=== PATIENT | female | born 2000 | race Caucasian/White ===

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

== ENCOUNTER 2022-04-10 09:25 | Emergency (ER) | payer OTHER, SELFPAY ==
--- NOTE | ~2022-04-10 | XR_ITS ---
EXAMINATION: XR finger 2nd LT min 2V INDICATION: Pain and swelling of the second finger, laceration TECHNIQUE: Four views of the left second finger are obtained. COMPARISON: None available FINDINGS: Bone alignment is normal. There is no fracture. The joint spaces are normal. There is soft tissue swelling of the finger. No radiopaque foreign body is identified. IMPRESSION: 1. Soft tissue swelling of the finger without acute osseous abnormality identified. Reviewed, dictated and finalized at location A. IMPRESSION: 1. Soft tissue swelling of the finger without acute osseous abnormality identif ied.
[2022-04-10 09:33] VITALS: BP 121/78; PULSE 93; RESP 16; TEMP 37.1; O2SAT 100
--- NOTE | 2022-04-10 09:38 | ED.UPPEXIN ---
HPI - Extremity Injury (Upper) General Chief Complaint: Extremity Injury, Upper Stated Complaint: left 2nd finger injury Time Seen by Provider: 04/10/22 09:55 Source: patient and RN notes reviewed Mode of arrival: ambulatory Limitations: no limitations History of Present Illness HPI narrative: 22-year-old female who is approximately 7 weeks presents concern for injury to the second digit of left hand. Reports she smashed it in a car door just prior to arrival. She reports it swollen, bruised, painful with small area of open skin. She reports decreased range of motion to the digit. She denies decreased sensation or strength. complaint: injury to: left and finger Related Data Home Medications Medication Instructions Recorded Confirmed No Home Medications 04/10/22 04/10/22 Allergies Allergy/AdvReac Type Severity Reaction Status Date / Time No Known Allergies Allergy Mild Verified 04/10/22 09:42 Review of Systems Review of Systems: CONSTITUTIONAL: Denies malaise, chills, sweats, or fever. SKIN: Denies rash or itching, redness, warmth MUSCULOSKELETAL: Reports pain, swelling, bruising to the second digit of the left hand NEUROLOGIC: Denies numbness, weakness All systems reviewed & are unremarkable except as noted in HPI and below PMFSH Past Medical History Medical History Migraine Social History Social History Gender identity (if verbalized by the patient): Female Comments At time of signature, agree with nursing past medical, surgical, social and family history. There is no relevant family history pertinent to the presenting complaint Exam Narrative: GENERAL: Well-appearing, well-nourished, and in no acute distress. HEAD: Normocephalic EYES: PERRLA, conjunctivae clear NECK: Supple. CHEST: Speaks in full sentences. No respiratory distress. HEART: Regular rate and rhythm. Normal and equal peripheral pulses. EXTREMITIES: Second digit of left hand has normal strength and sensation. 5/5 strength with digit flexion, extension. Range of motion limited. No clubbing, cyanosis. Moderate edema, ecchymosis, tenderness noted near the MIP joint. Normal digital cascade with flexion of fingers, median, ulnar and radial nerve intact. Normal sensation of each side of finger. Can perform 'okay' sign, 'cross over finger test of index and middle fingers' and 'thumbs up' sign. No scissoring. Normal thumb opposition. Good capillary refill and radial pulse. Distal capillary refill less than 3 seconds. Patient is right/left hand dominant SKIN: Warn, dry, intact, pink. Skin tear noted on the palmar aspect of the second digit of the left hand at the MIP joint NEURO: Alert and oriented x3. PSYCH: Normal mood and affect Course Course Emergency Course: Discussed benefits versus risks of x-ray with patient being . Patient requests x-ray, says she understand risks. She is worried about working with a broken finger. Patient is aware of diagnosis, understands and agrees to treatment plan. Anticipatory guidance given. Patient agrees to follow-up as directed and is aware of reasons to seek care at the emergency department. Portions of this record may have been created with voice recognition software Level of Care: Express Care Visit Vital Signs Vital signs: Vital Signs Temperature 98.7 F 04/10/22 09:33 Pulse Rate 93 04/10/22 09:33 Respiratory Rate 16 04/10/22 09:33 Blood Pressure 121/78 04/10/22 09:33 Pulse Oximetry 100 04/10/22 09:33 Oxygen Delivery Room Air 04/10/22 09:33 Temperature 98.7 F 04/10/22 09:33 Pulse Rate 93 04/10/22 09:33 Respiratory Rate 16 04/10/22 09:33 Blood Pressure 121/78 04/10/22 09:33 Pulse Oximetry 100 04/10/22 09:33 Oxygen Delivery Room Air 04/10/22 09:33 Reviewed. MDM - Extremity Injury (Upper) MDM Narrative Medical decision spencer
== END 2022-04-10 10:55 | disposition home or self-care (01) ==
PROVIDERS: Emergency Provider Nurse Practitioner; PCP Physician Assistant
DX: O9A.211 Injury, poisoning and certain other consequences of external causes complicating pregnancy, first trimester (principal); Z3A.01 Less than 8 weeks gestation of pregnancy; S63.611A Unspecified sprain of left index finger, initial encounter; X58.XXXA Exposure to other specified factors, initial encounter; J45.909 Unspecified asthma, uncomplicated
CPT/HCPCS: 29130; 73140; 99213; G0463

== ENCOUNTER 2022-09-21 23:28 | Observation (INO) | payer OTHER, SELFPAY ==
--- NOTE | 2022-09-21 23:28 | PC.NURSE ---
Patient arrived to OB unit with complaint of pain on upper abdomen, sides and a tight abdomen. Patient states that symptoms have been present x1 day. Patient states she has taken tylenol and warms baths at home. Patient denies any LOF and reports movement appropriate for gestational age.
[2022-09-21 23:39] VITALS: BP 103/63; PULSE 78
[2022-09-21 23:40] VITALS: BMI 21.9
--- NOTE | 2022-09-21 23:44 | OBADM ---
This patient, Anu Moss, admitted to the OB room OB Post 117 for observation. Patient/family oriented to hospital policies and general routines including ID bracelet, bed and alarms, visiting hours, pain management, procedures, bathroom and other care routines, personal items, smoking policy, room service/diet, and visiting hours. Patient/Family are encouraged to report perceived risks to care and to ask questions if they do not understand what they are told or what they should do.
--- NOTE | 2022-09-22 00:32 | PC.NURSE ---
Updated Dr. Lopez on maternal and assessment. FHT appropriate for gestational age. No contractions noted via toco monitor. Abdomen palpates soft. VSS. Patient reports upper abdominal pain prior to arrival, patient states she is resting comfortably currently and denies pain. Patient reports active movements.
--- NOTE | 2022-09-25 02:34 | PM.OBTRLD ---
OB - Triage/Final Diagnosis Visit Information Comments/Additional reasons for admission: I have assessed the risk for this patient, Anu Moss, and determined that she would benefit from observation care. Final Diagnosis (1) Cramping affecting , antepartum: Code(s): O26.899 - Other specified related conditions, unspecified trimester; R10.9 - Unspecified abdominal pain Status: Acute
== END 2022-09-22 00:45 | disposition home or self-care (01) ==
PROVIDERS: Admitting Provider Obstetrics & Gynecology; PCP Physician Assistant; Visit Provider Obstetrics & Gynecology
DX: O26.899 Other specified pregnancy related conditions, unspecified trimester (principal); R10.10 Upper abdominal pain, unspecified
CPT/HCPCS: G0378; G0379

== ENCOUNTER 2022-12-08 19:53 | Inpatient (IN) | payer OTHER, SELFPAY ==
[2022-12-08] VITALS (14 sets, daily range): BP systolic 96–151; BP diastolic 70–96; PULSE 51–72; TEMP 36.6
--- NOTE | 2022-12-08 20:15 | LDADM ---
This patient, Anu Moss, was admitted to Labor/Delivery/Recovery 108 on 12/08/22 at 19:53. Plans for labor, pain management and were discussed with patient. Patient/family oriented to hospital policies and general routines including ID bracelet, bed and alarms, visiting hours, pain management, procedures, bathroom and other care routines, personal items, smoking policy, room service/diet and guest tray routines, infant security routines, and visiting hours. Patient/Family are encouraged to report perceived risks to care and to ask questions if they do not understand what they are told or what they should do. See OBIX for further documentation.
[2022-12-08 20:54] LABS: Basophils Percent Auto 0.2 % (0.2-1.2); Eosinophils Percent Auto 0.4 % (0-4.4); Hematocrit 32.4 % (37.0-47.0); Hemoglobin 10.8 g/dL (12.0-15.0); Immature Granulocyte Absolute 0.03 K/mm3 (0.00-0.031); Immature Granulocyte Percent A 0.3 % (0-0.5); Lymphocytes Absolute Auto 1.33 K/mm3 (0.9-3.2); Lymphocytes Percent Auto 13.1 % (18.3-44.2); Mean Corpuscular HGB Conc 33.3 g/dl (32-36); Mean Corpuscular Volume 87.1 fl (80-100); Mean Platelet Volume 9.3 fl (7.4-10.4); Monocytes Absolute Auto 0.7 K/mm3 (0.1-0.6); Monocytes Percent Auto 6.8 % (2.6-8.5); Neutrophils Percent Auto 79.2 % (45.5-73.1); Platelet Count Result 246 k/mm3 (150-375); Red Blood Count 3.72 M/mm3 (4.2-5.4); Red Cell Distribution Width 13.1 % (11.5-14.5); White Blood Count 10.1 K/mm3 (4.5-10.0)
[2022-12-08] MEDS: miSOPROStol 25 MCG TABLET VAGINAL (21:13)
[2022-12-08] MEDS: LACTATED RINGERS 1,000 ML 125 ML IV CONT (21:14)
[2022-12-09] VITALS (232 sets, daily range): BP systolic 95–175; BP diastolic 51–140; PULSE 48–170; RESP 15–16; TEMP 36.3–37.1; O2SAT 93–100
--- NOTE | 2022-12-09 01:26 | WPDANESEPP ---
Anes - Eval Pre Procedure Procedure: Labor epidural Date/Time: 12/09/22 01:26 Pre Op Diagnosis: IOL Patient Data Age: 22 Gender: F Height: Weight: Last Vital Signs Temp 36.8 C 12/09/22 00:30 Pulse 69 12/09/22 01:15 Resp 15 12/09/22 00:30 BP 118/74 12/09/22 01:15 O2 Del Method Room Air 12/08/22 20:13 Allergies Allergy/AdvReac Type Severity Reaction Status Date / Time No Known Allergies Allergy Mild Verified 09/21/22 23:40 Home Medications Medication Instructions Recorded Confirmed Type Vitamin 1 tablet PO DAILY 09/21/22 12/08/22 History ondansetron 4 mg disintegrating 4 mg PO DAILY PRN Nausea 09/21/22 12/08/22 History tablet Laboratory Tests 12/08/22 12/08/22 12/08/22 20:26 20:26 20:26 WBC 10.1 K/mm3 H K/mm3 (4.5-10.0) RBC 3.72 M/mm3 L M/mm3 (4.2-5.4) Hgb 10.8 g/dL L g/dL (12.0-15.0) Hct 32.4 % L % (37.0-47.0) MCV 87.1 fl fl (80-100) MCH 29.0 pg pg (26-34) MCHC 33.3 g/dl g/dl (32-36) RDW 13.1 % % (11.5-14.5) Plt Count 246 k/mm3 k/mm3 (150-375) MPV 9.3 fl fl (7.4-10.4) Immature Gran % (Auto) 0.3 % % (0-0.5) Neut % (Auto) 79.2 % H % (45.5-73.1) Lymph % (Auto) 13.1 % L % (18.3-44.2) [place] % (Auto) 6.8 % % (2.6-8.5) Eos % (Auto) 0.4 % % (0-4.4) Baso % (Auto) 0.2 % % (0.2-1.2) Lymph # (Auto) 1.33 K/mm3 K/mm3 (0.9-3.2) [place] # (Auto) 0.7 K/mm3 H K/mm3 (0.1-0.6) Eos # (Auto) 0.0 K/mm3 K/mm3 (0-0.3) Baso # (Auto) 0.0 K/mm3 K/mm3 (0.0-0.1) Abs Immat Gran (auto) 0.03 K/mm3 K/mm3 (0.00-0.031) Absolute Neuts (auto) 8.0 K/mm3 H K/mm3 (1.3-6.7) Absolute Nucleated RBC 0.0 K/mm3 K/mm3 (0.0-0.012) Nucleated RBC % 0.0 % % (0.0-0.2) RPR Pending Blood Type O Positive Antibody Screen Negative Patient hx anesthesia problems: none Family hx anesthesia problems: none Results Review: All pre-operative results and documents have been reviewed as part of the pre-operative evaluation. [facility] Past Medical History Medical History ADD (attention deficit disorder) Anxiety and depression Asthma Migraine Migraine Scoliosis Family History Family History Mother Hypertension Bipolar 1 disorder Grandparent High cholesterol Bipolar 1 disorder Father Bipolar 1 disorder Social History Social History Smoking status: Never smoker Substance use: never Lack of Transportation: No Lack of Food: Never True Current Housing: I Have Housing Concerned About Future Housing: No Difficulty Paying Gas/Electric Bills: No Difficulty Paying for Meds: No Currently Unemployed: YES Education: High School Diploma/GED Difficulty w/ Childcare or Family Care: No Gender identity (if verbalized by the patient): Female Spiritual care concerns: No Exam Day of Procedure 12/09/22 01:26 Patient weight: normal Heart: regular rate and rhythm Lungs: normal air movement Airway: Mallampati scale Neurological: alert and oriented
[2022-12-09] MEDS: OXYTOCIN 30 UNITS/NS 500 ML 30 UNITS/500 ML BAG IV CONT (04:39)
[2022-12-09] MEDS: LACTATED RINGERS 1,000 ML 125 ML IV CONT ×2 (06:05→08:28)
[2022-12-09] MEDS: TERBUTALINE SULFATE 1 MG/ML VIAL 0.25 MG SUB-Q (07:21)
--- NOTE | 2022-12-09 07:27 | PM.IMHP ---
H&P: HPI History of Present Illness Date/Time: 12/09/22 07:27 Chief Complaint: induction of labor Narrative: Anu is a 22yo G1 at 39.1 IOL for IUGR. Normal dopplers and testing. otherwise uncomplicated. Received cytotec x1 and pitocin overnight, has had a couple prolonged decelerations this morning, one just now following AROM. Review of Systems Review of Systems: All systems reviewed & are unremarkable except as noted in HPI and below PMFSH Past Medical History Medical History ADD (attention deficit disorder) Anxiety and depression Asthma Migraine Migraine Scoliosis Family History Family History Mother Hypertension Bipolar 1 disorder Grandparent High cholesterol Bipolar 1 disorder Father Bipolar 1 disorder Social History Social History Smoking status: Never smoker Substance use: never Lack of Transportation: No Lack of Food: Never True Current Housing: I Have Housing Concerned About Future Housing: No Difficulty Paying Gas/Electric Bills: No Difficulty Paying for Meds: No Currently Unemployed: YES Education: High School Diploma/GED Difficulty w/ Childcare or Family Care: No Gender identity (if verbalized by the patient): Female Spiritual care concerns: No Meds Home Medications and Allergies Home Medications Medication Instructions Recorded Confirmed Type Vitamin 1 tablet PO DAILY 09/21/22 12/08/22 History ondansetron 4 mg disintegrating 4 mg PO DAILY PRN Nausea 09/21/22 12/08/22 History tablet Allergies Allergy/AdvReac Type Severity Reaction Status Date / Time No Known Allergies Allergy Mild Verified 09/21/22 23:40 Vital Signs Vital Signs - 24 hr 12/08/22 20:13 12/08/22 21:00 12/08/22 21:30 Temperature Pulse Rate 68 60 Respiratory Rate Blood Pressure 123/70 137/89 Pulse Oximetry Oxygen Delivery Room Air 12/08/22 21:45 12/08/22 20:00 12/08/22 22:00 Temperature 98 F 98 F Pulse Rate 61 62 Respiratory Rate Blood Pressure 119/77 137/83 Pulse Oximetry Oxygen Delivery 12/08/22 22:15 12/08/22 22:37 12/08/22 22:45 Temperature Pulse Rate 63 62 57 L Respiratory Rate Blood Pressure 116/81 122/80 136/86 Pulse Oximetry Oxygen Delivery 12/08/22 23:00 12/08/22 23:17 12/08/22 23:30 Temperature Pulse Rate 51 L 66 55 L Respiratory Rate Blood Pressure 151/80 H 96/80 L 120/81 Pulse Oximetry Oxygen Delivery 12/08/22 23:45 12/08/22 23:49 12/08/22 23:53 Temperature Pulse Rate 72 60 60 Respiratory Rate Blood Pressure 127/91 H 140/87 134/96 H Pulse Oximetry Oxygen Delivery 12/09/22 00:00 12/09/22 00:15 12/09/22 00:30 Temperature 97.4 F L 98.3 F Pulse Rate 60 69 65 Respiratory Rate 15 Blood Pressure 151/90 H 129/87 134/94 H Pulse Oximetry Oxygen Delivery 12/09/22 00:45 12/09/22 01:15 12/09/22 01:30 Temperature Pulse Rate 70 69 84 Respiratory Rate Blood Pressure 138/94 H 118/74 135/92 H Pulse Oximetry Oxygen Delivery 12/09/22 01:45 12/09/22 01:50 12/09/22 01:51 Temperature Pulse Rate 90 78 Respiratory Rate Blood Pressure 130/82 124/88 Pulse Oximetry 94 99 Oxygen Delivery 12/09/22 01:55 12/09/22 01:57 12/09/22 01:57 Temperature Pulse Rate 68 Respiratory Rate Blood Pressure 126/74 125/76 Pulse Oximetry 100 Oxygen Delivery 12/09/22 01:57 12/09/22 01:59 12/09/22 02:00 Temperature 97.8 F Pulse Rate 70 71 78 Respiratory Rate Blood Pressure 126/78 113/60 Pulse Oximetry 100 Oxygen Delivery 12/09/22 02:03 12/09/22 02:05 12/09/22 02:06 Temperature Pulse Rate 64 69 Respiratory Rate Blood Pressure 124/74 115/72 Pulse Oximetry 99 Oxygen Delivery 12/09/22 02:09
[2022-12-09 09:40] LABS: Rapid Plasma Reagin Non-Reactive (NonReactive)
[2022-12-09] MEDS: ONDANSETRON INJ 4 MG/2 ML VIAL IV PUSH (10:33)
[2022-12-09] MEDS: SODIUM CHLORIDE 0.9% IV 300 ML 600 ML I-UTERINE (10:58)
--- NOTE | 2022-12-09 15:52 | P.PCNOB_ITS ---
OB - Delivery Note Procedure Delivery date: 12/09/22 Procedure: Events: Intrauterine Growth Restriction (IUGR) Intrapartal Events: Decelerations Induction method: AROM, Per Misoprostol Protocol and Per Pitocin Protocol Delivery monitor: External FHT and Internal Uterine Route of delivery: Laceration Description: Labial (bilateral) and Other (right hymenal) Delivery repair: vicryl Specimen: Yes Quantitative Blood Loss (ml): 190 Anesthesia type: Epidural Disposition: Floor Narrative: With adequate expulsive efforts by the mother, the baby's head was delivered OA. The baby's anterior shoulder was delivered under the pubic symphysis without difficulty. The posterior shoulder and the rest of the baby delivered without difficulty. The was placed on the mothers chest and suctioned and stimulated. The cord was clamped and cut after 30 seconds. Mother and baby both stable. [place] Baby Date of : 12/09/22 Time of : 15:30 Weeks of gestation at delivery: 39 Infant gender: Female Weight (pounds): 6 Weight (ounces): 3 presentation: vertex Placenta delivery description: Spontaneous Cord Vessel Description: 3 Vessels, Delayed Cord Clamping and Other (short cord) score one minute: 8 score five minutes: 9
[2022-12-09] MEDS: OXYTOCIN 30 UNITS/NS 500 ML 30 UNITS/500 ML BAG 125 UNITS IV CONT (16:05)
[2022-12-09] MEDS: BENZOCAINE 20% AER SPR (*SP) 56 GM CAN 1 SPRAY TOPICAL (17:31)
[2022-12-09] MEDS: WITCH HAZEL 40 PADS 1 PAD TOPICAL (17:31)
--- NOTE | 2022-12-09 17:50 | PC.NURSE ---
Patient transferred to post room #290 via wheelchair. Support person present. Oriented to unit, room, information board, rooming in, admission packet and security measures. Patient verbalizes understanding.
[2022-12-09] MEDS: IBUPROFEN 600 MG TABLET PO (18:07)
[2022-12-10 04:00] VITALS: BP 120/73; PULSE 61; RESP 16; TEMP 37.3; O2SAT 97
[2022-12-10] MEDS: IBUPROFEN 600 MG TABLET PO (04:21)
[2022-12-10 04:50] LABS: Hematocrit 29.9 % (37.0-47.0); Hemoglobin 9.7 g/dL (12.0-15.0)
--- NOTE | 2022-12-10 07:52 | P.PNOB_ITS ---
OB - PN: Subj Subjective Date/time seen: 12/10/22 07:52 Patient comments: no complaints and pain well controlled baby status: doing well and nursing well [place] feeding status: exclusively breast feeding OB - PN: Obj Data Labs 12/10/22 04:19 Labs: Laboratory Results - last 24 hr 12/08/22 12/10/22 20:26 04:19 Hgb 9.7 L Hct 29.9 L RPR Non-reactive OB - PN A/P Assessment and Plan (1) , delivered: Code(s): O80 - Encounter for full-term uncomplicated delivery Status: Acute Plan day: 1 Plan: routine care Comments: anemia- iron doing great otherwise home tomorrow Time Spent With Patient Time: Total time spent is greater than 50% in coordination of care (as documented) at patient's floor/unit and/or counseling patient: Time with patient: less than 15 minutes Exam Narrative: NAD abdomen soft, nontender, fundus firm below the umbilicus Extremities nontender, 1+ edema
[2022-12-10 08:20] VITALS: BP 108/68; PULSE 58; RESP 18; TEMP 36.9; O2SAT 100
[2022-12-10] MEDS: MULTIVIT/MIN/PREN/FOL AC/IRON TABLET 1 TAB PO (08:55)
[2022-12-10] MEDS: POLYSACCHARIDE IRON COMPLEX 150 MG CAPSULE PO (08:55)
[2022-12-10] MEDS: DOCUSATE SODIUM 100 MG CAPSULE PO (08:55)
[2022-12-10 11:58] VITALS: BP 111/71; PULSE 67; RESP 16; TEMP 37.3; O2SAT 99
--- NOTE | 2022-12-10 14:08 | PM.OBDSVD ---
DS: Admitting Diagnosis Discharge Date 12/10/22 Admitting Diagnosis IUP 39.1, IUGR DS: Discharge Diagnosis Discharge Diagnosis (1) , delivered: Code(s): O80 - Encounter for full-term uncomplicated delivery Status: Acute OB - DS: Summary Hospital Course Hospital Course: Anu was admitted for IOL secondary to IUGR. She proceeded to have an uncomplicated vaginal delivery and course and was discharged home on PPD 1. OB Procedures : NST and Ultrasound OB Procedures Intrapartum: Spontaneous Vag Delivery OB Procedures: : None Peripartum Data Delivery Method: Natural Vaginal Status at Discharge Functional status at discharge: independent ambulation Time Spent with Patient Time attestation: Total time spent providing and/or coordinating discharge services: Exam Narrative: NAD abdomen soft, appropriately tender Ext non tender, 1+ edema DS: Data Data Completed and Pending Pending studies at discharge: Pending at discharge 12/09/22 16:15 Surgical [PTH] Routine Labs on day of discharge: Labs from last 24 hours 12/10/22 04:19 Hgb 9.7 L Hct 29.9 L Discharge Plan Discharge Attending physician on discharge: Yaima Lopez Discharging Clinician: Yaima Lopez Anticipated Discharge Date/Time: 12/10/22 14:07 Patient Disposition: Home, Self-Care Activity: pelvic rest Diet: regular Patient Instructions: Antibiotic Form Stand Alone Forms: General Discharge Information Follow-up/Referrals: Yaima Lopez MD [Physician] - 4 Weeks Discharge Medications: Continued Vitamin 1 tablet PO DAILY Discontinued ondansetron 4 mg tablet,disintegrating 4 mg PO DAILY PRN (Reason: Nausea) Date of admission: 12/08/22 19:53 Primary Care Provider: Marine,Darcie Tinajero Admitting Provider: Yaima Lopez Attending physician on admission: Yaima Lopez Condition: Stable
--- NOTE | 2022-12-10 14:18 | PC.NURSE ---
[id number] Introductions were made, then consulted with patient to assess needs related to . Mother led the conversation with her?plans to feed?her infant and the?experience so far. Resources provided for inpatient and outpatient services with the feeding sheet, mom/baby guide and name written on the white board. Mother voiced understanding of information and mother requests assistance since it has been 2-3 hours since the start of the last . Mother works well with her infant with encouragement and education. Encouraged understanding of the benefits of skin to skin (demonstrating unwrapping and placing upright on her chest), stimulating with massage touch, changing positions to encourage wakefulness, how to watch for early feeding cues, responsive feeding, feeding on demand (aiming for 8-12 times in 24 hours, about every 2-3 hours), milk production,hand expression, building/maintaining a milk supply, duration of feeding, signs of adequate intake/output and how to record on the feeding sheet. Reviewed positioning and ear, shoulder, hip alignment, supporting the breast to facilitate a deep latch, asymmetrical latch (off-center), leading with the chin with a big, open, wide gape and body close to mother. latched optimally to the right, then left breast in cross cradle position. Education given to mother of how to visualize suck/swallow ratios and listen for drinking at the breast. was able to maintain latch without discomfort to mother. Nipple care reviewed with optimal latch and good positioning. Reviewed with mother to encourage a deep latch with her infant and not allow to latch only to the nipple. Reviewed good handwashing when or touching the breast/nipples to prevent infection. Resources used to facilitate learning were used with the visual handouts, tool, mom and baby guide. Encouraged mother to stay another night but the mother desires to go home. Mother led the conversation with her experience and plan to feed her infant so far and her ability to independently latch optimally without discomfort. Mother is feeding appropriately for growth of and understands stimulating to eat if needed. Infant has had appropriate feedings in the last 24 hours meets the outcomes for weight, output and jaundice at this time. Mother states she is confident to continue effectively breastfeed her infant at home, when to call for assistance and denies any additional assistance or education at this time. Reinforced understanding of milk production, transition of milk, signs of adequate intake, transition of stool, prevention/relief of engorgement, responsive watching for feeding cues, the different methods of stimulating to breastfeed 2-3 hours after the start of the last feeding, community resources, and when to call a provider using the resource of the mom and baby guide. Mother voiced understanding of the education shared. Reported to the primary RN.
--- NOTE | 2022-12-10 15:00 | PC.NURSE ---
Patient viewed the discharge video Mother & Baby Care, The First Two Weeks . Patient was given the opportunity and encouraged to ask questions. Patient verbalized understanding of information shared and has been given the mother/baby guide for home reference.
[2022-12-11 08:38] VITALS: BP 143/90; PULSE 78; RESP 16; TEMP 37; O2SAT 100
== END 2022-12-10 17:20 | disposition home or self-care (01) | DRG 560 ==
LOC: ANHLDR 19:57 → ANHOB2 12-09 18:01
PROVIDERS: Admitting Provider Obstetrics & Gynecology; PCP Physician Assistant; Visit Provider Obstetrics & Gynecology
DX: O69.3XX0 Labor and delivery complicated by short cord, not applicable or unspecified (principal); O36.5930 Maternal care for other known or suspected poor fetal growth, third trimester, not applicable or unspecified; O76 Abnormality in fetal heart rate and rhythm complicating labor and delivery; O70.0 First degree perineal laceration during delivery; Z3A.39 39 weeks gestation of pregnancy; Z37.0 Single live birth
CPT/HCPCS: 36415; 85014; 85018; 85025; 86592; 86850; 86900; 86901; 88307; A9270; J2405; J2590; J2795; J3105; J7030; J7120

== ENCOUNTER 2023-04-01 17:35 | Emergency (ER) | payer OTHER, SELFPAY ==
[2023-04-01 17:36] VITALS: BP 132/66; PULSE 67; RESP 16; TEMP 36.8; O2SAT 100
--- NOTE | 2023-04-01 17:41 | PC.NURSE ---
left eye 20/100 right eye 20/25 both eyes 20/50
--- NOTE | 2023-04-01 20:55 | PC.NURSE ---
Patient called up 3 times to triage area. No answer
== END 2023-04-01 20:55 | disposition left against medical advice (07) ==
PROVIDERS: PCP Physician Assistant
DX: S05.92XA Unspecified injury of left eye and orbit, initial encounter (principal)
CPT/HCPCS: 99199

== ENCOUNTER 2024-02-20 17:30 | Emergency (ER) | payer OTHER, SELFPAY ==
[2024-02-20] VITALS (7 sets, daily range): BP systolic 110–123; BP diastolic 67–79; PULSE 68–88; RESP 14–16; TEMP 36.8; O2SAT 97–100
--- NOTE | ~2024-02-20 | CT_ITS ---
CT brain wo con Ordering provider: Gemma Carter PA-C History: 24 years Female with . head injury . Comparison: None. Technique: CT of the head without contrast. Radiation reduction technique utilized. DLP is 605.33 mGy. FINDINGS: BRAIN PARENCHYMA AND CSF SPACES: No midline shift, mass effect or hemorrhage. The brain parenchyma a nd CSF spaces are otherwise normal. VISUALIZED PARANASAL SINUSES: Well aerated. MASTOIDS: Well aerated. BONES: The bones appear intact. SOFT TISSUES: Visualized nasopharynx is normal. Superficial soft tissues are normal. IMPRESSION: No acute intracranial findings. Reviewed, dictated and finalized at location A.
--- NOTE | 2024-02-20 18:26 | ECG_ITS ---
Test Date: 2024-02-20 19:02:13 Measurements Intervals [place] Rate: 67 P: 62 TX: 134 QRS: 48 QRSD: 94 T: 43 QT: 417 QTc: 442 Interpretive Statements SINUS RHYTHM No previous ECG available for comparison Electronically Signed On 02-21-2024 11:08:55 CDT by Jarrett Quintana M.D.
[2024-02-20] MEDS: SODIUM CHLORIDE 0.9% IV 1,000 ML 999 ML IV CONT (18:42)
[2024-02-20 18:43] LABS: Basophils Percent Auto 0.4 % (0.2-1.2); Eosinophils Percent Auto 0.2 % (0-4.4); Hemoglobin 11.8 g/dL (12.0-15.0); Immature Granulocyte Absolute 0.04 K/mm3 (0.00-0.031); Immature Granulocyte Percent A 0.4 % (0-0.5); Lymphocytes Absolute Auto 0.96 K/mm3 (0.9-3.2); Mean Corpuscular HGB Conc 34.7 g/dl (32-36); Mean Corpuscular Hemoglobin 29.6 pg (26-34); Mean Corpuscular Volume 85.4 fl (80-100); Mean Platelet Volume 9.4 fl (7.4-10.4); Monocytes Absolute Auto 0.5 K/mm3 (0.1-0.6); Monocytes Percent Auto 5.4 % (2.6-8.5); Neutrophils Percent Auto 83.6 % (45.5-73.1); Platelet Count Result 237 k/mm3 (150-375); Red Blood Count 3.98 M/mm3 (4.2-5.4); Red Cell Distribution Width 13.2 % (11.5-14.5); White Blood Count 9.6 K/mm3 (4.5-10.0)
[2024-02-20 19:04] LABS: Alanine Aminotransferase 7 U/L (6-35); Albumin Level 4.1 g/dL (3.5-5.1); Alkaline Phosphatase 53 U/L (38-126); Anion Gap 7 mmol/L (4-12); Aspartate Amino Transferase 17 U/L (14-36); Bilirubin,Total 0.4 mg/dL (0.2-1.3); Blood Urea Nitrogen 9 mg/dL (7-17); Calcium 9.3 mg/dL (8.4-10.2); Carbon Dioxide 24 mmol/L (22-30); Chloride 104 mmol/L (98-107); Estimated CRCL calculation 141 ml/min; Estimated Glomerular Filt Rate > 60; Glucose 85 mg/dL (65-110); Potassium 3.8 mmol/L (3.4-5.0); Sodium 135 mmol/L (137-145)
[2024-02-20 19:13] LABS: Troponin I < 0.012 ng/mL (0.000-0.034)
--- NOTE | 2024-02-20 19:15 | ED.SYNCOPE ---
HPI - Syncope General Chief Complaint: Syncope Stated Complaint: syncope, 11 weeks Time Seen by Provider: 02/20/24 18:27 Source: patient Mode of arrival: ambulatory Limitations: no limitations History of Present Illness HPI narrative: This is a 24 year old female that presents to the ER for syncopal episode today. Reports she was at home and was feeling hot and went to use the restroom. She stood up and lost consciousness. Reports hitting her head. Reports a laceration over the left eyebrow. She is currently 11 weeks and has had routine care. Denies chest pain, shortness of breath, palpitations or lower extremity edema. Related Data Home Medications Medication Instructions Recorded Confirmed Vitamin 1 tablet PO DAILY 09/21/22 12/08/22 Allergies Allergy/AdvReac Type Severity Reaction Status Date / Time No Known Allergies Allergy Mild Verified 09/21/22 23:40 Review of Systems Review of Systems: CONSTITUTIONAL: Denies fever EYES: Denies visual changes CARDIOVASCULAR: Denies chest pain, palpitations, or edema. RESPIRATORY: Denies dyspnea. GASTROINTESTINAL: Denies vomiting MUSCULOSKELETAL: Denies back pain, joint pain, or myalgia. NEUROLOGIC: Denies numbness, or weakness. All systems reviewed & are unremarkable except as noted in HPI and below PMFSH Past Medical History Medical History ADD (attention deficit disorder) Anxiety and depression Asthma Migraine Migraine Scoliosis Family History Family History Mother Hypertension Bipolar 1 disorder Grandparent High cholesterol Bipolar 1 disorder Father Bipolar 1 disorder Social History Social History Smoking status: Never smoker Substance use: never Lack of Transportation: No Lack of Food: Never True Current Housing: I Have Housing Concerned About Future Housing: No Difficulty Paying Gas/Electric Bills: No Difficulty Paying for Meds: No Currently Unemployed: YES Education: High School Diploma/GED Difficulty w/ Childcare or Family Care: No Gender identity (if verbalized by the patient): Female Spiritual care concerns: No Exam Narrative: GENERAL: Well-appearing, well-nourished, and in no acute distress. HEAD: Normocephalic. 1cm linear superficial laceration to the left eyebrow EYES: PERRLA and EOMI. ENT: Nares clear, no rhinorrhea or epistaxis. Mucous membranes moist. Oropharynx without tonsillar hypertrophy exudate or other lesions. Bilateral TMs pearly goodwin non-bulging NECK: Supple. No adenopathy or masses. No midline cervical spine tenderness CHEST: Clear to auscultation. No respiratory distress. No wheezes rales or rhonchi HEART: Regular rate and rhythm. No murmur heard. Normal peripheral pulses. EXTREMITIES: Normal range of motion. No edema. Strength equal in bilateral upper and lower extremities (5/5) SKIN: Warm, dry, no rash. NEURO: No focal deficits. Alert and oriented x3. Cranial nerves 2-12 grossly intact PSYCH: Normal mood and affect Course Course Emergency Course: Patient and family updated on workup and agree with plan of care Consultations Consultation #1: Spoke with Dr. Nichole about patient and workup who will follow up in clinic Date: 02/20/24 Vital Signs Vital signs: Vital Signs Temperature 98.2 F 02/20/24 17:31 Pulse Rate 85 02/20/24 17:31 Respiratory Rate 16 02/20/24 17:31 Blood Pressure 120/67 02/20/24 17:31 Pulse Oximetry 100 02/20/24 17:31 Oxygen Delivery Room Air 02/20/24 17:31 Temperature 98.2 F 02/20/24 17:31 Pulse Rate 72 02/20/24 19:12 Respiratory Rate 14 02/20/24 19:12 Blood Pressure 113/74 02/20/24 19:12 Pulse Oximetry 97 02/20/24 19:12 Oxygen Delivery Room Air 02/20/24 17:31 Procedures Laceration Laceration 1: Date
--- NOTE | 2024-02-20 19:35 | PC.NURSE ---
this rn assumed care of patient. this rn took patient report from Dafne MILTON, and KARINE Escobar.
[2024-02-20 19:54] LABS: Appearance Urine Clear (Clear); Bilirubin Urine Negative (Negative); Blood Urine Negative (Negative); Color Urine Yellow (Yellow); Glucose Urine UA Negative (Negative); Ketones Urine Negative (Negative); Leukocyte Esterase Ur Negative LEU/UL (Negative); Nitrate Urine Negative (Negative); Protein Urine Negative (Negative); Specific Grav Ur 1.005 (1.001-1.035); Urobilinogen Urine 0.2 mg/dL (<2.0)
[2024-02-20 19:57] LABS: Add Urine Microscopic? NO
[2024-02-20] MEDS: ACETAMINOPHEN 500 MG TABLET 1000 MG PO (21:01)
--- NOTE | 2024-02-20 21:40 | PC.NURSE ---
EMELINA Menendez assessed heart tones at bedside.
== END 2024-02-20 21:50 | disposition home or self-care (01) ==
PROVIDERS: Emergency Provider Physician Assistant; PCP Physician Assistant
DX: O26.891 Other specified pregnancy related conditions, first trimester (principal); S01.81XA Laceration without foreign body of other part of head, initial encounter; R55 Syncope and collapse; D64.9 Anemia, unspecified; Z3A.11 11 weeks gestation of pregnancy; W22.8XXA Striking against or struck by other objects, initial encounter
CPT/HCPCS: 36415; 70450; 80053; 81003; 81025; 84484; 85025; 93005; 96360; 96361; 99284; A9270; J7030

== ENCOUNTER 2024-03-01 21:12 | Emergency (ER) | payer OTHER, SELFPAY ==
[2024-03-01 21:25] VITALS: BP 93/60; PULSE 89; RESP 17; TEMP 36.2; O2SAT 98
--- NOTE | 2024-03-01 23:23 | PC.NURSE ---
Pt called x2 from triage by this RN. Unable to contact via charted phone number. Pt marked as LWBS by this RN.
== END 2024-03-01 23:23 | disposition left against medical advice (07) ==
PROVIDERS: PCP Physician Assistant
DX: R51.9 Headache, unspecified (principal)
CPT/HCPCS: 99199

== ENCOUNTER 2024-07-16 00:27 | Observation (INO) | payer OTHER, SELFPAY ==
[2024-07-16] VITALS (12 sets, daily range): BP systolic 101–106; BP diastolic 55–67; PULSE 25–205; O2SAT 76–98
[2024-07-16 01:44] LABS: Add Urine Microscopic? YES; Appearance Urine Cloudy (Clear); Bacteria Urine 1+ /hpf; Bilirubin Urine Negative (Negative); Blood Urine Negative (Negative); Color Urine Yellow (Yellow); Glucose Urine UA Negative (Negative); Ketones Urine Negative (Negative); Leukocyte Esterase Ur 2+ LEU/UL (Negative); Nitrate Urine Negative (Negative); Non Pathogenic Casts 0-2; Protein Urine Negative (Negative); Specific Grav Ur 1.019 (1.001-1.035); Squamous Epithelial Cell Urine Few /hpf (Few); WBC Urine 21-50 /hpf (0-3); pH Urine 7.5 (5.0-9.0)
--- NOTE | 2024-08-12 21:12 | P.PNOB_ITS ---
OB - Triage/Final Diagnosis Visit Information Comments/Additional reasons for admission: I have assessed the risk for this patient, Anu Moss, and determined that she would benefit from observation care. Evaluation Laboratory results: Laboratory Tests 07/16/24 01:33 Urine Color Yellow Urine Appearance Cloudy H Urine pH 7.5 Ur Specific [place] 1.019 Urine Protein Negative Urine Glucose (UA) Negative Urine Ketones Negative Ur Blood (Man) Negative Urine Nitrate Negative Urine Bilirubin Negative Urine Urobilinogen 1.0 Leukocyte Esterase Rfl 2+ H Urine RBC 3-5 H Urine WBC 21-50 H Ur Squamous Epith Cells Few Urine Bacteria 1+ H Urine Casts 0-2 Final Diagnosis (1) False labor: Code(s): O47.9 - False labor, unspecified Status: Acute
== END 2024-07-16 02:31 | disposition home or self-care (01) ==
PROVIDERS: Admitting Provider Obstetrics & Gynecology; PCP Physician Assistant; Visit Provider Obstetrics & Gynecology
DX: O47.03 False labor before 37 completed weeks of gestation, third trimester (principal); Z3A.32 32 weeks gestation of pregnancy
CPT/HCPCS: 81001; 87086; 99199; G0378; G0379

== ENCOUNTER 2024-07-29 10:14 | Outpatient (RCR) | payer OTHER, SELFPAY ==
[2024-07-28] MEDS: BETAMETHASONE SOD PHOS/ACETATE 30 MG/5 ML VIAL 12 MG IM (09:59)
[2024-07-29] MEDS: BETAMETHASONE SOD PHOS/ACETATE 30 MG/5 ML VIAL 12 MG IM (10:21)
== END 2024-10-26 23:59 | disposition home or self-care (01) ==
LOC: ANHOBOP 10:14
PROVIDERS: Visit Provider Obstetrics & Gynecology
DX: O36.8990 Maternal care for other specified fetal problems, unspecified trimester, not applicable or unspecified (principal)
CPT/HCPCS: 96372; J0702

== ENCOUNTER 2024-08-05 13:57 | Observation (INO) | payer OTHER, SELFPAY ==
[2024-08-05] VITALS (52 sets, daily range): BP systolic 107–121; BP diastolic 56–79; PULSE 25–154; RESP 16; TEMP 37.4; O2SAT 69–100; BMI 22.0
--- NOTE | 2024-08-05 15:06 | OBADM ---
This patient, Anu Moss, admitted to the OB room 116 for observation. Patient/family oriented to hospital policies and general routines including ID bracelet, bed and alarms, visiting hours, pain management, procedures, bathroom and other care routines, personal items, smoking policy, room service/diet, and visiting hours. Patient/Family are encouraged to report perceived risks to care and to ask questions if they do not understand what they are told or what they should do.
--- NOTE | 2024-08-05 15:45 | PC.NURSE ---
Taylor Barton CNM informed pt has only had 1 contraction since Brethine was given over 1 1/2 hours ago. Order received for Procardia XL now and to send pt home with RX for 7 days.
--- NOTE | 2024-08-05 15:56 | PC.NURSE ---
Taylor Barton CNM also informed pt's spotting has resolved and no leakage of fluid.
[2024-08-05 16:00] LABS: Add Urine Microscopic? YES; Appearance Urine Clear (Clear); Bilirubin Urine Negative (Negative); Blood Urine Negative (Negative); Color Urine Yellow (Yellow); Glucose Urine UA Negative (Negative); Ketones Urine Trace mg/dL (Negative); Leukocyte Esterase Ur 1+ LEU/UL (Negative); Nitrate Urine Negative (Negative); Protein Urine Negative (Negative)
[2024-08-05] MEDS: TERBUTALINE SULFATE 1 MG/ML VIAL 0.25 MG SUB-Q (16:10)
[2024-08-05 16:19] LABS: WBC Urine 0-5 /hpf (0-3)
[2024-08-05 16:20] LABS: Squamous Epithelial Cell Urine Few /hpf (Few)
[2024-08-05] MEDS: NIFEdipine 30 MG TAB.ER.24 PO (18:07)
--- NOTE | 2024-08-06 07:39 | P.PNOB_ITS ---
OB - Triage/Final Diagnosis Visit Information Date of evaluation: 08/05/24 Reason for evaluation: threatened labor Comments/Additional reasons for admission: I have assessed the risk for this patient, Anu Moss, and determined that she would benefit from observation care. Evaluation Laboratory results: Laboratory Tests 08/05/24 15:47 Urine Color Yellow Urine Appearance Clear Urine pH 7.0 Ur Specific [place] 1.010 Urine Protein Negative Urine Glucose (UA) Negative Urine Ketones Trace H Ur Blood (Man) Negative Urine Nitrate Negative Urine Bilirubin Negative Urine Urobilinogen 1.0 Leukocyte Esterase Rfl 1+ H Urine WBC 0-5 Ur Squamous Epith Cells Few Vital signs: Vital Signs - 24 hr 08/05/24 14:29 08/05/24 15:06 08/05/24 15:06 Temperature 37.4 C 37.4 C Pulse Rate 87 80 78 Respiratory Rate 16 16 Blood Pressure 121/76 113/67 113/67 Pulse Oximetry 100 100 08/05/24 15:11 08/05/24 15:15 08/05/24 15:16 Temperature Pulse Rate 82 Respiratory Rate Blood Pressure 110/67 Pulse Oximetry 100 99 08/05/24 15:21 08/05/24 15:26 08/05/24 15:30 Temperature Pulse Rate 87 Respiratory Rate Blood Pressure 117/79 Pulse Oximetry 100 100 08/05/24 15:31 08/05/24 15:36 08/05/24 15:41 Temperature Pulse Rate Respiratory Rate Blood Pressure Pulse Oximetry 99 100 98 08/05/24 15:46 08/05/24 16:00 08/05/24 16:00 Temperature Pulse Rate Respiratory Rate Blood Pressure Pulse Oximetry 69 L 82 L 86 L 08/05/24 16:01 08/05/24 16:06 08/05/24 16:10 Temperature Pulse Rate 77 Respiratory Rate Blood Pressure 107/68 Pulse Oximetry 100 100 08/05/24 16:11 08/05/24 16:16 08/05/24 16:21 Temperature Pulse Rate Respiratory Rate Blood Pressure Pulse Oximetry 100 100 100 08/05/24 16:26 08/05/24 16:31 08/05/24 16:36 Temperature Pulse Rate Respiratory Rate Blood Pressure Pulse Oximetry 100 100 95 08/05/24 16:41 08/05/24 16:46 08/05/24 16:50 Temperature Pulse Rate Respiratory Rate Blood Pressure Pulse Oximetry 100 100 82 L 08/05/24 16:51 08/05/24 16:56 08/05/24 17:00 Temperature Pulse Rate 96 Respiratory Rate Blood Pressure 118/61 Pulse Oximetry 80 L 100 08/05/24 17:01 08/05/24 17:06 08/05/24 17:11 Temperature Pulse Rate Respiratory Rate Blood Pressure Pulse Oximetry 98 100 100 08/05/24 17:16 08/05/24 17:21 08/05/24 17:26 Temperature Pulse Rate Respiratory Rate Blood Pressure Pulse Oximetry 100 100 100 08/05/24 17:31 08/05/24 17:36 08/05/24 17:41 Temperature Pulse Rate Respiratory Rate Blood Pressure Pulse Oximetry 100 100 100 08/05/24 17:46 08/05/24 17:51 08/05/24 17:56 Temperature Pulse Rate Respiratory Rate Blood Pressure Pulse Oximetry 100 100 100 08/05/24 18:00 08/05/24 18:01 08/05/24 18:06 Temperature Pulse Rate 78 Respiratory Rate Blood Pressure 107/56 L Pulse Oximetry 98 100 08/05/24 18:11 08/05/24 18:16 08/05/24 18:21 Temperature Pulse Rate Respiratory Rate Blood Pressure Pulse Oximetry 99 97 98 08/05/24 18:26 08/05/24 18:28 08/05/24 18:28 Temperature Pulse Rate Respiratory Rate Blood Pressure Pulse Oximetry 100 98 99 08/05/24 18:33 08/05/24 18:38 08/05/24 18:40 Temperature Pulse Rate Respiratory Rate Blood Pressure Pulse Oximetry 99 98 100 08/05/24 18:42 Temperature Pulse Rate Respiratory Rate Blood Pressure Pulse Oximetry 99
== END 2024-08-05 18:48 | disposition home or self-care (01) ==
PROVIDERS: Admitting Provider Obstetrics & Gynecology; Referring Provider Advanced Practice Midwife; Visit Provider Obstetrics & Gynecology
DX: O47.03 False labor before 37 completed weeks of gestation, third trimester (principal); Z3A.35 35 weeks gestation of pregnancy
CPT/HCPCS: 81001; 87086; 96372; A9270; G0378; G0379; J3105

== ENCOUNTER 2024-08-17 14:31 | Inpatient (IN) | payer OTHER, SELFPAY ==
[2024-08-17] VITALS (53 sets, daily range): BP systolic 92–135; BP diastolic 60–82; PULSE 70–107; TEMP 37.2–37.6; O2SAT 92–100; BMI 22.4
--- NOTE | ~2024-08-17 | US_ITS ---
EXAMINATION: US OB BPP wo non-stress DATE: 08/17/2024 15:17 [employer]MING T[employer]BE SELECTOR INDICATION: Prolonged decelerations TECHNIQUE: Real-time transabdominal obstetric ultrasound. FINDINGS: There is a single intrauterine gestation in vertex presentation. The placenta is anterior without pl acenta previa. cardiac activity and movement is noted with a heart rate of 131 beats per minute. Biophysical profile: breathin of 2 movement: 2 of 2 tone: 2 of 2 Deepest measured amniotic fluid pocket: 2 of 2 (2.9 cm) Total score: 8 of 8 The cervix is not visualized on the submitted images. Repeat examination may be performed if clinically needed. IMPRESSION: 1. Single intrauterine gestation in vertex presentation. 2: Total biophysical profile score of 8 out of 8. The cervix is not visualized on the submitted images. Repeat examination may be performed if clinically needed. Reviewed, dictated and finalized at location A. ING TUBE SELECTOR
--- NOTE | 2024-08-17 14:52 | LDADM ---
This patient, Anu Moss, was admitted to Labor/Delivery/Recovery 105 on 08/17/24 at 15:06. Plans for labor, pain management and were discussed with patient. Patient/family oriented to hospital policies and general routines including ID bracelet, bed and alarms, visiting hours, pain management, procedures, bathroom and other care routines, personal items, smoking policy, room service/diet and guest tray routines, infant security routines, and visiting hours. Patient/Family are encouraged to report perceived risks to care and to ask questions if they do not understand what they are told or what they should do. See OBIX for further documentation.
[2024-08-17 15:52] LABS: Basophils Percent Auto 0.3 % (0.2-1.2); Eosinophils Absolute Auto 0.1 K/mm3 (0-0.3); Eosinophils Percent Auto 0.7 % (0-4.4); Hematocrit 32.3 % (37.0-47.0); Hemoglobin 10.2 g/dL (12.0-15.0); Immature Granulocyte Absolute 0.06 K/mm3 (0.00-0.031); Immature Granulocyte Percent A 0.7 % (0-0.5); Lymphocytes Absolute Auto 1.16 K/mm3 (0.9-3.2); Mean Corpuscular HGB Conc 31.6 g/dl (32-36); Mean Corpuscular Hemoglobin 26.4 pg (26-34); Mean Corpuscular Volume 83.7 fl (80-100); Mean Platelet Volume 9.1 fl (7.4-10.4); Monocytes Absolute Auto 0.5 K/mm3 (0.1-0.6); Neutrophils Absolute Auto 7.1 K/mm3 (1.3-6.7); Neutrophils Percent Auto 79.3 % (45.5-73.1); Platelet Count Result 218 k/mm3 (150-375); Red Blood Count 3.86 M/mm3 (4.2-5.4); Red Cell Distribution Width 15.3 % (11.5-14.5); White Blood Count 8.9 K/mm3 (4.5-10.0)
--- NOTE | 2024-08-17 15:58 | PM.IMHP ---
H&P: HPI History of Present Illness Date/Time: 08/17/24 15:58 Chief Complaint: pt c/o contractions. little cervical change noted, but on FHR 5 minute deceleration, corrected with position changes. BPP 04/01 Review of Systems Review of Systems: All systems reviewed & are unremarkable except as noted in HPI and below PMFSH Past Medical History Medical History ADD (attention deficit disorder) Anxiety and depression Asthma Migraine Migraine Scoliosis Family History Family History Mother Hypertension Bipolar 1 disorder Grandparent High cholesterol Bipolar 1 disorder Father Bipolar 1 disorder Social History Social History Smoking status: Current some day smoker Tobacco type: e-cigarettes/vaping Additional smoking assessment comments: pt states she vapes 3-4 times a day Substance use: current Do You Feel Safe in your Home?: Yes Lack of Transportation: No Lack of Food: Never True Current Housing: I Have Housing Concerned About Future Housing: No Difficulty Paying Gas/Electric Bills: No Difficulty Paying for Meds: No Currently Unemployed: No Education: High School Diploma/GED Difficulty w/ Childcare or Family Care: No Gender identity (if verbalized by the patient): Female Spiritual care concerns: No Meds Home Medications and Allergies Home Medications ?Medication ?Instructions ?Recorded ?Confirmed ?Type Vitamin 1 tablet PO DAILY 09/21/22 08/14/24 History ferrous sulfate 325 mg (65 mg 325 mg PO DAILY 08/05/24 08/14/24 History iron) tablet Allergies Allergy/AdvReac Type Severity Reaction Status Date / Time No Known Allergies Allergy Mild Verified 08/14/24 13:16 Vital Signs Vital Signs - 24 hr 08/17/24 14:44 08/17/24 15:09 08/17/24 15:14 Pulse Rate 73 96 77 Blood Pressure 105/66 131/79 113/70 08/17/24 15:29 08/17/24 15:44 Pulse Rate 76 76 Blood Pressure 112/78 107/76 Exam Const: General: cooperative and healthy appearing Chest: Chest palpation & inspection: normal inspection of the chest Cardio: Rate: regular rate GI: Other: gravid/soft Back/Spine/Pelvis: Back: no CVA tenderness Skin: General skin exam: normal color H&P: Results Labs Labs: Short CBC 08/17/ Range/Units 15:31 WBC 8.9 (4.5-10.0) K/mm3 Hgb 10.2 L (12.0-15.0) g/dL Hct 32.3 L (37.0-47.0) % Plt Count 218 (150-375) k/mm3 Assessment and Plan Assessment and plan (1) Non-reassuring heart tones complicating , antepartum: Code(s): O36.8390 - Maternal care for abnormalities of the heart rate or rhythm, unspecified trimester, not applicable or unspecified Status: Acute Plan non reassuring heart tracing discussed with dr. johnson, proceed with delivery
--- NOTE | 2024-08-17 16:09 | PM.OBPNLAB ---
Pain Control Date/time seen: 08/17/24 16:09 Comments: SVE 3-4/80/-2, AROM moderate amount of clear, odorless fluid, anticipate vaginal delivery
[2024-08-17 16:28] LABS: Rapid Plasma Reagin Non-Reactive (NonReactive)
[2024-08-17 16:41] LABS: HIV 1/2 Ab P24 Ag Result Negative (Negative)
[2024-08-17] MEDS: LACTATED RINGERS 1,000 ML 125 ML IV CONT ×2 (19:09→21:02)
[2024-08-17] MEDS: OXYTOCIN 30 UNITS/NS 500 ML 30 UNITS/500 ML BAG IV CONT (19:10)
--- NOTE | 2024-08-17 20:03 | WPDANESEPP ---
Anes - Eval Pre Procedure Procedure: labor epidural Date/Time: 08/17/24 20:03 Surgeon: elizabeth Preop Diagnosis: pain during labor Pre Op Diagnosis: Contractions Patient Data Age: 24 Gender: F Height: 1.55 m Weight: 54 kg Last Vital Signs Temp 37.2 C 08/17/24 17:38 Pulse 86 08/17/24 20:00 BP 92/60 L 08/17/24 20:00 Allergies Allergy/AdvReac Type Severity Reaction Status Date / Time No Known Allergies Allergy Mild Verified 08/14/24 13:16 Home Medications ?Medication ?Instructions ?Recorded ?Confirmed ?Type Vitamin 1 tablet PO DAILY 09/21/22 08/14/24 History ferrous sulfate 325 mg (65 mg 325 mg PO DAILY 08/05/24 08/14/24 History iron) tablet Laboratory Tests 08/17/24 15:31 WBC 8.9 K/mm3 (4.5-10.0) RBC 3.86 L M/mm3 (4.2-5.4) Hgb 10.2 L g/dL (12.0-15.0) Hct 32.3 L % (37.0-47.0) MCV 83.7 fl (80-100) MCH 26.4 pg (26-34) MCHC 31.6 L g/dl (32-36) RDW 15.3 H % (11.5-14.5) Plt Count 218 k/mm3 (150-375) MPV 9.1 fl (7.4-10.4) Immature Gran % (Auto) 0.7 H % (0-0.5) Neut % (Auto) 79.3 H % (45.5-73.1) Lymph % (Auto) 13.0 L % (18.3-44.2) [place] % (Auto) 6.0 % (2.6-8.5) Eos % (Auto) 0.7 % (0-4.4) Baso % (Auto) 0.3 % (0.2-1.2) Lymph # (Auto) 1.16 K/mm3 (0.9-3.2) [place] # (Auto) 0.5 K/mm3 (0.1-0.6) Eos # (Auto) 0.1 K/mm3 (0-0.3) Baso # (Auto) 0.0 K/mm3 (0.0-0.1) Abs Immat Gran (auto) 0.06 H K/mm3 (0.00-0.031) Absolute Neuts (auto) 7.1 H K/mm3 (1.3-6.7) Absolute Nucleated RBC 0.000 K/mm3 (0.0-0.012) Nucleated RBC % 0.0 % (0.0-0.2) RPR Non-reactive (NonReactive) HIV 1&2 Ab/P24 Ag 4thGn Negative (Negative) Blood Type O Positive Antibody Screen Negative Patient hx anesthesia problems: none Family hx anesthesia problems: none Results Review: All pre-operative results and documents have been reviewed as part of the pre-operative evaluation. [facility] Past Medical History Medical History (Updated 08/17/24 @ 20:04 by Amanda Bean CRNA) Multiple sclerosis ADD (attention deficit disorder) Scoliosis Asthma Anxiety and depression Migraine Migraine Family History Family History Mother Hypertension Bipolar 1 disorder Grandparent High cholesterol Bipolar 1 disorder Father Bipolar 1 disorder Social History Social History Smoking status: Current some day smoker Tobacco type: e-cigarettes/vaping Additional smoking assessment comments: pt states she vapes 3-4 times a day Substance use: current Do You Feel Safe in your Home?: Yes Lack of Transportation: No Lack of Food: Never True Current Housing: I Have Housing Concerned About Future Housing: No Difficulty Paying Gas/Electric Bills: No Difficulty Paying for Meds: No Currently Unemployed: No Education: High School Diploma/GED Difficulty w/ Childcare or Family Care: No Gender identity (if verbalized by the patient): Female Spiritual care concerns: No Exam Day of Procedure 08/17/24 20:03
[2024-08-17] MEDS: SODIUM CHLORIDE 0.9% IV 300 ML 600 ML I-UTERINE (21:15)
--- NOTE | 2024-08-17 21:57 | PM.OBPRVD ---
OB - Vaginal Delivery Note Procedure Delivery date: 08/17/24 Intrapartal Events: Decelerations Induction method: AROM and Per Pitocin Protocol Delivery monitor: External FHT and Internal Uterine Route of delivery: Episiotomy description: None Laceration Description: None Specimen: Yes Quantitative Blood Loss (ml): 60 Anesthesia type: Epidural Disposition: Floor Complications: No immediate complications [place] Baby Date of : 08/17/24 Time of : 21:42 Gestational Age by Date: 36 Infant gender: Female Weight (pounds): 6 Weight (ounces): 9 presentation: vertex position: Left Occiput Anterior Placenta delivery description: Spontaneous Cord Vessel Description: 3 Vessels, Nuchal Cord (x1), Clamped/Cut and Delayed Cord Clamping score one minute: 8 score five minutes: 8
[2024-08-17] MEDS: OXYTOCIN 30 UNITS/NS 500 ML 30 UNITS/500 ML BAG 125 UNITS IV CONT (22:19)
[2024-08-17] MEDS: BENZOCAINE 20% AER SPR (*SP) 56 GM CAN 1 SPRAY TOPICAL (22:19)
[2024-08-17] MEDS: WITCH HAZEL 40 PADS 1 PAD TOPICAL (22:19)
--- NOTE | 2024-08-18 00:10 | PC.NURSE ---
Patient transferred to post room #[id number] via ( W/C ). Support person present. Oriented to unit, room, information board, rooming in, admission packet and security measures. Patient verbalizes understanding.
[2024-08-18 01:04] VITALS: BP 124/80; PULSE 57; RESP 18; TEMP 36.7; O2SAT 100
[2024-08-18] MEDS: IBUPROFEN 600 MG TABLET PO ×3 (03:08→19:58)
[2024-08-18 05:20] VITALS: BP 115/78; PULSE 48; RESP 16; TEMP 36.6; O2SAT 99
[2024-08-18 06:05] LABS: Hematocrit 30.2 % (37.0-47.0); Hemoglobin 9.5 g/dL (12.0-15.0)
--- NOTE | 2024-08-18 06:12 | P.PNOB_ITS ---
OB - PN: Subj Subjective Date/time seen: 08/18/24 06:12 Interval history: pp day 1 doing well no complaints OB - PN: Obj Data Labs 08/17/24 15:31 Labs: Laboratory Results - last 24 hr 08/17/24 15:31 WBC 8.9 RBC 3.86 L Hgb 10.2 L Hct 32.3 L MCV 83.7 MCH 26.4 MCHC 31.6 L RDW 15.3 H Plt Count 218 MPV 9.1 Immature Gran % (Auto) 0.7 H Neut % (Auto) 79.3 H Lymph % (Auto) 13.0 L [place] % (Auto) 6.0 Eos % (Auto) 0.7 Baso % (Auto) 0.3 Lymph # (Auto) 1.16 [place] # (Auto) 0.5 Eos # (Auto) 0.1 Baso # (Auto) 0.0 Abs Immat Gran (auto) 0.06 H Absolute Neuts (auto) 7.1 H Absolute Nucleated RBC 0.000 Nucleated RBC % 0.0 RPR Non-reactive HIV 1&2 Ab/P24 Ag 4thGn Negative Blood Type O Positive Antibody Screen Negative Imaging Radiologist's impression: Impressions Obstetrics US/Biophysical Profile 08/17/24 15:17 IMPRESSION: 1. Single intrauterine gestation in vertex presentation. 2: Total biophysical profile score of 8 out of 8. The cervix is not visualized on the submitted images. Repeat examination may be performed if clinically needed. OB - PN A/P Plan day: 1 Plan: routine care Time Spent With Patient Time: Total time spent is greater than 50% in coordination of care (as documented) at patient's floor/unit and/or counseling patient: Exam 2 Const: General: cooperative, healthy appearing and comfortable Chest: Chest palpation & inspection: normal inspection of the chest Resp: Effort & Inspection: normal respiratory effort Cardio: Rate: regular rate GI: Other: incision CDI
[2024-08-18 07:00] VITALS: BP 107/69; PULSE 51; RESP 16; TEMP 36.6; O2SAT 98
[2024-08-18 08:00] VITALS: PULSE 51; RESP 16; O2SAT 98
--- NOTE | 2024-08-18 08:28 | WPDANLDPN2 ---
Anes-Prog Note L&D Date/Time: 08/18/24 08:28 Comfortable throughout: labor and delivery Neuraxial method: epidural Epidural/Spinal procedure site: clean & non-tender Neuro status: Neuro function grossly intact. Cardiovascular status: normal Respiratory status: normal Airway patency: baseline Mental status: baseline Post-Op hydration status: normal Vital Signs: Last Vital Signs Temp 36.6 C 08/18/24 05:20 Pulse 48 L 08/18/24 05:20 Resp 16 08/18/24 05:20 BP 115/78 08/18/24 05:20 Pulse Ox 99 08/18/24 05:20 O2 Del Method Room Air 08/18/24 01:04 Pain score (VAS): 0/10 I/O: Intake & Output 08/17/24 08/18/24 08/18/24 23:59 07:59 15:59 Intake Total 1000 Output Total 165 Balance 835 Post-procedural complaints: none Patient feedback: Patient satisfied with anesthetic care.
[2024-08-18] MEDS: DOCUSATE SODIUM 100 MG CAPSULE PO ×2 (09:39→16:11)
[2024-08-18] MEDS: MULTIVIT/MIN/PREN/FOL AC/IRON TABLET 1 TAB PO (09:39)
[2024-08-18] MEDS: POLYSACCHARIDE IRON COMPLEX 150 MG CAPSULE PO ×2 (09:39→16:11)
[2024-08-18 19:50] VITALS: PULSE 65; O2SAT 100
[2024-08-18 19:51] VITALS: BP 103/65; PULSE 61; RESP 18; TEMP 36.9; O2SAT 100
[2024-08-19 04:55] VITALS: BP 100/63; PULSE 56; PULSE 60; RESP 18; TEMP 36.4; O2SAT 99
[2024-08-19 07:10] VITALS: BP 98/58; PULSE 60; RESP 16; TEMP 36.4; O2SAT 100
[2024-08-19 07:17] VITALS: PULSE 58; O2SAT 100
[2024-08-19 07:18] VITALS: BP 98/58; PULSE 54
--- NOTE | 2024-08-19 08:24 | P.DS_ITS ---
DS: Admitting Diagnosis Discharge Date 08/19/2024 Admitting Diagnosis term DS: Discharge Diagnosis Discharge Diagnosis (1) Term delivered: Code(s): O80 - Encounter for full-term uncomplicated delivery Status: Acute OB - DS: Summary OB Procedures : None OB Procedures Intrapartum: Spontaneous Vag Delivery OB Procedures: : None Peripartum Data Laceration Description: None Episiotomy description: None Time Spent with Patient Time attestation: Total time spent providing and/or coordinating discharge services: Discharge Plan Discharge Discharging Clinician: Jin Nichole Patient Disposition: Home, Self-Care Activity: pelvic rest Diet: regular Patient Instructions: Antibiotic Form Patient Language: Irish Stand Alone Forms: General Discharge Information Follow-up/Referrals: Jin Nichole MD [Physician] - Discharge Medications: Continued Vitamin 1 tablet PO DAILY ferrous sulfate 325 mg (65 mg iron) tablet 325 mg PO DAILY Date of admission: 08/17/24 15:06 Primary Care Provider: PHYSICIAN,LATHE SCALPER OPERATOR Admitting Provider: Jin Nichole Attending physician on admission: Jin Nichole Condition: Stable
--- NOTE | 2024-08-19 08:24 | P.PNOB_ITS ---
OB - PN: Subj Subjective Date/time seen: 08/19/24 08:24 Interval history: pp day 1 doing well no complaints Patient comments: no complaints, pain well controlled and tolerating diet OB - PN: Obj Data Labs 08/18/24 05:35 OB - PN A/P Plan day: 2 Plan: routine care and discharge home Time Spent With Patient Time: Total time spent is greater than 50% in coordination of care (as documented) at patient's floor/unit and/or counseling patient: Exam 2 Const: General: comfortable and no acute distress Resp: Effort & Inspection: normal respiratory effort Auscultation: no rales, no rhonchi and no wheezes Cardio: Rate: regular rate Heart sounds: no click, no murmurs and no rubs GI: GI Palp: Yes Soft to palpation and No Tenderness to palpation present (GI) Auscultation: normal bowel sounds Extrem: General: normal to inspection, no pedal edema and no calf tenderness
[2024-08-19] MEDS: TETANUS,DIPHTHERIA,AC PERTUSSIS ADULT (0.5 ML) BOOSTRIX IM (08:54)
[2024-08-19] MEDS: MULTIVIT/MIN/PREN/FOL AC/IRON TABLET 1 TAB PO (08:55)
[2024-08-19] MEDS: POLYSACCHARIDE IRON COMPLEX 150 MG CAPSULE PO (08:55)
[2024-08-19] MEDS: DOCUSATE SODIUM 100 MG CAPSULE PO (08:55)
== END 2024-08-19 11:00 | disposition home or self-care (01) | DRG 560 ==
LOC: ANHLDR 23:17 → ANHOB2 08-18 00:19 → ANHOBPP 08-18 16:17
PROVIDERS: Advanced Practice Midwife; Admitting Provider Obstetrics & Gynecology; Visit Provider Obstetrics & Gynecology
DX: O36.8330 Maternal care for abnormalities of the fetal heart rate or rhythm, third trimester, not applicable or unspecified (principal); O60.14X0 Preterm labor third trimester with preterm delivery third trimester, not applicable or unspecified; Z37.0 Single live birth; Z3A.36 36 weeks gestation of pregnancy; O69.81X0 Labor and delivery complicated by cord around neck, without compression, not applicable or unspecified
CPT/HCPCS: 36415; 76819; 85014; 85018; 85025; 86592; 86703; 86850; 86900; 86901; 88307; 90715; A9270; G0378; G0379; G0432; J2590; J2795; J7030; J7120

== ENCOUNTER 2024-12-06 11:38 | Emergency (ER) | payer OTHER, SELFPAY ==
--- NOTE | ~2024-12-06 | XR_ITS ---
EXAMINATION: XR ribs BI 3V w CXR 2V DATE: 12/06/2024 13:02 INDICATION: Bilateral rib pain TECHNIQUE: A frontal inspiratory view of the chest and 3 views of the right ribs and 3 views of the l eft ribs ribs were obtained. COMPARISON: Chest radiograph dated 06/12/2021 FINDINGS: No rib fractures identified. 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 No new airspace opacities, pulmonary edema, pleural effusion or pneumothorax. Cardiomedias tinal silhouette is normal. IMPRESSION: 1. No rib fracture or acute cardiopulmonary disease. Reviewed, dictated and finalized at location A.
[2024-12-06 11:42] VITALS: BP 110/86; PULSE 89; RESP 16; O2SAT 100
--- OUTSIDE RECORDS SUMMARY | 2024-12-06 13:13 | XMS_ITS | Clinical Summary ---
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 Name Role Phone Unavailable Primary Care Provider Unavailabl e Social History Tobacco Use Types Packs/Day Years Used Date Smoking Tobacco: Never Assessed Comments Unknown Sex and Gender Information Value Date Recorded Sex Assigned at Not on file Legal Sex Female 7:21 PM CDT Gender Identity Not on file Sexual Orientation Not on file Plan of Treatment Health Maintenance Due Date Last Done Comments Cervical Cancer Screening Pa p Smear (Age 21 to 29) Every 3 Years 2002 Cervical Cancer Screening 2002 Annual Physical 2005 HPV Vaccines (1 - 3-dose series) 2017 Meningococcal B Vaccine (1 o f 2 - Standard) 2018 Hepatitis C 02/19/2020 DTaP, Tdap and Td Vaccines ( 1 - Tdap) 2021 Hepatitis B Vaccines (1 of 3 - 19+ 3-dose series) 2021 COVID-19 Vaccine (1 - 2023-2 5 season) 2024 Meningococcal Vaccine Aged Out No ellie marcelo eligible based on patient's age to complete this topic Pneumococcal Vaccine: Pediat rics (0 to 5 Years) and At-Risk Patients (6 to 49 Years) Aged Out No longer eligible b ased on patient's age to complete this topic RSV Immunizations Under 20 Months Aged Out No longer eligible based on patient's age to complete this topic
--- OUTSIDE RECORDS SUMMARY | 2024-12-06 13:13 | XMS_ITS | Clinical Summary ---
Author Organization [facility] Address [address] [place] [address] Care Team Providers Care Live In Companion Name Role Phone Darcie English PA-C Primary Care Provider + Source Comments [facility],non-owned Affiliates and Associated Physician Practices is amultiple site organization consisting of ambulatory clinics and hospital sitesin [place], [place], [place] and [place]. This disclosure is being madepursuant to the Care Everywhere program and may not contain all information available regarding this patient. Last updated 18.[facility] Allergies No known active allergies Medications * Be aware that medications may not be up to date on this document. Alwaysverify current medications with the patient. PROAIR HFA 108 (90 BASE) MCG/ACT inhaler INHALE 4 PUFFS PO PRN UTD 0 8 Active QVAR REDIHALER 80 MCG/ACT inhaler USE 2 PUFFS PO BID. 3 8 Active montelukast (SINGULAIR) 10 MG tablet TK 1 T PO QD HS 3 8 Active XULANE 150-35 MCG/24HR patch APPLY 1 PATCH TO SKIN WEEKLY 12 8 Active SUMAtriptan (IMITREX) 25 MG tablet Take 1 tablet by mouth daily as needed - may repeat one time for Migraine (Take around beginning of migraine with naproxen) 9 tablet 5 9 Active cyproheptadine (PERIACTIN) 4 MG tablet Take 2 tabs at bedtime. 60 tablet 4 9 Active sertraline (ZOLOFT) 100 MG tablet Take 100 mg by mouth at bedtime Active risperiDONE (RISPERDAL) 0.5 MG tablet Take 0.5 mg by mouth 2 times daily Active Active Problems Problem Noted Date Diagnosed Date Migraine 02/17/2018 Midline thoracic back pain 08/07/2015 Adolescent idiopathic scoliosis of thoracolumbar region 08/07/2015 Chronic midline thoracic back pain Social History Tobacco Use Types Packs/Day Years Used Date Smoking Tobacco: Passive Smo ke Exposure - Never Smoker Smokeless Tobacco: Never Alcohol Use Standard Drinks/Week Comments No 0 (1 standard drink = 0.6 oz pur e alcohol) Comments No Sex and Gender Information Value Date Recorded Sex Assigned at Not on file 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 Gender Identity Not on file Sexual Orientation Not on file Last Filed Vital Signs Vital Sign Reading Time Taken Comments Blood Pressure 110/62 11/08/2022 2:04 PM CDT Pulse 66 11/08/2022 2:04 PM CDT Temperature 36.7 C (98 F) 04/27/2019 12:55 PM CDT Respiratory Rate 16 04/27/2019 12:55 PM CDT Oxygen Saturation 99% 04/27/2019 11:59 AM CDT Inhaled Oxygen Concentration - - Weight 54.1 kg (119 lb 4.3 oz) 04/27/2019 11:59 AM CDT Height 153.5 cm (5' 0.43 ) 04/27/2019 11:59 AM C DT Body Mass Index 22.96 04/27/2019 11:59 AM CDT Plan of Treatment Health Maintenance Due Date Last Done Comments PAP SMEAR 2002 HPV VACCINE (1 - 3-dose series) 2017 CHLAMYDIA/GONORRHEA SCREENING 2018 MENINGOCOCCAL (Group B) VACCINE SHARED DECISION-MAKING (1 of 2 - Standard) 2018 HEPATITIS C SCREENING 02/14/2020 DTAP/TDAP/TD VACCINES (1 - Tdap) 2021 HEPATITIS B VACCINE (1 of 3 - 19+ 3-dose series) 2021 COVID-19 VACCINE (1 - 2023- season) 2024 DEPRESSION SCREENING 08/25/2024 INFLUENZA VACCINE (Season Ended) 2025 08/19/2017, 07/27/2015, 10/05/2013, Additional history exists ZOSTER VACCINE (1 of 2) 02/19/2052 HIV SCREENING Completed 09/24/2022 HIB VACCINE Aged Out No longer eligi ble based on patient's age to complete this topic MENINGOCOCCAL GROUPS A/C/Y/W VACCINE Aged Out No longer eligible based on patient's age to complete this topic PNEUMOCOCCAL VACCINE Aged Out No long er eligible based on patient's age to complete this topic Insurance [facility] SELF PAY NO INSURANCE Member Subscriber Plan / Payer (Ef fective for All Dates) Name:Geovanny Goodman Member ID:Not on file Relation to Subscriber:Not on file Name:GEOVANNY GOODMAN Subscriber ID:Not on file (Home) Address: [address] [place] [place] [address] Payer ID:Not on file Group ID:Not on file Type:Self Pay Address: [place], [place] [facility] [place]ICAID - [place] [facility] Care Teams Live In Companion Relationship Specialty Start Date End Date Darcie English PA-C [address] [place] [address] PCP - General 12/24/22
--- OUTSIDE RECORDS SUMMARY | 2024-12-06 13:13 | XMS_ITS | Patient Health Record ---
Author Organization 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 Name Role Phone Asif Felderdana Primary Care Provider Reason For Referral No Information Medications Medication SIG (Take, Route, Frequency, Duration) Notes Start Date End Date Status hydrOXYzine HCl 10 MG daily Orally 8 -10 hourly for 30 days 12/12/2014 Active traZODone HCl 50 MG take 1/2-1 Tablet by Oral route once bedtime Oral ([facility]) 03/22/2014 Not-Taking LaMICtal 25 MG 2 tabs daily Oral ([facility]) 03/22/2014 Not-Taking Amoxicillin 500 MG 1 tablet Orally ever y 8 hrs for 7 day(s) Not-Taking Triamcinolone Acetonide 0.1 % 1 application to affected area Externally Twice a day for 10 days 11/16/2014 Not-Taking Immunizations Vaccine Route Administration Date Status Comme nts Hep A ped/adol 3 dose Unknown 04/09/2006 Administered S tatus:Completed Influenza (split) 3 yrs and above Unknown 05/03/2011 Administered Status:Completed Non VFC Engerix B-Peds Unknown 2002 Administered Status:Completed Non VFC Engerix B-Peds Unknown 2002 Administered Status:Completed Non VFC Engerix B-Peds Unknown 05/23/2003 Administered Status:Completed Non-VFC MMR II Unknown 02/21/2003 Administered Status:C ompleted Non-VFC MMR II Unknown 04/09/2006 Administered Status:C ompleted VFC Boostrix Unknown 03/31/2013 Administered Status:Com pleted VFC Cervarix Unknown 10/05/2013 Administered VFC Daptacel Unknown 2002 Administered Status:Com pleted VFC Daptacel Unknown 2002 Administered Status:Com pleted VFC Daptacel Unknown 2002 Administered Status:Com pleted VFC Daptacel Unknown 05/23/2003 Administered Status:Com pleted VFC Daptacel Unknown 04/09/2006 Administered Status:Com pleted VFC Fluarix Quad Unknown 10/05/2013 Administered VFC Gardasil Unknown 03/31/2013 Administered Status:Com pleted VFC Gardasil Unknown 06/03/2013 Administered Status:Com pleted VFC IPV Unknown 2002 Administered Status:Compl eted VFC IPV Unknown 2002 Administered Status:Compl eted VFC IPV Unknown 2002 Administered Status:Compl eted VFC IPV Unknown 04/09/2006 Administered Status:Compl eted VFC Prevnar 13 Unknown 2002 Administered Status:C ompleted VFC Prevnar 13 Unknown 2002 Administered Status:C ompleted VFC Prevnar 13 Unknown 02/21/2003 Administered Status:C ompleted VFC Prevnar 13 Unknown 04/09/2006 Administered VFC Varivax Unknown 02/21/2003 Administered Status:Comp leted VFC Varivax Unknown 04/09/2006 Administered Status:Comp leted X Hiberix Unknown 2002 Administered Status:Compl eted X Hiberix Unknown 2002 Administered Status:Compl eted X Hiberix Unknown 2002 Administered Status:Compl eted X Hiberix Unknown 05/23/2003 Administered Status:Compl eted Problems Problem Type SNOMED Code ICD Code Onset Dates Problem Status W/U Status Risk Notes Problem Episodic mood disorder (37191770550101) Other specified episodic mood disorder (296.99) 10/05/19 14 Active confirmed ([facility] ) Added By: Una Honeycutt Problem Attention deficit hyperactivity disorder (889020684) 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) 10/05/19 14 Active confirmed ([facility] ) Added By: Una Honeycutt Plan Of Treatment No Information Insurance Providers Payer Name Payer Address Payer Phone Subscriber Number Group Number Insured Name Patient Relationship to Insured Coverage Start Date Coverage End Date Medicaid [employer] [address] [place], [place] [id number] Anu Moss Self - patient is the insured 5 Medicaid Nonbillable [address], [place] [id number] Yuliya Macias Parent 3 Medical (General) History Medical History History ICD Code Med_System: Psychiatric; Disease: ADD/AD HD Surgical History Surgery Date(Month/Year) PET placement 2001 Hospitalization History Reason Date(Month/Year)
--- NOTE | 2024-12-06 13:41 | ED_ITS ---
HPI - General Adult General Chief complaint: Unspecified Stated complaint: lower chest pain with movement/breathing Time Seen by Provider: 12/06/24 12:40 Source: patient Mode of arrival: ambulatory Limitations: no limitations History of Present Illness HPI narrative: Patient is a 24-year-old female who presents the ED with report of bilateral rib pain. Patient reports she went to lift up her child while sitting on the couch last night when she developed sharp pain in her lower rib cage divya. States pain continued into this morning. She tried taking tylenol w/o improvement. Then prompted here for further evaluation. States pain is worse with movement, twisting, deep breathing. Denies feeling short of breath. Denies recent cough, congestion, fevers, hx of blood clots, pain or swelling in legs. Related Data Home Medications ?Medication ?Instructions ?Recorded ?Confirmed ?Last Taken ?Type Vitamin 1 tablet PO DAILY 09/21/22 08/14/24 08/14/24 History ferrous sulfate 325 mg (65 mg 325 mg PO DAILY 08/05/24 08/14/24 08/14/24 History iron) tablet Allergies Allergy/AdvReac Type Severity Reaction Status Date / Time No Known Allergies Allergy Mild Verified 12/06/24 11:45 Review of Systems Review of Systems: All systems reviewed & are unremarkable except as noted in HPI. All systems reviewed & are unremarkable except as noted in HPI and below PMFSH Past Medical History Medical History Multiple sclerosis (Unknown) ADD (attention deficit disorder) Scoliosis Asthma Anxiety and depression Migraine Migraine Family History Family History Mother Hypertension Bipolar 1 disorder Grandparent High cholesterol Bipolar 1 disorder Father Bipolar 1 disorder Social History Social History Smoking status: Current some day smoker Tobacco type: e-cigarettes/vaping Additional smoking assessment comments: pt states she vapes 3-4 times a day Substance use: current Do You Feel Safe in your Home?: Yes Lack of Transportation: No Lack of Food: Never True Current Housing: I Have Housing Concerned About Future Housing: No Difficulty Paying Gas/Electric Bills: No Difficulty Paying for Meds: No Currently Unemployed: No Education: High School Diploma/GED Difficulty w/ Childcare or Family Care: No Gender identity (if verbalized by the patient): Female Spiritual care concerns: No Exam Narrative: GENERAL: Well appearing, thin, non-toxic, in no acute distress. HEAD: Normocephalic, atraumatic. RESPIRATORY: Airway patent, respirations nonlabored. Clear to auscultation bilaterally, no rales, rhonchi, wheezing. Equal lung sounds divya CARDIOVASCULAR: Regular rate and rhythm ABDOMINAL: Soft, no tenderness throughout upper abdomen, nondistended. Normoactive BS. MUSCULOSKELETAL: Moves all extremities. No gross deformities. TTP over sternum, costochondral regions, and divya inferior rib cage, worse on L side, reproducing pain. SKIN: Warm, dry, normal color. NEURO: A&O X3. Speech clear. PSYCHIATRIC: Appropriate mood and affect. Normal interaction. Course Vital Signs Vital signs: Vital Signs Pulse Rate 89 12/06/24 11:42 Respiratory Rate 16 12/06/24 11:42 Blood Pressure 110/86 12/06/24 11:42 Pulse Oximetry 100 12/06/24 11:42 Oxygen Delivery Room Air 12/06/24 11:42 Pulse Rate 89 12/06/24 11:42 Respiratory Rate 16 12/06/24 11:42 Blood Pressure 110/86 12/06/24 11:42 Pulse Oximetry 100 12/06/24 11:42 Oxygen Delivery Room Air 12/06/24 11:42 Medical Decision Making MDM Narrative Medical decision making narrative: Exam consistent with costochondritis. X-ray of bilateral ribs/chest negative. Low suspicion for ACS. Patient denying pain at rest. Low suspicion for PE. Patient PERC negative. No evidence of DVT on exam. Patient advised on management of costochondritis, discussed close follow-up with PCP for further evaluation, given strict return precautions. She agrees with plan. Discharged in stable condition. Medical Records Medical records reviewed: Yes I reviewed the external patient's medical records. Vital Signs Vital Signs: Vital Signs Pulse Rate 89 12/06/24 11:42 Respiratory Rate 16 12/06/24 11:42 Blood Pressure 110/86 12/06/24 11:42 Pulse Oximetry 100 12/06/24 11:42 Oxygen Delivery Room Air 12/06/24 11:42 Pulse Rate 89 12/06/24 11:42 Respiratory Rate 16 12/06/24 11:42 Blood Pressure 110/86 12/06/24 11:42 Pulse Oximetry 100 12/06/24 11:42 Oxygen Delivery Room Air 12/06/24 11:42 Imaging Data Attestation: I personally reviewed and interpreted this imaging study as follows: Radiologist's impression: ITS Impressions Ribs w/Chest X-Ray 12/06/24 13:06 IMPRESSION: 1. No rib fracture or acute cardiopulmonary disease. Discharge Plan Discharge Clinical Impression: Costochondritis Patient Disposition: Home Condition: Stable Instructions: Antibiotic Form, Pleurisy (ED), Costochondritis (ED), Chest Wall Pain (ED) Additional Instructions: Your chest x-ray here did not show any abnormalities. Your pain is likely related to costochondritis. Continue Tylenol, ibuprofen, ice as needed. You may utilize lidocaine patches, topical diclofenac to areas of pain. Follow-up with your primary care doctor for further evaluation as needed. Return to the ED if you experience worsening or severe pain, difficulty breathing, unable to keep down food or drink, fevers, or any other symptoms of concern. Patient Language: [place] Prescriptions: New lidocaine 5 % adhesive patch,medicated 1 patch topical DAILY Qty: 15 0RF Rx Instructions: leave on most painful area for up to 12 hrs diclofenac sodium 1 % gel 2 g topical QID PRN (Reason: chest wall pain) Qty: 100 0RF Rx Instructions: apply to single elbow, wrist or hand; for hand includes palm/fingers/back of hand No Action Vitamin 1 tablet PO DAILY ferrous sulfate 325 mg (65 mg iron) tablet 325 mg PO DAILY Follow-up/Referrals: UNKNOWN,DOCTOR [Primary Care Provider] - Time of Disposition: 13:49
--- OUTSIDE RECORDS SUMMARY | 2024-12-06 14:33 | XMS_ITS | Data Portability ---
Author Organization [facility] Address [address] [place] [address] [place] [address] Care Team Providers Care Validation Leader Name Role Phone DAX RAWLS Primary Care Provider Assessment Encounter Date Assessment Date Assessment LastModified by Organization Details LastModified Time 10/01/2024 10/01/2024 mati well f/u one month iud check Not available 10/01/2024 10:21:13 Plan of Treatment Reminders Order Date Submit Date Provider Last Modified By Organization Details Last Modified Time Details Appointments CONSULTAT ION 2024 10:30A Mihaela NICHOLE MD Not available Not available Not available Lab test, urine 2024 025 [email or web address] [facility], [address], [place], [address], 10/01/2024 09:59:19 Referral None recorded. Procedures None recorded. Surgeries None recorded. Imaging US, transvagi nal 2024 025 [email or web address] [facility] [facility], [address], [place], [address], 10/28/2024 20:26:16 Medication Orders Depo-Prov era 150 mg/mL intramusc ular syringe 2024 025 [email or web address] Not available 10/29/2024 17:34:13 Mirena 21 mcg/24 hr (up to 8 years) 52 mg intrauter ine device 2024 025 [email or web address] Not available 10/29/2024 17:52:09 Mirena 21 mcg/24 hr (up to 8 years) 52 mg intrauter ine device 2024 025 [email or web address] [id number], [address], [place], [place], [id number], 10/29/2024 16:38:10 Patient TargetsNo targets recorded. Patient InstructionsNo instructions recorded. Reason for Referral None Reported. Results Created Date Observation Date Name Description Value Unit Range Abnormal Flag Note LastModifiedBy Organization Detail LastModifiedTime 10/01/1910/01/2024 CT/GC AND TRICH OMONA S VAGIN ADORE (RRNA ), URINE chlamydia trachomatis, PCR Negati ve negati ve Not Available [facility] (Lab) [address], [place], [address], 10/02/2024 12:04:22 10/01/19 25 10/01/2024 CT/GC AND TRICH OMONA S VAGIN ADORE (RRNA ), URINE neisseria gonorrhoeae, PCR Negati ve negati ve Not Available [facility] (Lab) [address] [facility], [place], [address], 10/02/2024 12:04:22 10/01/19 25 10/01/2024 CT/GC AND TRICH OMONA S VAGIN ADORE (RRNA ), URINE trichomonas vaginalis ribosomal RNA (rrna) Negati ve negati ve Not Available [facility] (Lab) [address] [facility], [place], [address], 10/02/2024 12:04:22 10/01/19 25 10/01/2024 pregn meliton test, urine HCG negati ve Not Available [facility] [address], [place], [address], 10/01/2024 09:57:39 08/17/20 24 08/17/2024 US, obste tric, bioph ysica l profi le No observ ation record ed. [address], [place], [address], 08/19/2024 11:25:39 08/17/20 24 08/17/2024 US, obste tric, bioph ysica l profi le No observ ation record ed. [address], [place], [address], 08/19/2024 11:25:21 10/29/19 25 10/28/2024 US, trans vagin al No observ ation record ed. [email or web address] [facility] [address], [place], [address], 10/28/2024 15:31:04 10/29/19 25 10/28/2024 US, trans vagin al No observ ation record ed. [email or web address] [address], [place], [address], 10/28/2024 20:13:15 Result Notes None recorded. Problems Name Problem SNOMED Code Status Onset Date Resolution Date Notes Provider Name and Address Organization Details Recorded Time Pregnanc y 10846655 Completed 202112/16/2022 Phyllis irving, [facility] 5 19:04:31 Mixed anxiety and depressi ve disorder 758411284 Active no meds for 3 years. prozac. Cristo irving, [facility] 3 16:05:30 Asthma 316781045 Completed albutero l rarely Cristo irving, [facility] 3 16:05:30 Mixed anxiety and depressi ve disorder 852740047 Completed no meds for 3 years. prozac. Cristo irving, [facility] 3 16:05:29 Subchori onic hematoma 194900948 Completed Cristo irving, [facility] 3 16:05:29 Asthma 732788263 Active albutero l rarely Phyllisadela [facility], [facility] 5 10:18:28 Nausea and vomiting 22054308 Completed rani Dang null, [facility] 3 16:05:30 Uterine size for dates discrepa ncy 595527249 Completed 2022 Yaima Lopez MD [address], [place], [address], [facility] 3 10:46:18 growth restrict ion 23470682 Completed IUGR 7% AC 4% at 34w, MFM 11% Cristo Laurence [facility], [facility] 3 16:05:29 Pregnanc y 97625859 Completed 202308/31/2024 Phyllis Torres null, [facility] 5 19:04:31 Anxiety disorder 874936513 Completed no meds Phyllis [facility], [facility] 5 10:18:28 History of growth retardat ion 8256074607 9108 Completed pregnanc y in 2022 plan antenata l testing at 32 weeks Phyllis Torres [facility], [facility] 5 10:18:28 Asthma 289737427 Completed albutero l rarely Phyllis Torres null, [facility] 5 10:18:28 Problem Notes None recorded. Procedures Surgical History Date Name Laterality Status Provider Name and Address Organization Details Recorded Time 5 IUD Removal completed Jin Nichole MD [address], [place], [address], [facility] 10/29/2024 17:03:11 5 IUD Removal completed Jin Nichole MD [address], [place], [address], [place] [facility] 10/28/2024 14:55:02 5 IUD Insertion completed Jin Nichole MD [address], [place], [address], [place] [facility] 10/28/2024 14:54:51 5 IUD Insertion completed Zahraa Barton CNM [address], [place], [address], [place] [facility] 10/01/2024 10:21:29 4 Control Implant Removal completed Elizabeth Lamb [facility]- [address], [place], [address], [facility] 09/16/2023 16:36:58 3 Control Implant Insertion completed Yaima Lopez MD [address], [place], [address], [place] [facility] 05/09/2023 13:18:32 3 Date of Last Pap Smear completed Merly Fontana [facility] 06/04/2023 17:19:25 3 procedure on ear completed Phyllis Torres [facility] 03/24/2024 10:32:42 Imaging Results Imaging Date Name Status LastModified by Organization Details LastModified Time 08/17/2024 US, obstetric, biophysical profile completed [address] [place] [address], [address], 08/19/2024 11:25:39 08/17/2024 US, obstetric, biophysical profile completed [address], [place], [address], 08/19/2024 11:25:21 10/28/2024 US, transvaginal completed [email or web address] [facility] [address], [place], [address], 10/28/2024 15:31:04 10/28/2024 US, transvaginal completed [email or web address] [address], [place], [address], 10/28/2024 20:13:15 Procedure Notes None recorded. Medical Equipment None Reported. Allergies No known drug allergies Medications Name Sig Start Date Stop Date Status Note LastModified by Organization Details LastModified Time nifedipine ER 30 mg tablet,exte nded release 24 hr 08/13 completed Not Available Not Available Not Available amoxicillin 500 mg capsule TAKE 1 CAPSULE BY MOUTH EVERY 8 HOURS 02/01 completed Not Available Not Available Not Available Mirena 21 mcg/24 hr (up to 8 years) 52 mg intrauterin e device Take 1 device by intrauter ine route. 2024 active Not Available Not Available Not Avai lable amitriptyli ne 75 mg tablet TAKE 1 TABLET BY MOUTH EVERY DAY AT BEDTIME 04/19 completed Not Available Not Available Not Available ofloxacin 0.3 % eye drops INSTILL 1 DROP INTO LEFT EYE FOUR TIMES DAILY 06/04 completed Not Available Not Available Not Available nystatin 100,000 unit/gram topical ointment 09/17 completed Not Available Not Available Not Available sumatriptan 25 mg tablet TAKE 1 TABLET BY MOUTH EVERY DAY NEEDED 04/19 completed Not Available Not Available Not Available prednisone 20 mg tablet TAKE 1 AND 1/2 TABLETS BY MOUTH DAILY 04/19 completed Not Available Not Available Not Available ketorolac 0.5 % eye drops INSTILL 1 DROP IN LEFT EYE THREE TIMES DAILY. 06/04 completed Not Available Not Available Not Available nystatin-tr iamcinolone 100,000 unit/gram-0 .1 % topical ointment APPLY TO THE AFFECTED AREA(S) BY TOPICAL ROUTE 2 TIMES PER DAY 09/17 completed Not Available Not Available Not Available ofloxacin 0.3 % ear drops INSTILL 5 DROPS IN THE RIGHT EAR TWICE DAILY FOR 7 DAYS 04/19 completed Not Available Not Available Not Available gentamicin 0.3 % eye drops INSTILL 1 DROP BY OPTHALMIC ROUTE EVERY 3-4 HOURS 06/04 completed Not Available Not Available Not Available phenazopyri dine 100 mg tablet TAKE 1 TABLET BY MOUTH TWICE DAILY FOR 2 DAYS NEEDED 09/16 completed Not Available Not Available Not Available cephalexin 500 mg capsule Take 1 capsule twice a day by oral route for 7 days. 08/04 completed Not Available Not Available Not Available triamcinolo ne acetonide 0.1 % topical ointment APPLY THIN LAYER TOPICALLY TO THE AFFECTED AREA TWICE DAILY 09/17 completed Not Available Not Available Not Available nystatin 100,000 unit/gram topical cream APPLY TOPICALLY TO AFFECTED AREA TWICE DAILY 06/23 completed Not Available Not Available Not Available fluoxetine 10 mg capsule Take 1 capsule every day by oral route. 06/04 completed Not Available Not Available Not Available Anusol-HC 25 mg rectal suppository Insert 1 supposito ry twice a day by rectal route for 14 days. 02/26 completed Not Available Not Available Not Available ondansetron 4 mg disintegrat ing tablet DISSOLVE 1 TABLET ON THE TONGUE THREE TIMES DAILY NEEDED 06/04 completed Not Available Not Available Not Available sertraline 50 mg tablet TAKE 1 TABLET BY MOUTH EVERY DAY 07/31 completed Not Available Not Available Not Available dicyclomine 10 mg capsule TAKE 1 CAPSULE BY MOUTH FOUR TIMES DAILY 04/19 completed Not Available Not Available Not Available naproxen 500 mg tablet 04/19 completed Not Available Not Available Not Available medroxyprog esterone 150 mg/mL intramuscul ar syringe Inject 1 mL every 3 months by intramusc ular route. active Not Available Not Available No t Available nitrofurant oin monohydrate /macrocryst als 100 mg capsule TAKE 1 CAPSULE BY MOUTH EVERY 12 HOURS WITH MEALS FOR 7 DAYS FOR UTI 07/07 completed Not Available Not Available Not Available active Not Available Not Avai lable Not Available Tucorys (debbie nesbitt) 50 % topical pads apply externall y to the affected area up to 6 times daily 02/26 completed Not Available Not Available Not Available Nexplanon 68 mg subdermal implant Inject by subcutane ous route. 02/26 completed Not Available Not Available Not Available Aurovela 24 Fe 1 mg-20 mcg (24)/75 mg (4) tablet TAKE 1 TABLET BY MOUTH EVERY DAY WITH MEALS 02/26 completed Not Available Not Available Not Available ID NOW COVID-19 Test Kit DIRECTED 04/19 completed Not Available Not Available Not Available Vitals Date Recorded Body height Body mass index (BMI) Body weight Systolic blood pressure Diastolic blood pressure Provider Name and Address Organization Details Last Updated DateTime 09/17/2024 154.94 cm 20 kg/m2 92005.79 g 112 mm[Hg] 76 mm[Hg] Phyllis Torres [facility] 10:15:23 Date Recorded Body height Body mass index (BMI) Body weight Systolic blood pressure Diastolic blood pressure Provider Name and Address Organization Details Last Updated DateTime 10/01/2024 154.94 cm 20 kg/m2 71709.79 g 113 mm[Hg] 73 mm[Hg] Phyllis Torres [facility] 09:52:09 Date Recorded Body height Body mass index (BMI) Body weight Provider Name and Address Organization Details Last Updated DateTime 10/28/2024 154.94 cm 20 kg/m2 53907.79 g Merly [facility] 10/28/2024 11:47:33 Date Recorded Body height Body mass index (BMI) Body weight Systolic blood pressure Diastolic blood pressure Provider Name and Address Organization Details Last Updated DateTime 10/29/2024 154.94 cm 19.8 kg/m2 05083.2 g 120 mm[Hg] 82 mm[Hg] Emrly [facility] 16:37:55 Social History Question Answer Notes LastModified by Organizat ion Details LastModified Time Tobacco Smoking Status [facility]/16/2023 16:16:09 Do You Have An Advance Directive? No [email or web address] Information n ot available 10/02/2022 What Is Your Level Of Alcohol Consumption? None Information not available 04/19/2022 If You Are , What Was Your Level Of Alcohol Consumption Prior To ? Occasional [email or web address] Information not available 04/21/2024 How Many Years Have You Consumed Alcohol? 0 [email or web address] Information not available 04/21/2024 Are You Blind Or Do You Have Difficulty Seeing? No Information n ot available 10/02/2022 What Is Your Level Of Caffeine Consumption? Moderate Information not available 04/21/2024 In The 14 Days Before Symptom Onset, Have You Had Close Contact With A Laboratory-confirm ed COVID-19 While That Case Was Ill? No [email or web address] Information n ot available 10/02/2022 In The 14 Days Before Symptom Onset, Have You Had Close Contact With A Person Who Is Under Investigation For COVID-19 While That Person Was Ill? No [email or web address] Information not available 10/02/2022 Have You Been To An Area Known To Be High Risk For COVID-19? No [email or web address] Information not available 10/02/2022 Are You Deaf Or Do You Have Serious Difficulty Hearing? No [email or web address] Information not available 10/02/2022 What Type Of Diet Are You Following? REGULAR [email or web address] Information n ot available 10/02/2022 What Is The Highest Grade Or Level Of School You Have Completed Or The Highest Degree You Have Received? [id number] [email or web address] Information not available 10/02/2022 Are There Any Guns Present In Your Home? No [email or web address] Information not available 10/02/2022 Do You Use Protection During Sex? No [email or web address] Information not available 10/02/2022 Do You Use Your Seat Belt Or Car Seat Routinely? Yes [email or web address] Information not available 10/02/2022 Do You Have Smoke And Carbon Monoxide Detectors In Your Home? Yes [email or web address] Information not available 04/21/2024 How Much Tobacco Do You Smoke? No [email or web address] Information not available 10/02/2022 Do You Feel Stressed (tense, Restless, Nervous, Or Anxious, Or Unable To Sleep At Night)? [id number] [email or web address] Information not available 04/21/2024 Do You Use Any Illicit Or Recreational Drugs? No Information not available 04/19/2022 Do You Use Sunscreen Routinely? No [email or web address] Information not available 10/02/2022 Has Tobacco Cessation Counseling Been Provided? No [email or web address] Information not available 09/16/2023 Have You Used IV Drugs? No Information not available 10/02/2022 Do You Or Have You Ever Used Any Other Forms Of Tobacco Or Nicotine? No [email or web address] Information not available 09/16/2023 Sex: Unknown Functional Status Question Answer Note LastModified by Organizat ion Details LastModified Time Do you have difficulty walking or climbing stairs? No [email or web address] Information not available 09/16/2023 Are you able to walk? YESWOREST [email or web address] Information not available 10/02/2022 Are you able to care for yourself? Yes [email or web address] Information not available 09/16/2023 Do you have difficulty dressing or bathing? No [email or web address] Information not available 09/16/2023 What is your exercise level? Occasional [email or web address] Information not available 04/21/2024 Mental Status None recorded. Family History Relationship Description Onset Age of this Age Resolved Age Notes LastModified by Organization Details LastModified Time Father Depressive disorder [email or web address] Not available 2021 10:16:43 Mother Depressive disorder [email or web address] Not available 2021 10:16:43 Mother Asthma [email or web address] Not available 10:16:54 Mother Anxiety disorder [email or web address] Not available 2021 10:17:04 Sister Depressive disorder [email or web address] Not available 10/02 17:02:38 Maternal Aunt Depressive disorder [email or web address] Not available 10/02 17:02:38 Medical History Condition Response Allergies (Food, seasonal, environmental ) Y Other N Breast Cancer N Drug/Latex Allergies/Reactions N Blood Transfusion N Dermatologic Disorders N Lung Disease N Defects or Inherited Disease N Breast Problem N Gestational Diabetes N Hematologic disorders N Anesthesia Complications N History of STI N Deep Vein Thrombosis N Polycystic ovary syndrome N Anxiety Disorder Y Autoimmune disease N Arthritis N Infertility N Polyps N Acid Reflux (GERD) N History of abnormal pap N Cancer N Stroke N Varicosities N Neurologic/Epilepsy N Endometriosis N High Cholesterol N Headaches N Fibromyalgia N Kidney Disease N Heart Problems N Kidney or Bladder Problems N Thyroid Problems N GI Problems N Eating Disorder N Anemia N Art (IVF or FET) N Psychiatric Illness N Ovarian Cancer N Diabetes N Pulmonary (TB, Asthma) N Hepatitis/Liver Disease N No Past Medical History N Eczema N Urinary Tract Infection N Abuse/Domestic Violence N Asthma Y Trauma/Violence N Depression/ depression Y Heart Disease N Pre-Eclampsia N Hypertension N Osteoporosis N Thrombophilias N Gynecological History Statement/Question Response Date of Last Mammogram Date of LMP 12/04/2023 On BCP's at Conception? N N Was last menstrual period normal N STIs/STDs N HPV Vaccine N Duration of Flow (days) 7 Current Control Method IUD Date of control 03/17/2021 Are cycles usually normal N Frequency of Cycle (Q days) 28 Sexually Active? Y Menses Monthly Y Date of DEXA bone scan Age of first menstrual cycle 14 Date of Last Pap Smear 04/22/2023 Sexual Problems? N Desired Control Method Hormonal In jection LMP Unknown N Obstetrics History GPAL:G 2 P 1 1 0 2 Type Value Full Term 1 Premature 1 Living 2 Total 2 Past Encounters Encounter ID Performer Location Encounter Start Date Encounter Closed Date Diagnosis/Indication Diagnosis SNOMED-CT Code Diagnosis ICD10 Code Diagnosis Note [id number] Danielle Ferrara [facility] [address] [address] 04/18/2022 12:20:20 04/18/2022 13:03:22 Uncertain viability of 149596900 O36.80X0 Z3A.01 [id number] Yaima Lopez MD [facility] [address],[facility] [address] 04/19/2022 10:01:17 04/19/2022 17:23:28 Uncertain viability of 058561657 O36.80X0 Z3A.01 Mixed anxi ety and depressive disorder 185383222 F41.8 Asthma 676727864 J45.90 9 test positive 809622306 Z32.01 Venereal d isease screening 267888362 Z11.3 [id number] Yaa Bell [facility] [address],[facility] [address] 04/30/2022 13:39:26 05/01/2022 15:21:11 Uncertain viability of 556933125 O36.80X0 Z3A.01 [id number] Yaima Lopez MD [facility] [address],[place] [address] 05/01/2022 13:51:54 07/20/2022 20:54:20 [id number] Danielle Ferrara [facility] [address],[place] [address] 06/04/2022 10:37:58 06/04/2022 14:09:16 screening 201243611 Z36.82 [id number] Yaima Lopez MD [facility] [address],[place] [address] 06/04/2022 10:39:16 06/05/2022 16:15:38 Routine care 671227847 Z34.91 Mixed anxi ety and depressive disorder 587551913 F41.8 [id number] Yaima Lopez MD [facility] [address],[place] [address] 07/05/2022 14:12:50 07/06/2022 09:41:43 Nausea and vomiting 66150642 R11.2 Depressive disorder 3548 9007 F32.A Mixed anxi ety and depressive disorder 716950358 F41.8 [id number] [place] [address],[place] [address] 07/31/2022 11:23:13 07/31/2022 12:24:53 screening for malformation 104473523 Z36.3 [id number] Yaima Lopez MD [facility] [address],[place] [address] 07/31/2022 11:23:50 07/31/2022 14:27:56 Mixed anxiety and depressive disorder 775149369 F41.8 Routine an tenatal care 055121382 Z34.91 screening 2437 24576 Z36.89 [id number] [facility] [address],[place] [address] 09/02/2022 09:57:33 09/02/2022 10:32:37 screening 645758970 Z36.2 [id number] Yaima Lopez MD [facility] [address],[place] [address] 09/02/2022 09:59:34 09/02/2022 13:23:54 Routine care 688035733 Z34.91 Mixed anxi ety and depressive disorder 202287832 F41.8 Nausea and vomiting 1693 2000 R11.2 [id number] Yaima Lopez MD [facility] [address],[place] [address] 09/24/2022 10:53:35 09/24/2022 11:57:17 Routine care 919177593 Z34.91 Uterine si ze for dates discrepancy 434298741 O26.849 [id number] Danielle Ferrara [facility] [address],[place] [address] 10/02/2022 15:45:17 10/02/2022 16:53:54 Uterine size for dates discrepancy 726104849 O26.849 Z3A.29 [id number] Zahraa Barton [facility] [address],[place] [address] 10/02/2022 15:45:38 10/02/2022 18:01:11 Routine care 501241195 Z34.93 [id number] Yaima Lopez MD [facility] [address],[place] [address] 10/22/2022 11:40:27 10/22/2022 12:37:41 Routine care 565295954 Z34.91 [id number] [facility] [address],[place] [address] 11/05/2022 09:58:38 11/05/2022 11:05:20 Small for gestational age fetus 879279917 O36.5999 [id number] Yaima Lopez MD [facility] [address],[place] [address] 11/05/2022 09:59:01 11/05/2022 11:20:09 growth restriction 98640455 O36.5999 [id number] [facility] [address],[place] [address] 11/05/2022 11:05:30 11/05/2022 12:09:51 growth restriction 53808695 O36.5999 [id number] Danielle Ferrara [facility] [address],[place] [address] 11/12/2022 09:23:06 11/12/2022 10:18:18 condition affecting obstetrical care of mother 386860966 O36.5999 Z3A.35 [id number] [facility] [address],[place] [address] 11/12/2022 09:23:35 11/12/2022 10:39:55 growth restriction 30297976 O36.5999 [id number] Yaima Lopez MD [facility] [address],[place] [address] 11/12/2022 09:23:49 11/14/2022 10:58:12 growth restriction 34692547 O36.5999 Routine an tenatal care 063911912 Z34.91 [id number] Cherylchicho Maurer [facility] [address],[place] [address] 11/19/2022 09:31:11 11/19/2022 10:30:17 growth restriction 94551887 O36.5999 [id number] Yaima Lopez MD [facility] [address],[place] [address] 11/19/2022 09:32:09 11/21/2022 13:11:59 growth restriction 25376384 O36.5999 [id number] Yaa Bell [facility] [address],[place] [address] 11/19/2022 10:13:58 11/19/2022 11:02:48 Poor growth affecting management 440051486 O36.5930 Z3A.36 [id number] [facility] [address],[place] [address] 11/26/2022 09:47:00 11/26/2022 15:07:11 condition affecting obstetrical care of mother 484734911 O36.93X0 Z3A.37 [id number] Flakita Carmona [facility] [address],[place] [address] 11/26/2022 10:01:50 11/26/2022 11:18:54 growth restriction 84264085 O36.5999 [id number] Yaima Lopez MD [facility] [address],[place] [address] 11/26/2022 10:53:45 11/26/2022 11:34:32 growth restriction 88924798 O36.5999 Mixed anxi ety and depressive disorder 122992946 F41.8 [id number] Yaa Bell [facility] [address],[place] [address] 12/03/2022 09:21:22 12/03/2022 10:18:51 Poor growth affecting management 548288578 O36.5930 Z3A.38 [id number] Cheryl Maurer [facility] [address],[place] [address] 12/03/2022 09:22:17 12/03/2022 11:20:08 growth restriction 63325055 O36.5999 Uterine si ze for dates discrepancy 801508302 O26.849 Z3A.29 [id number] Yaima Lopez MD [facility] [address],[place] [address] 12/03/2022 09:22:30 12/04/2022 18:36:35 growth restriction 33293546 O36.5999 [id number] Yaima Lopez MD [facility] [address],[place] [address] 01/06/2023 10:23:12 01/06/2023 11:49:03 care 273264616 Z39.2 [id number] Yaima Lopez MD [facility] [address],[place] [address] 04/22/2023 14:15:07 04/23/2023 10:37:28 Gynecologic examination [id number] Z01.419 Z11.3 Z11.8 Contracept ion care management [id number] Z30.9 [id number] Yaima Lopez MD [facility] [address],[place] [address] 05/09/2023 11:51:46 05/09/2023 13:20:23 Contraception care management [id number] Z30.9 Insertion of subcutaneous contraceptive [id number] Z30.9 [id number] Elizabeth Lamb [facility] [address],[place] [address] 06/04/2023 17:08:13 06/04/2023 17:35:21 Urinary symptoms [id number] R39.9 Urine culture sentVERY Prominent urinary sx'sRx sentLots of waterBreas t feeding-wi ll use pyridium very sparingly for only 1-2 days.STD sent Counseled on medication R/B's, Most common side effects, & use. All questions were answered to patient satisfacti on. Time spent in visit is a total of 20 mins with at least 50% of visit consisting of counseling and review of plan of care. [id number] Elizabeth Lamb , [facility] [address],[place] [address] 09/16/2023 16:15:37 09/16/2023 16:51:14 Contraception care management [id number] Z30.9 Discussed all control options in great detail. Pt would like to start ocp. She is aware of the risks and benefits. She does not have any medical condition that is contraindi cated with the use of estrogen containing control. Pt will start her pills on the first friday following the start of her period. She is aware it is not effective for control the first month. She is also aware of the importance of taking at the same time every day. Encouraged use of condoms as the pill does not protect against STD's. Will return in 3 months for med check. Consent was read and signed. Pt verbalized understand ing.RTO x 3mos OCP checkUse back up method x 4wks secondary method bc. Time spent in visit is a total of 30 mins with at least 50% of visit consisting of counseling and review of plan of care NOT INCLUDING TIME SPENT ON PROCEDURE. Removal of subcutaneous contraceptive [id number] Z30.46 Removal site was cleansed with betadine and 3cc of lidocaine used for anesthesia . Device was removed in normal fashion without difficulty . Steri stips and pressure bandage placed. External hemorrhoids [id number] 55986 K64.4 Small pea size ext hemorrhoid seen on exam.Likel y the pink tinge she is having with wipe on days she had BM and did not take stool softners.U se softners dailyIncre ase fiber and water [id number] [facility] [address],[facility] [address] 01/08/2024 14:18:16 01/08/2024 14:40:19 screening [id number] Z36.87 O36.80X0 Z3A.01 [id number] [facility] [address],[place] [address] 01/15/2024 14:50:04 01/15/2024 15:46:53 Uncertain viability of [id number] O36.80X0 Z3A.01 [id number] [facility] [address],[place] [address] 02/02/2024 14:47:55 02/02/2024 15:40:06 test positive [id number] Z32.01 [id number] Jin Nichole MD [facility] [address],[place] [address] 02/02/2024 14:48:22 02/03/2024 02:40:43 Amenorrhea 90920006 N91.2 this patient is a 23year-old female who presents for amenorrhea . She is a positive test. Ultrasound revealed a 1st trimester gestation. Patient has no complaints . We talked about early care. Talked about genetic screening. We talked about her ultrasound results. We talked about the 12 week ultrasound that has genetic screening components . She was given recommenda tions on exercise, diet, over-the-c ounter medication s. We reviewed her obstetric history. We reviewed her medical history. We reviewed her social history. She will begin routine care at her next visit. [id number] Zahraa Barton CNM [facility] [address],[place] [address] 02/27/2024 09:05:39 02/27/2024 10:07:31 Gestation period, 12 weeks [id number] Z3A.12 [id number] [facility] [address],[place] [address] 02/27/2024 09:04:50 02/27/2024 09:42:41 screening [id number] Z3A.01 Z36.82 Z3A.12 Zahraa Barton [facility] [address],[place] [address] 03/24/2024 10:19:22 03/24/2024 10:49:25 Gestation period, 15 weeks 4992865 Z3A.15 continue vitamin [id number] [facility] [address],[place] [address] 04/21/2024 09:37:15 04/21/2024 10:39:26 screening for malformation 535469027 Z36.3 Z3A.19 [id number] [facility] [address],[place] [address] 04/21/2024 09:37:33 04/21/2024 11:40:48 Gestation period, 19 weeks 13800846 Z3A.19 continue vitamin [id number] [facility] [address],[place] [address] 05/19/2024 09:40:07 05/19/2024 10:58:07 Routine care 892461028 Z34.93 continue vitamin Pruritic rash 53246941 L 28.2 [id number] [facility] [address] [place] [address] 06/23/2024 09:26:27 06/23/2024 10:08:07 History of growth retardation [id number] 9108 Z87.59 Z3A.28 [id number] [facility] [address] [place] [address] 06/23/2024 09:26:45 06/23/2024 10:30:55 Gestation period, 28 weeks 27661267 Z3A.28 continue vitamin [id number] Zahraa Barton [facility] [address],[place] [address] 07/07/2024 09:42:33 07/07/2024 10:21:19 Routine care 167133987 Z34.93 continue vitamin [id number] Zahraa Barton [facility] [address],[place] [address] 07/21/2024 10:45:03 07/21/2024 12:08:57 Gestation period, 32 weeks 8951277 Z3A.32 continue vitamin [id number] [facility] [address],[place] [address] 07/28/2024 09:02:55 07/28/2024 09:35:18 Past history of small for gestational age baby 516602647 Z87.59 Z3A.33 [id number] Phyllis Torres [facility] [address],[place] [address] 07/28/2024 09:05:04 07/29/2024 15:23:22 growth restriction 50944266 O36.5999 [id number] Zahraa Barton [facility] [address],[place] [address] 07/28/2024 09:05:27 07/28/2024 10:33:08 Gestation period, 33 weeks 73642584 Z3A.33 continue vitamin [id number] Monica Steen [facility] [address],[place] [address] 08/04/2024 09:52:28 08/04/2024 14:04:12 35182317 Z33.1 grow th restriction 01950034 O36.5999 Z3A.34 [id number] [facility] [address],[place] [address] 08/04/2024 09:52:43 08/04/2024 11:08:20 Past history of small for gestational age baby 785302089 Z87.59 Z3A.34 [id number] [facility] [address],[place] [address] 08/04/2024 09:53:10 08/04/2024 11:42:47 Gestation period, 34 weeks 75586284 Z3A.34 continue vitamin Vulval irritation 293917 003 N90.89 [id number] [facility] [address],[place] [address] 08/11/2024 11:58:44 08/11/2024 12:34:40 Past history of small for gestational age baby 685608166 Z87.59 Z3A.35 [id number] Phyllis Torres [facility] [address],[place] [address] 08/11/2024 11:58:58 08/12/2024 10:57:10 growth restriction 57218869 O36.5999 [id number] [facility] [address],[place] [address] 08/13/2024 09:54:41 08/13/2024 10:51:29 Gestation period, 36 weeks 20914305 Z3A.36 Small for gestational age fetus 341135009 O36.5999 [id number] [facility] [address],[place] [address] 09/17/2024 10:00:43 09/17/2024 11:19:42 care 093015555 Z39.2 f/u 2 weeks iud placement, abstain until placement [id number] [facility] [address] [place] [address] 10/01/2024 09:40:29 10/01/2024 10:55:09 Insertion of intrauterine contraceptive device 31109789 Z30.430 [id number] [facility] [address] [place] [address] 10/28/2024 10:43:33 10/28/2024 11:45:19 Mechanical complication of intrauterine contraceptive device 453765853 T83.39XA [id number] Jin Nichole MD [facility] [address],[place] [address] 10/28/2024 11:37:07 10/28/2024 14:58:51 Insertion of intrauterine contraceptive device 40293861 Z30.430 Contracept ion care management 454683386 Z30.9 IUD was removed and replaced without complicati ons. She will have a ultrasound to confirm placement. [id number] Merly Fontana [facility] [address],[place] [address] 10/29/2024 15:49:59 11/01/2024 09:53:07 Contraception care management 433881066 Z30.9 IUD was removed without complicati ons. She tollerated it well Health Concerns Section Related Observation LastModified by Organization Detai ls LastModified Time None Recorded Concern Status LastModified by Organization Details LastModified Time None Recorded Advance Directives Directive N: Payers Encounter Date Sequence Insurance Name Policy Number Policy Serrato Covered Member ID Serrato Member ID Guarantor Name 09/17/2024 1 [facility] ON OR AFTER 02/22/21 (MEDICAID REPLACEMENT - HMO) Anu Rivera [id number] Anu Miguel 10/01/2024 1 [facility] ON OR AFTER 02/22/21 (MEDICAID REPLACEMENT - HMO) Anu Rivera [id number] Anu Rivera 10/28/2024 1 [facility] ON OR AFTER 02/22/21 (MEDICAID REPLACEMENT - HMO) Anu Rivera [id number] Anu Rivera 10/28/2024 1 [facility] ON OR AFTER 02/22/21 (MEDICAID REPLACEMENT - HMO) Anu Rivera [id number] Anu Rivera 10/29/2024 1 [facility] ON OR AFTER 02/22/21 (MEDICAID REPLACEMENT - HMO) Anu Rivera [id number] Anumanish [place] Notes Date Note Type Note Provider Name and Address Organization Details Recorded Time 09/17/2024 text/html VisitReported bypatient.Quality:N Context:complicatio ns of : none; complications of labor: none; complications: none; feeding choice: breast; good support from partner/family; resumed menstrual bleeding no Associated Symptoms:no abnormal bleeding; no vaginal discharge; no pelvic pain; no constipation; no fecal incontinence; no dysuria; no urinary incontinence; no fever; no problems; no mastitis; normal mood Contraception Plan:IUD Phyllis Torres null, [facility] 09/17/2024 11:43:20 10/01/2024 text/html Patient presents for IUD insertion. se risks and benefits including bleeding perforation and expulsion consent signed upt negative Zahraa Barton CNM [address], [place], [address], [facility] 10/01/2024 10:21:46 10/28/2024 text/html 24-year-old fema le with malpositioned IUD. To have IUD removal and replacement. The procedure was explained to the patient in detail. She understands the procedure. She understands the risks, benefits, and alternatives. She has completed the informed consent process and is ready to proceed. Jin Nichole MD [address], [place], [address], [facility] 10/28/2024 14:55:58 10/29/2024 text/html 24 yo female presents for IUD removal. The procedure was explained to the patient in detail. She understands the procedure. She understands the risks, benefits, and alternatives. She has completed the informed consent process and is ready to proceed. Merly Fontana null, [facility] 10/29/2024 17:27:02 OBGyn Episode Ob Episode Information Episode Created Date Number of Fetuses Patient Bloodtype Patient rh Status Prepregnancy Weight lbs Domestic Partner Domestic Partner Phone Father Name Cable Respooler Status 06/04/20 22 1 O Positive 98 CLOSED Fetus Data First Name Last Name Admitted to NICU Weight (g) Sex Living Outcome Pediatric Complications Fetus ID Race Codes Race Delivery Type 2806.60 05 F true Full Term IUGR [id number] Vaginal Delivery Problems Problem Notes Jessica ptMFM 11/08 145P u/s a nd NST Problem Name Start Date End Date Resolution Snomed Code Not e growth restriction 99978343 IUGR 7% AC 4% a t 34w, MFM 11% Asthma 790051179 albuterol rarely Mixed anxiety and depressive disorder 496764506 no meds for 3 years. prozac. Subchorionic hematoma 97811892 4 Nausea and vomiting 21923785 zofran Tuan Calculation Initial Tuan Date Initial Exam Date Initial Exam Provider Initial Ultrasound Date Last Menstrual Period Date Ultra Sound Weeks Gestation 12/15/2022 06/04/2022 04/30/2022 02/20/2022 7 Eighteen To Twenty Week Tuan Update Ultra Sound Date Fundal Height At Umbil Quickening Date Ultra Sound Latest Weeks Gestation Final Tuan Confirmed By Final Tuan Confirmed Date Final Tuan Date Ultra Sound Latest Days Gestation 0 06/04/2022 12/16/19 23 0 Pre-portillo Flowsheet Flowsheet Date 05/01/2022 Langston Score Blood Edema Fundus Height Fundus Units Glucose Ketones Leukocytes Nitrite Labor Signs Protein Cervic Dilation Cervic Effacement Cervic Station Type Weight in lbs Pre/Post Dialysis Refused BP Diastolic BP Location Tested BP Systolic BP Type Fetus Heart Rate Present Fetus Movement Comments Flowsheet Date 06/04/2022 Langston Score Blood Edema Fundus Height Fundus Units Glucose Ketones Leukocytes Nitrite Labor Signs Protein Cervic Dilation Cervic Effacement Cervic Station Type Weight in lbs Pre/Post Dialysis Refused BP Diastolic BP Location Tested BP Systolic BP Type Fetus Heart Rate Present Fetus Movement Comments Flowsheet Date 06/04/2022 Langston Score Blood Edema Fundus Height Fundus Units Glucose Ketones Leukocytes Nitrite Labor Signs Protein Cervic Dilation Cervic Effacement Cervic Station neg none none trace Type Weight in lbs Pre/Post Dialysis Refused Weight 105.158286729557 BP Diastolic BP Location Tested BP Systolic BP Type 74 115 Fetus Heart Rate Present A 155 Fetus Movement A No Comments Anu is a 22yo G1 at 12. 2 for care. Her history is significant for anxiety and depression, no meds for 3 years, and mild asthma, with rare use of albuterol. Her mood is a little angry but she declines medication or other resources. She has a small DOUGLAS on US. She has not had COVID vaccines. We discussed and I encouraged COVID and flu vaccines. PNL and NIPT today. Normal NT today. AFP next visit. Flowsheet Date 07/05/2022 Langston Score Blood Edema Fundus Height Fundus Units Glucose Ketones Leukocytes Nitrite Labor Signs Protein Cervic Dilation Cervic Effacement Cervic Station neg none none trace Type Weight in lbs Pre/Post Dialysis Refused Weight 108.700817791325 BP Diastolic BP Location Tested BP Systolic BP Type 71 105 Fetus Heart Rate Present A 140 Fetus Movement A Yes Comments Doing ok. Still N/V multiple times most days, seems to be worse the last few weeks. Denies constipation and GERD. Will try zofran. Anatomy US next visit. She also complains of being angry and irritable, feels depressed. denies SI/HI, has history of cutting, but is not doing that now. would like to start something. discussed RBA< will start zoloft. Still considering covid vaccines, will do flu shot. AFP today. depression and anxiety precautions given. Flowsheet Date 07/31/2022 Langston Score Blood Edema Fundus Height Fundus Units Glucose Ketones Leukocytes Nitrite Labor Signs Protein Cervic Dilation Cervic Effacement Cervic Station Type Weight in lbs Pre/Post Dialysis Refused BP Diastolic BP Location Tested BP Systolic BP Type Fetus Heart Rate Present Fetus Movement Comments Flowsheet Date 07/31/2022 Langston Score Blood Edema Fundus Height Fundus Units Glucose Ketones Leukocytes Nitrite Labor Signs Protein Cervic Dilation Cervic Effacement Cervic Station neg none none trace Type Weight in lbs Pre/Post Dialysis Refused Weight 114.851689838069 BP Diastolic BP Location Tested BP Systolic BP Type 65 101 Fetus Heart Rate Present A 160 Fetus Movement A Yes Comments Doing well. US today anatomy complete and wnl except profile and 4 ch view, repeat next visit. Not taking zoloft. Tried a bunch of times and always got a RICHARD the next morning. Will try prozac instead. Did not get flu shot yet, will do. Flowsheet Date 09/02/2022 Langston Score Blood Edema Fundus Height Fundus Units Glucose Ketones Leukocytes Nitrite Labor Signs Protein Cervic Dilation Cervic Effacement Cervic Station Type Weight in lbs Pre/Post Dialysis Refused BP Diastolic BP Location Tested BP Systolic BP Type Fetus Heart Rate Present Fetus Movement Comments Flowsheet Date 09/02/2022 Langston Score Blood Edema Fundus Height Fundus Units Glucose Ketones Leukocytes Nitrite Labor Signs Protein Cervic Dilation Cervic Effacement Cervic Station neg none none trace Type Weight in lbs Pre/Post Dialysis Refused Weight 115.299199933795 BP Diastolic BP Location Tested BP Systolic BP Type 66 100 Fetus Heart Rate Present A 135 Fetus Movement A Yes Comments Doing well. Doing much candace r with prozac, helping anxiety and depression. N/V improving but not gone, needs zofran refill. Declines flu shot. US today anatomy now complete, EFW 14%, will check growth in 4-6w. Flowsheet Date 09/24/2022 Langston Score Blood Edema Fundus Height Fundus Units Glucose Ketones Leukocytes Nitrite Labor Signs Protein Cervic Dilation Cervic Effacement Cervic Station neg trace 25 none trace Type Weight in lbs Pre/Post Dialysis Refused Weight 119.030227979109 BP Diastolic BP Location Tested BP Systolic BP Type 67 103 Fetus Heart Rate Present A 130 Fetus Movement A Yes Comments Doing well. Great FM> GCT to day. Discussed and encouraged Tdap. Growth US next for S<D. Flowsheet Date 10/02/2022 Langston Score Blood Edema Fundus Height Fundus Units Glucose Ketones Leukocytes Nitrite Labor Signs Protein Cervic Dilation Cervic Effacement Cervic Station Type Weight in lbs Pre/Post Dialysis Refused BP Diastolic BP Location Tested BP Systolic BP Type Fetus Heart Rate Present Fetus Movement Comments Flowsheet Date 10/02/2022 Langston Score Blood Edema Fundus Height Fundus Units Glucose Ketones Leukocytes Nitrite Labor Signs Protein Cervic Dilation Cervic Effacement Cervic Station neg none none trace Type Weight in lbs Pre/Post Dialysis Refused Weight 118.211365313150 BP Diastolic BP Location Tested BP Systolic BP Type 59 97 Fetus Heart Rate Present Fetus Movement A Yes Comments PATIENT IS HAVING SOME PAIN, DISCHARGE, NAUSEA AND VOMITING. Occ smoking marijuana for sleep, reviewed studies don't recommend it in , pt questions answered. EFW 12% will await dr reading of report to see if would like additional follow up. gct done last week, tdap complete, precautions reviewed f/u 2 weeks Flowsheet Date 10/22/2022 Langston Score Blood Edema Fundus Height Fundus Units Glucose Ketones Leukocytes Nitrite Labor Signs Protein Cervic Dilation Cervic Effacement Cervic Station neg trace 29 trace trace Type Weight in lbs Pre/Post Dialysis Refused Weight 126.05999215852 BP Diastolic BP Location Tested BP Systolic BP Type 72 110 Fetus Heart Rate Present A 115 Fetus Movement A Yes Comments Doing well, great FM. Growth next visit. Precautions given. Flowsheet Date 11/05/2022 Langston Score Blood Edema Fundus Height Fundus Units Glucose Ketones Leukocytes Nitrite Labor Signs Protein Cervic Dilation Cervic Effacement Cervic Station Type Weight in lbs Pre/Post Dialysis Refused BP Diastolic BP Location Tested BP Systolic BP Type Fetus Heart Rate Present Fetus Movement Comments Flowsheet Date 11/05/2022 Langston Score Blood Edema Fundus Height Fundus Units Glucose Ketones Leukocytes Nitrite Labor Signs Protein Cervic Dilation Cervic Effacement Cervic Station neg trace 31 none trace Type Weight in lbs Pre/Post Dialysis Refused Weight 127.937595775353 BP Diastolic BP Location Tested BP Systolic BP Type 72 109 Fetus Heart Rate Present A 135 Fetus Movement A Yes Comments Doing well. Good FM. US toda y y7%, AC 4%. Discussed IUGR, causes. NOrmal dopplers, fluid, reactive NST. TO MFM and weekly testing. Flowsheet Date 11/05/2022 Langston Score Blood Edema Fundus Height Fundus Units Glucose Ketones Leukocytes Nitrite Labor Signs Protein Cervic Dilation Cervic Effacement Cervic Station Type Weight in lbs Pre/Post Dialysis Refused BP Diastolic BP Location Tested BP Systolic BP Type Fetus Heart Rate Present Fetus Movement Comments Flowsheet Date 11/12/2022 Langston Score Blood Edema Fundus Height Fundus Units Glucose Ketones Leukocytes Nitrite Labor Signs Protein Cervic Dilation Cervic Effacement Cervic Station Type Weight in lbs Pre/Post Dialysis Refused BP Diastolic BP Location Tested BP Systolic BP Type Fetus Heart Rate Present Fetus Movement Comments Flowsheet Date 11/12/2022 Langston Score Blood Edema Fundus Height Fundus Units Glucose Ketones Leukocytes Nitrite Labor Signs Protein Cervic Dilation Cervic Effacement Cervic Station Type Weight in lbs Pre/Post Dialysis Refused BP Diastolic BP Location Tested BP Systolic BP Type Fetus Heart Rate Present Fetus Movement Comments Flowsheet Date 11/12/2022 Langston Score Blood Edema Fundus Height Fundus Units Glucose Ketones Leukocytes Nitrite Labor Signs Protein Cervic Dilation Cervic Effacement Cervic Station neg none none trace Type Weight in lbs Pre/Post Dialysis Refused Weight 127.950628016057 BP Diastolic BP Location Tested BP Systolic BP Type 70 105 Fetus Heart Rate Present A 125 Fetus Movement A Yes Comments Doing well, good FM. BPP 10/ 10 and normal dopplers today. MFM got growth at 11% but recommended continuing weekly testing and dopplers. GBS next week. Delivery at 39w if not indicated before. Flowsheet Date 11/19/2022 Langston Score Blood Edema Fundus Height Fundus Units Glucose Ketones Leukocytes Nitrite Labor Signs Protein Cervic Dilation Cervic Effacement Cervic Station Type Weight in lbs Pre/Post Dialysis Refused BP Diastolic BP Location Tested BP Systolic BP Type Fetus Heart Rate Present Fetus Movement Comments Flowsheet Date 11/19/2022 Langston Score Blood Edema Fundus Height Fundus Units Glucose Ketones Leukocytes Nitrite Labor Signs Protein Cervic Dilation Cervic Effacement Cervic Station Type Weight in lbs Pre/Post Dialysis Refused BP Diastolic BP Location Tested BP Systolic BP Type Fetus Heart Rate Present Fetus Movement Comments Flowsheet Date 11/19/2022 Langston Score Blood Edema Fundus Height Fundus Units Glucose Ketones Leukocytes Nitrite Labor Signs Protein Cervic Dilation Cervic Effacement Cervic Station Type Weight in lbs Pre/Post Dialysis Refused BP Diastolic BP Location Tested BP Systolic BP Type Fetus Heart Rate Present Fetus Movement Comments Flowsheet Date 11/19/2022 Langston Score Blood Edema Fundus Height Fundus Units Glucose Ketones Leukocytes Nitrite Labor Signs Protein Cervic Dilation Cervic Effacement Cervic Station neg trace none trace 1cm 70% -2 Type Weight in lbs Pre/Post Dialysis Refused Weight 130.830976170394 BP Diastolic BP Location Tested BP Systolic BP Type 72 110 Fetus Heart Rate Present A 130 Fetus Movement A Yes Comments Doing well. GBS done. NST re active, dopplers next. Plan IOL 39w. Flowsheet Date 11/26/2022 Langston Score Blood Edema Fundus Height Fundus Units Glucose Ketones Leukocytes Nitrite Labor Signs Protein Cervic Dilation Cervic Effacement Cervic Station Type Weight in lbs Pre/Post Dialysis Refused BP Diastolic BP Location Tested BP Systolic BP Type Fetus Heart Rate Present Fetus Movement Comments Flowsheet Date 11/26/2022 Langston Score Blood Edema Fundus Height Fundus Units Glucose Ketones Leukocytes Nitrite Labor Signs Protein Cervic Dilation Cervic Effacement Cervic Station Type Weight in lbs Pre/Post Dialysis Refused BP Diastolic BP Location Tested BP Systolic BP Type Fetus Heart Rate Present Fetus Movement Comments Flowsheet Date 11/26/2022 Langston Score Blood Edema Fundus Height Fundus Units Glucose Ketones Leukocytes Nitrite Labor Signs Protein Cervic Dilation Cervic Effacement Cervic Station neg trace none trace 1cm 70% -2 Type Weight in lbs Pre/Post Dialysis Refused Weight 130.745825966808 BP Diastolic BP Location Tested BP Systolic BP Type 69 107 Fetus Heart Rate Present A 140 Fetus Movement A Yes Comments Doing well, just so much pre ssure. IOL scheduled 39w. Mood fine, sleeps a lot though. still taking prozac. BPP 06/03, normal dopplers. Flowsheet Date 12/03/2022 Langston Score Blood Edema Fundus Height Fundus Units Glucose Ketones Leukocytes Nitrite Labor Signs Protein Cervic Dilation Cervic Effacement Cervic Station Type Weight in lbs Pre/Post Dialysis Refused BP Diastolic BP Location Tested BP Systolic BP Type Fetus Heart Rate Present Fetus Movement Comments Flowsheet Date 12/03/2022 Langston Score Blood Edema Fundus Height Fundus Units Glucose Ketones Leukocytes Nitrite Labor Signs Protein Cervic Dilation Cervic Effacement Cervic Station Type Weight in lbs Pre/Post Dialysis Refused BP Diastolic BP Location Tested BP Systolic BP Type Fetus Heart Rate Present Fetus Movement Comments Flowsheet Date 12/03/2022 Langston Score Blood Edema Fundus Height Fundus Units Glucose Ketones Leukocytes Nitrite Labor Signs Protein Cervic Dilation Cervic Effacement Cervic Station neg none none trace Type Weight in lbs Pre/Post Dialysis Refused Weight 128.451082126450 BP Diastolic BP Location Tested BP Systolic BP Type 63 106 Fetus Heart Rate Present A 130 Fetus Movement A Yes Comments Doing well, good FM. BPP . EFW 11%, AC 8%. IOL friday night. Menstrual History Last Menstrual Date Menses Monthly On Bcp Conception Prior Menses Frequency Hcg Plus Date Menarche Onset Age 0602/20/2022 Genetic Screening And Infection History Question Response Note Mental Retardation/Autism false Patient's Age Will Be 35 Years Or Older At Estim ated Date of Delivery false Thalassemia (Central African, Mongolian, Mediterranean, Or Background): MCV < 80 false Neural Tube Defect (Meningomyelocele, Spina Bifi da, Or Anencephaly) false Congenital Heart Defect false Down Syndrome false Álvaro-Sachs (eg, Religious, Cajun, Bolivian-Moody) f alse Pasquale Disease false Sickle Cell Disease Or Trait () false Hemophilia Or Other Blood Disorders false Muscular Dystrophy false Cystic Fibrosis false [place]'s Chorea false Intellectual Disability/Autism false If Yes, Was Person Tested For Fragile X? false Other Inherited Genetic Or Chromosomal Disorder false Maternal Metabolic Disorder (eg, Type 1 Diabetes , PKU) false Patient Or Baby's Father Had A Child With Defects Not Listed Above false Recurrent Loss, Or A Stillbirth false Medications (including Suppl ements, Vitamins, Herbs, OTC Drugs), Illicit/Recreational Drugs, Alcohol false If Yes, Agent(s) And Strength/Dosage false Any Other Genetic History false Live With Someone With TB Or Exposed To TB false Patient Or Partner Has History Of Genital Herpes false Rash Or Viral Illness Since Last Menstrual Perio d false History Of STD, Gonorrhea, Chlamydia, HPV, Syphi lis false Other Infection History false History of HIV false History of Hepatitis false Prior GBS-infected child false Hemoglobinopathy Or Carrier false Other Structural Defect false Recent Travel History Outside of Country false Delivery Information Delivery Date Delivery Type Labor Anesthesia Weeks Gestation Incision Type Labor Labor Length Hrs Delivered By Post Complications Tubal Sterilization Discharge Date Comments 3 Induce d Regional-Ep idural 39.1 false Yaima Lopez MD nausea, vomiting, iugr, douglas Discharge Information Feeding Method Contraceptive Method Maternal HG B and HCT Levels Ob Episode Information Episode Created Date Number of Fetuses Patient Bloodtype Patient rh Status Prepregnancy Weight lbs Domestic Partner Domestic Partner Phone Father Name Cable Respooler Status 02/24/20 24 1 O Positive 100 Shemar Andersonjeannette CLOSED Fetus Data First Name Last Name Admitted to NICU Weight (g) Sex Living Outcome Pediatric Complications Fetus ID Race Codes Race Delivery Type 2976.69 75 F true Prematur e [address] Vaginal Delivery Problems Problem Notes considering tubal ligation a fter - make sure pt signs consent Problem Name Start Date End Date Resolution Snomed Code Not e Anxiety disorder [id number] no meds History of growth retardation [id number] pregnan cy in lan testing at 32 weeks Asthma [id number] albuterol rarely Tuan Calculation Initial Tuan Date Initial Exam Date Initial Exam Provider Initial Ultrasound Date Last Menstrual Period Date Ultra Sound Weeks Gestation 09/09/2024 02/02/2024 02/02/2024 12/04/2023 9 Eighteen To Twenty Week Tuan Update Ultra Sound Date Fundal Height At Umbil Quickening Date Ultra Sound Latest Weeks Gestation Final Tuan Confirmed By Final Tuan Confirmed Date Final Tuan Date Ultra Sound Latest Days Gestation 0 [email or web address] 02/27/2024 09/09/19 25 0 Pre- Flowsheet Flowsheet Date 02/27/2024 Langston Score Blood Edema Fundus Height Fundus Units Glucose Ketones Leukocytes Nitrite Labor Signs Protein Cervic Dilation Cervic Effacement Cervic Station Type Weight in lbs Pre/Post Dialysis Refused BP Diastolic BP Location Tested BP Systolic BP Type Fetus Heart Rate Present Fetus Movement Comments Flowsheet Date 02/27/2024 Langston Score Blood Edema Fundus Height Fundus Units Glucose Ketones Leukocytes Nitrite Labor Signs Protein Cervic Dilation Cervic Effacement Cervic Station neg none Type Weight in lbs Pre/Post Dialysis Refused Weight 101.029737648658 BP Diastolic BP Location Tested BP Systolic BP Type 59 L arm 97 sitting Fetus Heart Rate Present Fetus Movement A No Comments reviewed US and wnl, discuss ed care, precautions and education, labs today, testing at 32 weeks, for hx IUGR f/u visit in 4 weeks Flowsheet Date 03/24/2024 Langsotn Score Blood Edema Fundus Height Fundus Units Glucose Ketones Leukocytes Nitrite Labor Signs Protein Cervic Dilation Cervic Effacement Cervic Station Type Weight in lbs Pre/Post Dialysis Refused 101.016180966366 BP Diastolic BP Location Tested BP Systolic BP Type 66 101 Fetus Heart Rate Present A 158 Fetus Movement A Yes Comments Patient states that is havin g some discharge, nausea and vomiting. reviewed precautions, edc letter and dental form given, f/u 4 weeks anatomy scan Flowsheet Date 04/21/2024 Langston Score Blood Edema Fundus Height Fundus Units Glucose Ketones Leukocytes Nitrite Labor Signs Protein Cervic Dilation Cervic Effacement Cervic Station Type Weight in lbs Pre/Post Dialysis Refused BP Diastolic BP Location Tested BP Systolic BP Type Fetus Heart Rate Present Fetus Movement Comments Flowsheet Date 04/21/2024 Langston Score Blood Edema Fundus Height Fundus Units Glucose Ketones Leukocytes Nitrite Labor Signs Protein Cervic Dilation Cervic Effacement Cervic Station Type Weight in lbs Pre/Post Dialysis Refused 109.902073976765 BP Diastolic BP Location Tested BP Systolic BP Type 72 108 Fetus Heart Rate Present Fetus Movement A Yes Comments Patient states that is havin g some back pain, discharge, nausea and vomiting. anatomy complete, doing well, precautions and education Flowsheet Date 05/19/2024 Langston Score Blood Edema Fundus Height Fundus Units Glucose Ketones Leukocytes Nitrite Labor Signs Protein Cervic Dilation Cervic Effacement Cervic Station Type Weight in lbs Pre/Post Dialysis Refused 113.311212341519 BP Diastolic BP Location Tested BP Systolic BP Type 64 L arm 100 sitting Fetus Heart Rate Present Fetus Movement Comments Patient c/o bug bites on leg , vomiting and discharge. reviewed precautions and risks, +FM, plan GCT at 28 weeks, rx nystatin/triamcinolone for rash on leg. Flowsheet Date 06/23/2024 Langston Score Blood Edema Fundus Height Fundus Units Glucose Ketones Leukocytes Nitrite Labor Signs Protein Cervic Dilation Cervic Effacement Cervic Station Type Weight in lbs Pre/Post Dialysis Refused BP Diastolic BP Location Tested BP Systolic BP Type Fetus Heart Rate Present Fetus Movement Comments Flowsheet Date 06/23/2024 Langston Score Blood Edema Fundus Height Fundus Units Glucose Ketones Leukocytes Nitrite Labor Signs Protein Cervic Dilation Cervic Effacement Cervic Station none Type Weight in lbs Pre/Post Dialysis Refused 115.468723042248 BP Diastolic BP Location Tested BP Systolic BP Type 66 103 Fetus Heart Rate Present Fetus Movement A Yes Comments Patient is having cramping, BH contractions and discharge. reviewed education and precautions efw 52% hx IUGR, plan f/u us at 32 weeks, discussed IUD vs tubal handout on mirena and paragard Flowsheet Date 07/07/2024 Langston Score Blood Edema Fundus Height Fundus Units Glucose Ketones Leukocytes Nitrite Labor Signs Protein Cervic Dilation Cervic Effacement Cervic Station none Type Weight in lbs Pre/Post Dialysis Refused 120.906406965828 BP Diastolic BP Location Tested BP Systolic BP Type 66 99 Fetus Heart Rate Present Fetus Movement A Yes Comments Patient states that is havin g some contractions and discharge. start testing 32 weeks, +FM iud handouts given, had contractions last week got terbutaline, doing better now, precautions and education reviewed Flowsheet Date 07/21/2024 Langston Score Blood Edema Fundus Height Fundus Units Glucose Ketones Leukocytes Nitrite Labor Signs Protein Cervic Dilation Cervic Effacement Cervic Station trace 30 cm Type Weight in lbs Pre/Post Dialysis Refused Weight 117.024548753133 BP Diastolic BP Location Tested BP Systolic BP Type 60 96 Fetus Heart Rate Present A 157 Present Fetus Movement A Yes Comments Patient is having some pain, contractions, discharge and swelling. education and precautions, ptl precautions, growth at next visit, remind to schedule preadmission start testing for hx iugr f/u 2 weeks Flowsheet Date 07/28/2024 Langston Score Blood Edema Fundus Height Fundus Units Glucose Ketones Leukocytes Nitrite Labor Signs Protein Cervic Dilation Cervic Effacement Cervic Station Type Weight in lbs Pre/Post Dialysis Refused BP Diastolic BP Location Tested BP Systolic BP Type Fetus Heart Rate Present Fetus Movement Comments Flowsheet Date 07/28/2024 Langston Score Blood Edema Fundus Height Fundus Units Glucose Ketones Leukocytes Nitrite Labor Signs Protein Cervic Dilation Cervic Effacement Cervic Station Type Weight in lbs Pre/Post Dialysis Refused Weight 122.558945230460 BP Diastolic BP Location Tested BP Systolic BP Type 65 100 Fetus Heart Rate Present Fetus Movement Comments Flowsheet Date 07/28/2024 Langston Score Blood Edema Fundus Height Fundus Units Glucose Ketones Leukocytes Nitrite Labor Signs Protein Cervic Dilation Cervic Effacement Cervic Station none Type Weight in lbs Pre/Post Dialysis Refused 122.402511462741 BP Diastolic BP Location Tested BP Systolic BP Type 65 100 Fetus Heart Rate Present Fetus Movement A Yes Comments Patient is having some pain, contractions, and some discharge with some blood. EFW 47%, cervix 1/80/-1 no contractions now, the other night they were constant, PTL precautions discussed steroids for lung maturity, to LD for injection now, to hospital if contractions return, schedule preadmit bpp 04/01 Flowsheet Date 08/04/2024 Langston Score Blood Edema Fundus Height Fundus Units Glucose Ketones Leukocytes Nitrite Labor Signs Protein Cervic Dilation Cervic Effacement Cervic Station Type Weight in lbs Pre/Post Dialysis Refused BP Diastolic BP Location Tested BP Systolic BP Type Fetus Heart Rate Present Fetus Movement Comments Flowsheet Date 08/04/2024 Langston Score Blood Edema Fundus Height Fundus Units Glucose Ketones Leukocytes Nitrite Labor Signs Protein Cervic Dilation Cervic Effacement Cervic Station Type Weight in lbs Pre/Post Dialysis Refused BP Diastolic BP Location Tested BP Systolic BP Type Fetus Heart Rate Present Fetus Movement Comments Flowsheet Date 08/04/2024 Langston Score Blood Edema Fundus Height Fundus Units Glucose Ketones Leukocytes Nitrite Labor Signs Protein Cervic Dilation Cervic Effacement Cervic Station Type Weight in lbs Pre/Post Dialysis Refused 119.543966746951 BP Diastolic BP Location Tested BP Systolic BP Type 67 L arm 96 sitting Fetus Heart Rate Present Fetus Movement A Yes Comments Patient is having contractio ns and discharge. reviewed precautions and education bpp 04/01 +FM nystatin for irritation from discharge. f/u one week Flowsheet Date 08/11/2024 Langston Score Blood Edema Fundus Height Fundus Units Glucose Ketones Leukocytes Nitrite Labor Signs Protein Cervic Dilation Cervic Effacement Cervic Station Type Weight in lbs Pre/Post Dialysis Refused BP Diastolic BP Location Tested BP Systolic BP Type Fetus Heart Rate Present Fetus Movement Comments Flowsheet Date 08/11/2024 Langston Score Blood Edema Fundus Height Fundus Units Glucose Ketones Leukocytes Nitrite Labor Signs Protein Cervic Dilation Cervic Effacement Cervic Station Type Weight in lbs Pre/Post Dialysis Refused Weight 121.673056978650 BP Diastolic BP Location Tested BP Systolic BP Type 61 98 Fetus Heart Rate Present Fetus Movement Comments Flowsheet Date 08/13/2024 Langston Score Blood Edema Fundus Height Fundus Units Glucose Ketones Leukocytes Nitrite Labor Signs Protein Cervic Dilation Cervic Effacement Cervic Station 3cm 80% -2 Type Weight in lbs Pre/Post Dialysis Refused Weight 119.004533390509 BP Diastolic BP Location Tested BP Systolic BP Type 70 107 Fetus Heart Rate Present A 136 Present Fetus Movement A Yes Comments Patient contractions and dis charge. stopped procardia yesterday occasional contractions, +FM precautions and education Flowsheet Date 09/17/2024 Langston Score Blood Edema Fundus Height Fundus Units Glucose Ketones Leukocytes Nitrite Labor Signs Protein Cervic Dilation Cervic Effacement Cervic Station Type Weight in lbs Pre/Post Dialysis Refused Weight 106.090847000282 BP Diastolic BP Location Tested BP Systolic BP Type 76 112 Fetus Heart Rate Present Fetus Movement Comments Menstrual History Last Menstrual Date Menses Monthly On Bcp Conception Prior Menses Frequency Hcg Plus Date Menarche Onset Age 0412/04/2023 false Genetic Screening And Infection History Question Response Note Medications (including Suppl ements, Vitamins, Herbs, OTC Drugs), Illicit/Recreational Drugs, Alcohol true pnv Delivery Information Delivery Date Delivery Type Labor Anesthesia Weeks Gestation Incision Type Labor Labor Length Hrs Delivered By Post Complications Tubal Sterilization Discharge Date Comments sourav 36.5 true Jin Nichole MD labor and delivery [id number] Discharge Information Feeding Method Contraceptive Method Maternal HG B and HCT Levels
--- OUTSIDE RECORDS SUMMARY | 2024-12-06 14:33 | XMS_ITS | Clinical Summary ---
Author Organization [facility] [employer] Address [address] [place] [address] Care Team Providers Care Child Protective Services Specialist Name Role Phone Darcie English PA-C Primary Care Provider + Source Comments [facility] [employer],non-owned Affiliates and Associated Physician Practices is amultiple site organization consisting of ambulatory clinics and hospital sitesin [place], [place], [place] and [place]. This disclosure is being madepursuant to the Care Everywhere program and may not contain all information available regarding this patient. Last updated 18.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 Gender Identity Not on file Sexual Orientation [...] patient's age to complete this topic Insurance [facility] SELF PAY NO INSURANCE Member Subscriber Plan / Payer (Ef fective for All Dates) Name:Geovanny Goodman Member ID:Not on file Relation to Subscriber:Not on file Name:GEOVANNY GOODMAN Subscriber ID:Not on file (Home) Address: [address] [place] [address] Payer ID:Not on file Group ID:Not on file Type:Self Pay Address: [place], [place] [facility] [place]ICAID - [place] [facility] Care Teams Child Protective Services Specialist Relationship Specialty Start Date End Date Darcie English PA-C [address] [place] [address] PCP - General 12/24/22
--- OUTSIDE RECORDS SUMMARY | 2024-12-06 14:33 | XMS_ITS | Clinical Summary ---
Author Organization [facility] Address [address] [place] [id number] Care Team Providers Care Archery Instructor Name Role Phone Unavailable Primary Care Provider [...]
== END 2024-12-06 14:05 | disposition home or self-care (01) ==
PROVIDERS: Emergency Provider Physician Assistant
DX: M94.0 Chondrocostal junction syndrome [Tietze] (principal); J45.909 Unspecified asthma, uncomplicated; M41.9 Scoliosis, unspecified; F17.290 Nicotine dependence, other tobacco product, uncomplicated
CPT/HCPCS: 71046; 71110; 99283

== ENCOUNTER 2025-02-07 12:28 | Outpatient (CLI) | payer OTHER, SELFPAY ==
--- OUTSIDE RECORDS SUMMARY | 2025-02-07 13:22 | XMS_ITS | Data Portability ---
Author Organization [facility] Address [address] [place] [address] [place] [address] Care Team Providers Care Personal Lines Insurance Agent Name Role Phone DAX RAWLS Primary Care Provider Assessment No assessment recorded. Plan of Treatment Reminders Order Date Submit Date Provider Last Modified By Organization Details Last Modified Time Details Appointments SURG Salpingec joseline 2024 08:30A Mihaela NICHOLE MD Not available Not available Not available SURG POST OP 2024 02:45P Mihaela NICHOLE MD Not available Not available Not available Lab None recorded. Referral None recorded. Procedures None recorded. Surgeries salpingec joseline, laparosco pic (SURG) [address], [facility] [address], [place], [address], 12/31/2024 09:56:58 hysterosc opy, with endometri al ablation (SURG) [address], [facility] [address], [place], [address], 12/30/2024 11:31:56 Imaging US, transvagi nal 2024 025 [email or web address] [place], [address], [address], [place], [address], 10/28/2024 20:26:16 Medication Orders Depo-Prov era 150 mg/mL intramusc ular syringe 2024 025 [email or web address] Not available 10/29/2024 17:34:13 Mirena 21 mcg/24 hr (up to 8 years) 52 mg intrauter ine device 2024 025 [email or web address] Not available 10/29/2024 17:52:09 Patient TargetsNo targets recorded. Patient InstructionsNo instructions recorded. Reason for Referral None Reported. Results Created Date Observation Date Name Description Value Unit Range Abnormal Flag Note LastModifiedBy Organization Detail LastModifiedTime 10/01/1910/01/2024 CT/GC AND TRICH OMONA S VAGIN ADORE (RRNA ), URINE chlamydia trachomatis, PCR Negati ve negati ve Not Available [facility] (Lab) [address], [place], [address], 10/02/2024 12:04:22 10/01/19 25 10/01/2024 CT/GC AND TRICH OMONA S VAGIN ADORE (RRNA ), URINE neisseria gonorrhoeae, PCR Negati ve negati ve Not Available [facility] (Lab) [address], [place], [address], 10/02/2024 12:04:22 10/01/19 25 10/01/2024 CT/GC AND TRICH OMONA S VAGIN ADORE (RRNA ), URINE trichomonas vaginalis ribosomal RNA (rrna) Negati ve negati ve Not Available [facility] (Lab) [address] [place], [address], 10/02/2024 12:04:22 10/01/19 25 10/01/2024 pregn meliton test, urine HCG negati ve Not Available [place] [address], [place], [address], 10/01/2024 09:57:39 10/29/1910/28/2024 US, trans vagin al No observ ation record ed. [email or web address] [place] [address], [place], [address], 10/28/2024 15:31:04 10/29/19 25 10/28/2024 US, trans vagin al No observ ation record ed. [email or web address] [address] [address], [place], [address], 10/28/2024 20:13:15 Result Notes None recorded. Problems Name Problem SNOMED Code Status Onset Date Resolution Date Notes Provider Name and Address Organization Details Recorded Time Pregnanc y 22069532 Completed 202112/16/2022 Phyllis Torres null, [facility] 5 19:04:31 Mixed anxiety and depressi ve disorder 747250615 Active no meds for 3 years. prozac. Cristo Dang null, [facility] 3 16:05:30 Asthma 652354999 Completed albutero l rarely Cristo Dang [facility], [facility] 3 16:05:30 Mixed anxiety and depressi ve disorder 674807544 Completed no meds for 3 years. prozac. Cristo Dang null, [facility] 3 16:05:29 Subchori onic hematoma 894065396 Completed Cristo Dang null, [facility] 3 16:05:29 Asthma 288258921 Active albutero l rarely Phyllis Torres null, [facility] 5 10:18:28 Nausea and vomiting 48074968 Completed zofran Cristo Dang null, [facility] 3 16:05:30 Uterine size for dates discrepa ncy 456072005 Completed 2022 Yaima Lopez MD [address], [place], [address], [place] [facility] 3 10:46:18 growth restrict ion 76601230 Completed IUGR 7% AC 4% at 34w, MFM 11% Cristo Dang null, [facility] 3 16:05:29 Pregnanc y 86132879 Completed 202308/31/2024 Phyllis Torres null, [facility] 5 19:04:31 Anxiety disorder 424818508 Completed no meds Phyllis Torres null, [facility] 5 10:18:28 History of growth retardat ion 6831709810 9108 Completed pregnanc y in 2022 plan antenata l testing at 32 weeks Phyllis Torres [facility], [facility] 5 10:18:28 Asthma 855468381 Completed albutero l rarely Phyllis Torres [facility], [facility] 5 10:18:28 Problem Notes None recorded. Procedures Surgical History Date Name Laterality Status Provider Name and Address Organization Details Recorded Time 5 IUD Removal completed Jin Nichole MD [address], [place], [address], [facility] 10/29/2024 17:03:11 5 IUD Removal completed Jin Nichole MD [address], [place], [address], [facility] 10/28/2024 14:55:02 5 IUD Insertion completed Jin Nichole MD [address], [place], [address], [facility] 10/28/2024 14:54:51 5 IUD Insertion completed Zahraa Barton CNM [address], [place], [address], [facility] 10/01/2024 10:21:29 4 Control Implant Removal completed Elizabeth Lamb [facility]- [address], [place], [address], [facility] 09/16/2023 16:36:58 3 Control Implant Insertion completed Yaima Lopez MD [address], [place], [address], [facility] 05/09/2023 13:18:32 3 Date of Last Pap Smear completed Merly Fontana [facility] 06/04/2023 17:19:25 3 procedure on ear completed Phyllis Torres [facility] 03/24/2024 10:32:42 Imaging Results None recorded. Procedure Notes None recorded. Medical Equipment None [...] completed Not Available Not Available Not Available lidocaine 5 % topical patch UNWRAP AND APPLY 1 PATCH TO SKIN DAILY ON MOST PAINFUL AREA FOR UP TO 12 HOURS 12/27 completed Not Available Not Available Not Available [...] Not Available Not Avai lable Not Available Tucks (debbie nesbitt) 50 % topical pads apply [...] Updated DateTime 10/28/2024 154.94 cm 20 kg/m2 43711.79 g [facility] 10/28/2024 11:47:33 Date Recorded Body height Body mass index (BMI) Body weight Systolic blood pressure Diastolic blood pressure Provider Name and Address Organization Details Last Updated DateTime 10/29/2024 154.94 cm 19.8 kg/m2 74722.2 g 120 mm[Hg] 82 mm[Hg] [facility] 16:37:55 Date Recorded Body height Body mass index (BMI) Body weight Systolic blood pressure Diastolic blood pressure Provider Name and Address Organization Details Last Updated DateTime 12/27/2024 154.94 cm 21 kg/m2 98290.75 g 109 mm[Hg] 71 mm[Hg] [facility] 12:07:34 Date Recorded Body height Body mass index (BMI) Body weight Systolic blood pressure Diastolic blood pressure Provider Name and Address Organization Details Last Updated DateTime 02/02/2025 154.94 cm 20.4 kg/m2 26742.98 g 114 mm[Hg] 76 mm[Hg] Merly Addi [facility] 15:36:06 Social History Question Answer Notes LastModified by Organizat ion Details LastModified Time Tobacco Smoking Status Never Smoker Tyesha Lyons [employer], [facility] 09/16/2023 16:16:09 Do You Have An Advance Directive? No [email or web address] Information n ot available 10/02/2022 If You Are , What Was Your Level Of Alcohol Consumption Prior To ? Occasional [email or web address] Information not available 04/21/2024 How Many Years Have You Consumed Alcohol? 0 [email or web address] Information not available 04/21/2024 Are You Blind Or Do You Have Difficulty Seeing? No [email or web address] Information n ot available 10/02/2022 What Is Your Level Of Caffeine Consumption? Moderate [email or web address] Information not available 04/21/2024 In The 14 Days Before Symptom Onset, Have You Had Close Contact With A Laboratory-confirm ed COVID-19 While That Case Was Ill? No [email or web address] Information n ot available 10/02/2022 In The 14 Days Before Symptom Onset, Have You Had Close Contact With A Person Who Is Under Investigation For COVID-19 While That Person Was Ill? No [email or web address] Information not available 10/02/2022 Have You Been To An Area Known To Be High Risk For COVID-19? No [email or web address] Information not available 10/02/2022 Are You Deaf Or Do You Have Serious Difficulty Hearing? No [email or web address] Information not available 10/02/2022 What Type Of Diet Are You Following? REGULAR [email or web address] Information n ot available 10/02/2022 What Is The Highest Grade Or Level Of School You Have Completed Or The Highest Degree You Have Received? [id number] [email or web address] Information not available 10/02/2022 Are There Any Guns Present In Your Home? No Information not available 10/02/2022 Do You Use Protection During Sex? No [email or web address] Information not available 10/02/2022 Do You Use Your Seat Belt Or Car Seat Routinely? Yes Information not available 10/02/2022 Do You Have Smoke And Carbon Monoxide Detectors In Your Home? Yes [email or web address] Information not available 04/21/2024 How Much Tobacco Do You Smoke? No [email or web address] Information not available 10/02/2022 Do You Use Sunscreen Routinely? No Information not available 10/02/2022 Has Tobacco Cessation Counseling Been Provided? No [email or web address] Information not available 09/16/2023 Have You Used IV Drugs? No [email or web address] Information not available 10/02/2022 Do You Have Difficulty Walking Or Climbing Stairs? No [email or web address] Information not available 09/16/2023 Sex: Unknown Functional Status Question Answer Note LastModified by Organizat ion Details LastModified Time Do you use any illicit or recreational drugs? No Information not available 04/19/2022 Do you or have you ever used any other forms of tobacco or nicotine? No [email or web address] Information not available 09/16/2023 What is your level of alcohol consumption? None Information not available 04/19/2022 Are you able to walk? YESWOREST [email or web address] Information not available 10/02/2022 Are you able to care for yourself? Yes [email or web address] Information n ot available 09/16/2023 Do you have difficulty dressing or bathing? No [email or web address] Information not available 09/16/2023 What is your exercise level? Occasional Information not available 04/21/2024 Mental Status Question Answer Note LastModified by Organization D etails LastModified Time Do you feel stressed (tense, restless, nervous, or anxious, or unable to sleep at night)? [id number] [email or web address] Information not available 04/21/2024 Family History Relationship Description Onset Age of this Age Resolved Age Notes LastModified by Organization Details LastModified Time Father Depressive disorder [email or web address] Not available 2021 10:16:43 Mother Depressive disorder [email or web address] Not available 2021 10:16:43 Mother Asthma [email or web address] Not available 10:16:54 Mother Anxiety disorder [email or web address] Not available 2021 10:17:04 Sister Depressive disorder Not available 10/02 17:02:38 Maternal Aunt Depressive disorder [email or web address] Not available 10/02 17:02:38 Medical History Condition [...] N Thrombophilias N Gynecological History Statement/Question Response Flow Heavy Date of Last Mammogram Date of LMP 01/30/2025 N On BCP's at Conception? 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 Y Menses Monthly Y Date of DEXA bone scan Age of first menstrual cycle 14 Date of Last Pap Smear 04/22/2023 Sexual Problems? N LMP Definite Desired Control Method Sterilizati on N Obstetrics History GPAL:G 2 P 1 1 0 2 Type Value Full Term 1 Premature 1 Living 2 Total 2 Past Encounters Encounter ID Performer Location Encounter Start Date Encounter Closed Date Diagnosis/Indication Diagnosis SNOMED-CT Code Diagnosis ICD10 Code Diagnosis Note [id number] MD Sam Low [address] [address] 04/18/2022 12:20:20 04/18/2022 13:03:22 Uncertain viability of 570974034 O36.80X0 Z3A.01 [id number] MD Sam Low [address],[place] [address] 04/19/2022 10:01:17 04/19/2022 17:23:28 Uncertain viability of 681800033 O36.80X0 Z3A.01 Mixed anxi ety and depressive disorder 294759432 F41.8 Asthma 598914083 J45.90 9 test positive 391586758 Z32.01 Venereal d isease screening 329798813 Z11.3 [id number] MD Sam Low [address],[place] [address] 04/30/2022 13:39:26 05/01/2022 15:21:11 Uncertain viability of 022604727 O36.80X0 Z3A.01 [id number] Yaima Lopez MD [place] [address],[place] [address] 05/01/2022 13:51:54 07/20/2022 20:54:20 [id number] Yaima Lopez MD [place] [address],[place] [address] 06/04/2022 10:37:58 06/04/2022 14:09:16 screening 994380106 Z36.82 [id number] Yaima Lopez MD [place] [address],[place] [address] 06/04/2022 10:39:16 06/05/2022 16:15:38 Routine care 301687036 Z34.91 Mixed anxi ety and depressive disorder 058673760 F41.8 [id number] MD Sam Low [address],[place] [address] 07/05/2022 14:12:50 07/06/2022 09:41:43 Nausea and vomiting 90085665 R11.2 Depressive disorder 3548 9007 F32.A Mixed anxi ety and depressive disorder 732080406 F41.8 [id number] Yaima Lopez MD [place] [address],[place] [address] 07/31/2022 11:23:13 07/31/2022 12:24:53 screening for malformation 412801475 Z36.3 [id number] Yaima Lopez MD [place] [address],[place] [address] 07/31/2022 11:23:50 07/31/2022 14:27:56 Mixed anxiety and depressive disorder 288262804 F41.8 Routine an tenatal care 861812405 Z34.91 screening 2437 90183 Z36.89 [id number] Yaima Lopez MD [place] [address],[place] [address] 09/02/2022 09:57:33 09/02/2022 10:32:37 screening 793372224 Z36.2 [id number] MD Maria E [place] [address],[place] [address] 09/02/2022 09:59:34 09/02/2022 13:23:54 Routine care 329597526 Z34.91 Mixed anxi ety and depressive disorder 570172493 F41.8 Nausea and vomiting 1693 2000 R11.2 [id number] Yaima Lopez MD [place] [address],[place] [address] 09/24/2022 10:53:35 09/24/2022 11:57:17 Routine care 656596288 Z34.91 Uterine si ze for dates discrepancy 054817242 O26.849 [id number] Jin Nichole MD [place] [address],[place] [address] 10/02/2022 15:45:17 10/02/2022 16:53:54 Uterine size for dates discrepancy 339372922 O26.849 Z3A.29 [id number] [facility] [address],[place] [address] 10/02/2022 15:45:38 10/02/2022 18:01:11 Routine care 606480039 Z34.93 [id number] Yaima Lopez MD [place] [address],[place] [address] 10/22/2022 11:40:27 10/22/2022 12:37:41 Routine care 781667308 Z34.91 [id number] MD Sam Low [address],[place] [address] 11/05/2022 09:58:38 11/05/2022 11:05:20 Small for gestational age fetus 995261489 O36.5999 [id number] MD Sam Low [address],[place] [address] 11/05/2022 09:59:01 11/05/2022 11:20:09 growth restriction 02454441 O36.5999 [id number] MD Sam Low [address],[place] [address] 11/05/2022 11:05:30 11/05/2022 12:09:51 growth restriction 85910756 O36.5999 [id number] MD Sam Low [address],[place] [address] 11/12/2022 09:23:06 11/12/2022 10:18:18 condition affecting obstetrical care of mother 654888061 O36.5999 Z3A.35 [id number] MD Sam Low [address],[place] [address] 11/12/2022 09:23:35 11/12/2022 10:39:55 growth restriction 44621233 O36.5999 [id number] MD Sam Low [address],[place] [address] 11/12/2022 09:23:49 11/14/2022 10:58:12 growth restriction 75439534 O36.5999 Routine an tenatal care 164433614 Z34.91 [id number] MD Sam Low [address],[place] [address] 11/19/2022 09:31:11 11/19/2022 10:30:17 growth restriction 75658871 O36.5999 [id number] MD Sam Low [address],[place] [address] 11/19/2022 09:32:09 11/21/2022 13:11:59 growth restriction 12785710 O36.5999 [id number] MD Sam Low [address],[place] [address] 11/19/2022 10:13:58 11/19/2022 11:02:48 Poor growth affecting management 082795837 O36.5930 Z3A.36 [id number] MD Sam Low [address],[place] [address] 11/26/2022 09:47:00 11/26/2022 15:07:11 condition affecting obstetrical care of mother 813252428 O36.93X0 Z3A.37 [id number] MD Maria E [place] [address],[place] [address] 11/26/2022 10:01:50 11/26/2022 11:18:54 growth restriction 27373974 O36.5999 [id number] Yaima Lopez MD [place] [address],[place] [address] 11/26/2022 10:53:45 11/26/2022 11:34:32 growth restriction 66325804 O36.5999 Mixed anxi ety and depressive disorder 710381543 F41.8 [id number] MD Sam Low [address],[place] [address] 12/03/2022 09:21:22 12/03/2022 10:18:51 Poor growth affecting management 563955415 O36.5930 Z3A.38 [id number] MD Sam Low [address],[place] [address] 12/03/2022 09:22:17 12/03/2022 11:20:08 growth restriction 87214329 O36.5999 Uterine si ze for dates discrepancy 715704718 O26.849 Z3A.29 [id number] MD Sam Low [address],[place] [address] 12/03/2022 09:22:30 12/04/2022 18:36:35 growth restriction 51413401 O36.5999 [id number] Yaima Lopez MD [place] [address],[place] [address] 01/06/2023 10:23:12 01/06/2023 11:49:03 care 830908978 Z39.2 [id number] Yaima Lopez MD [place] [address],[place] [address] 04/22/2023 14:15:07 04/23/2023 10:37:28 Gynecologic examination 81841329 Z01.419 Z11.3 Z11.8 Contracept ion care management 048830410 Z30.9 [id number] Yaima Lopze MD [place] [address],[place] [address] 05/09/2023 11:51:46 05/09/2023 13:20:23 Contraception care management 112426803 Z30.9 Implantati on of subcutaneous contraceptive 875912780 Z30.9 [id number] Elizabeth Lamb [facility] [address],[place] [address] 06/04/2023 17:08:13 06/04/2023 17:35:21 Urinary symptoms 275469322 R39.9 Urine culture sentVERY Prominent urinary sx'sRx [...] counseling and review of plan of care. [id number] Elizabeth Lamb [facility] [address],[place] [address] 09/16/2023 16:15:37 09/16/2023 16:51:14 Contraception care management 293414359 Z30.9 Discussed all control options in great [...] SPENT ON PROCEDURE. Removal of subcutaneous contraceptive 958378216 Z30.46 Removal site was cleansed with betadine and 3cc of lidocaine used for anesthesia . Device was removed in normal fashion without difficulty . Steri stips and pressure bandage placed. External hemorrhoids 239 64660 K64.4 Small pea size ext hemorrhoid seen on exam.Likel y the pink tinge she is having with wipe on days she had BM and did not take stool softners.U se softners dailyIncre ase fiber and water [id number] Jin Nichole MD [place] [address],[place] [address] 01/08/2024 14:18:16 01/08/2024 14:40:19 screening 526904589 Z36.87 O36.80X0 Z3A.01 [id number] Jin Nichole MD [place] [address],[place] [address] 01/15/2024 14:50:04 01/15/2024 15:46:53 Uncertain viability of 170123007 O36.80X0 Z3A.01 [id number] Jin Nichole MD [place] [address],[place] [address] 02/02/2024 14:47:55 02/02/2024 15:40:06 test positive 386063506 Z32.01 [id number] Jin Nichole MD [place] [address],[place] [address] 02/02/2024 14:48:22 02/03/2024 02:40:43 Amenorrhea 63423520 N91.2 this patient is a 23year-old female [...] begin routine care at her next visit. [id number] Zahraa Barotn CNM [place] [address],[place] [address] 02/27/2024 09:05:39 02/27/2024 10:07:31 Gestation period, 12 weeks 05120362 Z3A.12 [id number] Jin Nichole MD [place] [address],[place] [address] 02/27/2024 09:04:50 02/27/2024 09:42:41 screening 450348238 Z3A.01 Z36.82 Z3A.12 [facility] [address],[place] [address] 03/24/2024 10:19:22 03/24/2024 10:49:25 Gestation period, 15 weeks 9136397 Z3A.15 continue vitamin [id number] Jin Nichole MD [place] [address],[place] [address] 04/21/2024 09:37:15 04/21/2024 10:39:26 screening for malformation 704767080 Z36.3 Z3A.19 [id number] Zahraa Barton CNM [place] [address],[place] [address] 04/21/2024 09:37:33 04/21/2024 11:40:48 Gestation period, 19 weeks 82790301 Z3A.19 continue vitamin [id number] [facility] [address],[place] [address] 05/19/2024 09:40:07 05/19/2024 10:58:07 Routine care 893897238 Z34.93 continue vitamin Pruritic rash 86390366 L 28.2 [id number] Jin Nichole MD [place] [address],[place] [address] 06/23/2024 09:26:27 06/23/2024 10:08:07 History of growth retardation 9184788612 9108 Z87.59 Z3A.28 [id number] [facility] [address],[place] [address] 06/23/2024 09:26:45 06/23/2024 10:30:55 Gestation period, 28 weeks 97206071 Z3A.28 continue vitamin [id number] [facility] [address],[place] [address] 07/07/2024 09:42:33 07/07/2024 10:21:19 Routine care 907317505 Z34.93 continue vitamin [id number] Zahraa Barton CNM [place] [address],[place] [address] 07/21/2024 10:45:03 07/21/2024 12:08:57 Gestation period, 32 weeks 2556718 Z3A.32 continue vitamin [id number] Jin Nichole MD [place] [address],[place] [address] 07/28/2024 09:02:55 07/28/2024 09:35:18 Past history of small for gestational age baby 010709199 Z87.59 Z3A.33 [id number] Jin Nichole MD [place] [address],[place] [address] 07/28/2024 09:05:04 07/29/2024 15:23:22 growth restriction 05785576 O36.5999 [id number] [facility] [address],[place] [address] 07/28/2024 09:05:27 07/28/2024 10:33:08 Gestation period, 33 weeks 06089164 Z3A.33 continue vitamin [id number] Jin Nichole MD [place] [address],[place] [address] 08/04/2024 09:52:28 08/04/2024 14:04:12 35476670 Z33.1 grow th restriction 41080209 O36.5999 Z3A.34 [id number] MD Maria E [place] [address],[place] [address] 08/04/2024 09:52:43 08/04/2024 11:08:20 Past history of small for gestational age baby 924474130 Z87.59 Z3A.34 [id number] [facility] [address],[place] [address] 08/04/2024 09:53:10 08/04/2024 11:42:47 Gestation period, 34 weeks 84608371 Z3A.34 continue vitamin Vulval irritation 958987 003 N90.89 [id number] Jin Nichole MD [place] [address],[place] [address] 08/11/2024 11:58:44 08/11/2024 12:34:40 Past history of small for gestational age baby 214278120 Z87.59 Z3A.35 [id number] BING FARAH MD [place] [address] [place] [address] 08/11/2024 11:58:58 08/12/2024 10:57:10 growth restriction 52927430 O36.5999 [id number] [facility] [address] [place] [address] 08/13/2024 09:54:41 08/13/2024 10:51:29 Gestation period, 36 weeks 79701648 Z3A.36 Small for gestational age fetus 794959285 O36.5999 [id number] Zahraa Barton [facility] [address],[place] [address] 09/17/2024 10:00:43 09/17/2024 11:19:42 care 273364842 Z39.2 f/u 2 weeks iud placement, abstain until placement [id number] Zahraa Barton [facility] [address],[place] [address] 10/01/2024 09:40:29 10/01/2024 10:55:09 Insertion of intrauterine contraceptive device 44441980 Z30.430 [id number] Jin Nichole MD [place] [address],[place] [address] 10/28/2024 10:43:33 10/28/2024 11:45:19 Mechanical complication of intrauterine contraceptive device 883290020 T83.39XA [id number] Jin Nichole MD [place] [address],[place] [address] 10/28/2024 11:37:07 10/28/2024 14:58:51 Insertion of intrauterine contraceptive device 08660694 Z30.430 Contracept ion care management 023108058 Z30.9 IUD was removed and replaced without complicati ons. She will have a ultrasound to confirm placement. [id number] MD Sam Condon [address],[place] [address] 10/29/2024 15:49:59 11/01/2024 09:53:07 Contraception care management [id number] Z30.9 IUD was removed without complicati ons. She tollerated it well [id number] MD Sam Condon [address],[place] [address] 12/27/2024 11:28:29 12/27/2024 13:49:53 Sterilization education 691795242 Z30.09 Menorrhagia 574383727 N9 2.0 This patient is a 24-year-ol d female presents for heavy vaginal bleeding. She has longstandi ng very heavy bleeding. Her menses are regular. However, they require double protection . Patient has accidents, getting blood on her bedding and clothing. Is affected work. She changes a pad or tampon every hour. She leaks blood around the pad and tampon. This bleeding has a profound impact on her quality of life and her activities of daily living.Thi s patient presents for female sterilizat ion. The patient desires tubal ligation. She is certain that she no longer wants to be fertile. We discussed sterilizat ion in detail. I described the procedure to the patient in detail. I informed her that we remove the tubes entirely in a. We discussed alternativ es. The patient knows they are highly effective reversible options. She understand s that the Salpingect coleman n is permanent. We discussed failure rate. She understand s there is reported failure rate to salpingect coleman.. As described salpingect coleman and removal of the entire tube. I discussed the reduction in ovarian cancer risk. The patient understand s and is ready to proceed with laparoscop ic bilateral Salpingect coleman. We discussed treatment options in detail. We agreed to perform endometria l ablation with laparoscop ic bilateral salpingect coleman. I spent over 40 minutes on her care in total. The patient understand s the procedure. The procedure was described to the patient in great detail. the patient also understand s the risks. The risks were also explained in detail. She understand s that injuries May occur during surgery. She understand s these injuries can result in hospitaliz ation, more surgery, and severe illness. She understand s there is risk of hemorrhage and infection. [id number] Jin Nichole MD [place] [address] [address] 02/02/2025 14:41:56 02/02/2025 16:06:16 Menometrorrhagia 843614986 N92.1 Unwanted fertility 96766 5005 Z30.09 this patient is a 24-year-ol d female with severe menorrhagi a and unwanted fertility. We have agreed to perform laparoscop ic bilateral salpingect coleman and endometria l ablation with hysterosco py. She understand s the risks, benefits, and alternativ es. She has completed the informed consent process and is ready to proceed. Health Concerns Section Related Observation LastModified by Organization Detai ls LastModified Time None Recorded Concern Status LastModified by Organization Details LastModified Time None Recorded Advance Directives Directive N: Payers Insurance Date Sequence Insurance Name Policy Number Policy Serrato Covered Member ID Serrato Member ID Guarantor Name 02/06/2025 1 [facility] - DOS ON OR AFTER 21 (MEDICAID REPLACEMENT - HMO) Anu Rivera [id number] Anu Rivera Notes Date Note Type Note Provider Name and Address Organization Details Recorded Time 10/28/2024 text/html 24-year-old fema le with malpositioned IUD. To have IUD removal and replacement. The procedure was explained to the patient in detail. She understands the procedure. She understands the risks, benefits, and alternatives. She has completed the informed consent process and is ready to proceed. Jin Nichole MD [address], [place], [address], [facility] 10/28/2024 14:55:58 10/29/2024 text/html 24 yo female presents for IUD removal. The procedure was explained to the patient in detail. She understands the procedure. She understands the risks, benefits, and alternatives. She has completed the informed consent process and is ready to proceed. Merly irving, [facility] 10/29/2024 17:27:02 12/27/2024 text/html This patient is a 24-year-old female presents for heavy vaginal bleeding. She has longstanding very heavy bleeding. Her menses are regular. However, they require double protection. Patient has accidents, getting blood on her bedding and clothing. Is affected work. She changes a pad or tampon every hour. She leaks blood around the pad and tampon. This bleeding has a profound impact on her quality of life and her activities of daily living.This patient presents for female sterilization. The patient desires tubal ligation. She is certain that she no longer wants to be fertile. We discussed sterilization in detail. I described the procedure to the patient in detail. I informed her that we remove the tubes entirely in a. We discussed alternatives. The patient knows they are highly effective reversible options. She understands that the Salpingectomy n is permanent. We discussed failure rate. She understands there is reported failure rate to salpingectomy.. As described salpingectomy and removal of the entire tube. I discussed the reduction in ovarian cancer risk. The patient understands and is ready to proceed with laparoscopic bilateral Salpingectomy. We discussed treatment options in detail. We agreed to perform endometrial ablation with laparoscopic bilateral salpingectomy. I spent over 40 minutes on her care in total. The patient understands the procedure. The procedure was described to the patient in great detail. the patient also understands the risks. The risks were also explained in detail. She understands that injuries May occur during surgery. She understands these injuries can result in hospitalization, more surgery, and severe illness. She understands there is risk of hemorrhage and infection. Jin Nichole MD [address], [place], [address], [facility] 12/27/2024 13:31:09 02/02/2025 text/html this patient is a 24-year-old female with severe menorrhagia and unwanted fertility. We have agreed to perform laparoscopic bilateral salpingectomy and endometrial ablation with hysteroscopy. She understands the risks, benefits, and alternatives. She has completed the informed consent process and is ready to proceed. The patient understands the procedure. The procedure was described to the patient in great detail. the patient also understands the risks. The risks were also explained in detail. She understands that injuries May occur during surgery. She understands these injuries can result in hospitalization, more surgery, and severe illness. She understands there is risk of hemorrhage and infection. Jin Nichole MD [address], [place], [address], [facility] 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 prozac. Subchorionic hematoma 65854695 4 Nausea and vomiting 48243790 zofran Tuan Calculation Initial Tuan Date Initial [...] Date Ultra Sound Latest Days Gestation 0 [email or web address] 06/04/2022 12/16/19 23 0 Pre- Flowsheet Flowsheet Date 05/01/2022 Langston Score Blood [...] Weight in lbs Pre/Post Dialysis Refused Weight 105.035819749941 BP Diastolic BP Location Tested BP Systolic [...] Weight in lbs Pre/Post Dialysis Refused Weight 108.089113281827 BP Diastolic BP Location Tested BP Systolic [...] Weight in lbs Pre/Post Dialysis Refused Weight 114.041070613776 BP Diastolic BP Location Tested BP Systolic [...] Weight in lbs Pre/Post Dialysis Refused Weight 115.212290302158 BP Diastolic BP Location Tested BP Systolic [...] Weight in lbs Pre/Post Dialysis Refused Weight 119.630135510911 BP Diastolic BP Location Tested BP Systolic [...] Weight in lbs Pre/Post Dialysis Refused Weight 118.677526696646 BP Diastolic BP Location Tested BP Systolic [...] Weight in lbs Pre/Post Dialysis Refused Weight 126.70341434328 BP Diastolic BP Location Tested BP Systolic [...] Weight in lbs Pre/Post Dialysis Refused Weight 127.931758946700 BP Diastolic BP Location Tested BP Systolic [...] Weight in lbs Pre/Post Dialysis Refused Weight 127.259823100640 BP Diastolic BP Location Tested BP Systolic [...] Weight in lbs Pre/Post Dialysis Refused Weight 130.628145689647 BP Diastolic BP Location Tested BP Systolic [...] Weight in lbs Pre/Post Dialysis Refused Weight 130.264909597770 BP Diastolic BP Location Tested BP Systolic [...] Weight in lbs Pre/Post Dialysis Refused Weight 128.271244961531 BP Diastolic BP Location Tested BP Systolic [...] Estim ated Date of Delivery false Thalassemia (Turkish, Lebanese, Mediterranean, Or Background): MCV < 80 false Neural Tube Defect (Meningomyelocele, Spina Bifi da, Or Anencephaly) false Congenital Heart Defect false Down Syndrome false Álvaro-Sachs (eg, Latter Day, Cajun, Maori-Belarusian) f alse Pasquale Disease false Sickle Cell Disease Or Trait () false Hemophilia Or Other Blood Disorders false Muscular Dystrophy false Cystic Fibrosis false Nuckolls's Chorea false Intellectual Disability/Autism false If Yes, [...] Domestic Partner Domestic Partner Phone Father Name American Indian Studies Professor Status 02/24/20 24 1 O Positive 100 Shemar Ashleigh CLOSED Fetus Data First Name Last Name Admitted to NICU Weight (g) Sex Living Outcome Pediatric Complications Fetus ID Race Codes Race Delivery Type 2976.69 75 F true Prematur e 15154 Vaginal Delivery Problems Problem Notes considering tubal ligation a fter - make sure pt signs consent Problem Name Start Date End Date Resolution Snomed Code Not e Anxiety disorder 647602750 no meds History of growth retardation 43299424263894 pregnan cy in lan testing at 32 weeks Asthma 222650306 albuterol rarely Tuan Calculation Initial Tuan Date [...] Date Ultra Sound Latest Days Gestation 0 02/27/2024 09/09/19 25 0 Pre- Flowsheet Flowsheet [...] Weight in lbs Pre/Post Dialysis Refused Weight 101.475767482472 BP Diastolic BP Location Tested BP Systolic BP Type 59 L arm 97 sitting Fetus Heart Rate Present Fetus Movement A No Comments reviewed US and wnl, discuss ed care, precautions and education, labs today, testing at 32 weeks, for hx IUGR f/u visit in 4 weeks Flowsheet Date 03/24/2024 Langston Score Blood Edema Fundus Height Fundus Units Glucose Ketones Leukocytes Nitrite Labor Signs Protein Cervic Dilation Cervic Effacement Cervic Station Type Weight in lbs Pre/Post Dialysis Refused 101.128632913350 BP Diastolic BP Location Tested BP Systolic [...] Type Weight in lbs Pre/Post Dialysis Refused 109.642989530730 BP Diastolic BP Location Tested BP Systolic [...] Type Weight in lbs Pre/Post Dialysis Refused 113.523802174186 BP Diastolic BP Location Tested BP Systolic [...] Type Weight in lbs Pre/Post Dialysis Refused 115.114660897668 BP Diastolic BP Location Tested BP Systolic [...] Type Weight in lbs Pre/Post Dialysis Refused 120.668523544506 BP Diastolic BP Location Tested BP Systolic [...] Weight in lbs Pre/Post Dialysis Refused Weight 117.508085011025 BP Diastolic BP Location Tested BP Systolic [...] Weight in lbs Pre/Post Dialysis Refused Weight 122.876713710020 BP Diastolic BP Location Tested BP Systolic BP Type 65 100 Fetus Heart Rate Present Fetus Movement Comments Flowsheet Date 07/28/2024 Langston Score Blood Edema Fundus Height Fundus Units Glucose Ketones Leukocytes Nitrite Labor Signs Protein Cervic Dilation Cervic Effacement Cervic Station none Type Weight in lbs Pre/Post Dialysis Refused 122.563302435421 BP Diastolic BP Location Tested BP Systolic [...] Type Weight in lbs Pre/Post Dialysis Refused 119.808057362424 BP Diastolic BP Location Tested BP Systolic [...] Weight in lbs Pre/Post Dialysis Refused Weight 121.959883683252 BP Diastolic BP Location Tested BP Systolic BP Type 61 98 Fetus Heart Rate Present Fetus Movement Comments Flowsheet Date 08/13/2024 Langston Score Blood Edema Fundus Height Fundus Units Glucose Ketones Leukocytes Nitrite Labor Signs Protein Cervic Dilation Cervic Effacement Cervic Station 3cm 80% -2 Type Weight in lbs Pre/Post Dialysis Refused Weight 119.028636107946 BP Diastolic BP Location Tested BP Systolic [...] Weight in lbs Pre/Post Dialysis Refused Weight 106.350162485778 BP Diastolic BP Location Tested BP Systolic [...] true Jin Nichole MD labor and delivery [id number] Discharge Information Feeding Method Contraceptive Method Maternal HG B and HCT Levels
--- OUTSIDE RECORDS SUMMARY | 2025-02-07 13:22 | XMS_ITS | Patient Health Record ---
Author Organization [facility] [employer] 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) 10/05/19 14 Active confirmed ([facility] ) Added By: Una Honeycutt Plan Of Treatment No Information Insurance Providers Payer Name Payer Address Payer Phone Subscriber Number Group Number Insured Name Patient Relationship to Insured Coverage Start Date Coverage End Date Medicaid [facility] [address] [place], [place] [id number] Anu Moss Self - patient is the insured 5 Medicaid Nonbillable [address] [place], [place] [id number] Yuliya Macias Parent 3 Medical (General) History Medical History History ICD Code Med_System: Psychiatric; Disease: ADD/AD HD Surgical History Surgery Date(Month/Year) PET placement 2001 Hospitalization History Reason Date(Month/Year)
--- OUTSIDE RECORDS SUMMARY | 2025-02-07 13:22 | XMS_ITS | Clinical Summary ---
Author Organization [facility] [employer] Address [address] [place] [address] Care Team Providers Care Ribbon Cutter Name Role Phone Darcie English PA-C Primary Care Provider + Source Comments [facility] [employer],non-owned Affiliates and Associated Physician Practices is amultiple site organization consisting of ambulatory clinics and hospital sitesin [place], [place], [place] and [place]. This disclosure is being madepursuant to the Care Everywhere program and may not contain all information available regarding this patient. Last updated 18.[facility] [employer] Allergies No known active allergies Medications * [...] on file Legal Sex Female 3:48 PM [place] Gender Identity Not on file Sexual Orientation [...] 11:59 AM CDT Height 153.5 cm (5' 0.43) 04/27/2019 11:59 AM C DT Body Mass Index 22.96 04/27/2019 11:59 AM CDT Plan of Treatment Health Maintenance Due Date Last Done Comments HPV VACCINE (1 - 3-dose series) 2017 CHLAMYDIA/GONORRHEA SCREENING 2018 MENINGOCOCCAL (Group B) VACCINE SHARED DECISION-MAKING (1 of 2 - Standard) 2018 HEPATITIS C SCREENING 02/14/2020 DTAP/TDAP/TD VACCINES (1 - Tdap) 2021 HEPATITIS B VACCINE (1 of 3 - 19+ 3-dose series) 2021 PAP SMEAR 2023 COVID-19 VACCINE (1 - 2023-25 season) 2024 DEPRESSION SCREENING 08/25/2024 INFLUENZA VACCINE [...] patient's age to complete this topic Insurance [facility] SELF PAY NO INSURANCE Member Subscriber Plan / Payer (Ef fective for All Dates) Name:Geovanny Goodman Member ID:Not on file Relation to Subscriber:Not on file Name:GEOVANNY GOODMAN Subscriber ID:Not on file (Home) Address: [address] [place] [address] Payer ID:Not on file Group ID:Not on file Type:Self Pay Address: [place], [place] [facility] [place] [facility] Care Teams Ribbon Cutter Relationship Specialty Start Date End Date Darcie English PA-C [address] [place] [address] PCP - General 12/24/22
[2025-02-07 14:36] LABS: Hematocrit 38.5 % (37.0-47.0); Hemoglobin 12.1 g/dL (12.0-15.0)
== END 2025-02-07 12:29 | disposition home or self-care (01) ==
LOC: ANHSURGERY 12:32
PROVIDERS: Anesthesiology; Visit Provider Obstetrics & Gynecology
DX: D64.9 Anemia, unspecified (principal)
CPT/HCPCS: 36415; 85014; 85018

== ENCOUNTER 2025-02-09 01:54 | Day surgery (SDC) | payer OTHER, SELFPAY ==
--- NOTE | 2025-02-03 15:10 | SUR.PREOP ---
Report to the Outpatient Waiting Room, entrance under the green pavilion located off [facility], at time 6:30a.m.on date 02/09/2025. Planned Procedure Time: 8:30a.m..? Time changes happen often and if your time is changed the preop area will call you the afternoon before. - You and your visitor will be asked to self-screen and do not enter if you have any COVID symptoms. Please call surgeon if you need to reschedule. - A mask is optional within the hospital at this time. Patients may have clear liquids (water, carbonated beverages, clear teas, apple juice) until 3 hours prior to surgery with a maximum of 20 ounces. - No food from midnight until time of surgery and no smoking, or chewing tobacco (or any form of nicotine). No chewing gum, candy or mints. - Infants may have breast milk until 4 hours before surgery, infant formula 6 hours prior to surgery. - Children will be allowed to drink immediately following surgery.? If applicable, please bring a bottle or sippy cup to assist with drinking. Juice, water, soda, and popsicles are readily available.? For infants on formula, please bring formula the day of surgery.? Pacifiers are allowed. Take only the following medications with a SIP of water on the morning of surgery: N/A DO NOT STOP ANY OF YOUR OTHER PRESCRIPTION MEDICATIONS PRIOR TO SURGERY EXCEPT THE FOLLOWING Hold all vitamins and supplements for 3 days per anesthesiologist. Medications to discontinue per physician Iron Date to take last dose 02/06/2025 /Please no make-up, nail indonesian, hairspray, perfume, deodorant, or body powder the day of surgery.? No jewelry (including any body piercings) or valuables the day of surgery, leave them at home.? Please take a shower or bath the night before, or the morning of, surgery with an antibacterial soap.? Wear comfortable, loose fitting clothing.? Children are encouraged to wear pajamas. - Jewelry must be removed prior to entering the operating room.? Rings and piercings that are not removed may be cut off. - The hospital will not accept responsibility for valuables.? - Please leave all valuables, including medications, at home the day of surgery. If you are going home after surgery, a licensed pole truck driver must drive you home.? - NO public transportation without another adult if you receive anesthesia. - We recommend that an adult stay with you for 24 hours following discharge. - We also recommend that you do not drive, make important decision, drink alcoholic beverages, or take any drugs that were not prescribed by your health care provider for at least 24 hours after your discharge time. For Pediatric surgeries, we recommend two adults accompany the child home. Follow any additional instructions given to you from your surgeon. Telephone instructions given to Anu Moss and asked if any additional questions and then verbalized understanding. Patient advised to call surgeon office or pre surgery nurse liaison [phone] if any additional questions.
--- NOTE | 2025-02-08 14:29 | WPDANESEPPF ---
Anes - Initial Pre Proc Eval Procedure: Operation Date: 02/09/25 08:30 Proposed Procedures p Hysteroscopy with Linda Endometrial Ablation, Laparoscopic Bilateral Salpingectomy - Jin Nichole MD Date/Time: 02/08/25 14:29 Surgeon: Jin Nichole MD Pre Op Diagnosis: Menorrhagia with reg cycle, desire Sterilization Patient Data Age: 24 Gender: F Height: 1.56 m Weight: 48.9 kg Allergies Allergy/AdvReac Type Severity Reaction Status Date / Time No Known Allergies Allergy Mild Verified 02/09/25 07:41 Home Medications ?Medication ?Instructions ?Recorded ?Confirmed ?Type ferrous sulfate 325 mg (65 mg 325 mg PO DAILY 08/05/24 02/09/25 History iron) tablet Patient hx anesthesia problems: none Family hx anesthesia problems: none Results Review: All pre-operative results and documents have been reviewed as part of the pre-operative evaluation. [facility] Past Medical History Medical History Multiple sclerosis (Unknown) ADD (attention deficit disorder) Scoliosis Asthma Anxiety and depression Migraine Migraine Family History Family History Mother Hypertension Bipolar 1 disorder Grandparent High cholesterol Bipolar 1 disorder Father Bipolar 1 disorder Social History Social History Smoking status: Current every day smoker Tobacco type: e-cigarettes/vaping Additional smoking assessment comments: pt states she vapes 3-4 times a day Substance use: current Do You Feel Safe in your Home?: Yes Lack of Transportation: No Lack of Food: Never True Current Housing: I Have Housing Concerned About Future Housing: No Difficulty Paying Gas/Electric Bills: No Difficulty Paying for Meds: No Currently Unemployed: No Education: High School Diploma/GED Difficulty w/ Childcare or Family Care: No Living arrangements: with family Gender identity (if verbalized by the patient): Female Spiritual care concerns: No Anes - Eval Final PreProcedure Day of Procedure 02/08/25 14:29 Patient weight: normal Heart: regular rate and rhythm Lungs: clear to auscultation Airway: Mallampati scale class II Neurological: alert and oriented Last oral intake: >/= 8 hours ASA classification: II Emergent: no Anesthetic plan: proceed Anesthesia type and monitoring: general ETT and standard monitoring Results Review: All pre-operative results and documents have been reviewed as part of the pre-operative evaluation. Informed Consent: The patient's anesthetic plan and its attendant risks and benefits were discussed with the patient/family/POA. Questions were solicited and answers provided to the satisfaction of the patient/family/POA.
[2025-02-09] VITALS (8 sets, daily range): BP systolic 103–118; BP diastolic 49–87; PULSE 44–92; RESP 13–18; TEMP 36.5–36.6; O2SAT 98–100
--- OUTSIDE RECORDS SUMMARY | 2025-02-09 01:57 | XMS_ITS | Clinical Summary ---
Author Organization [facility] [employer] Address [address] [place] [address] Care Team Providers Care Plaster Helper Name Role Phone Darcie English PA-C Primary Care Provider + Source Comments [facility] [employer],non-owned Affiliates and Associated Physician Practices is amultiple site organization consisting of ambulatory clinics and hospital sitesin [place], [place], [place] and [place]. This disclosure is being madepursuant to the Care Everywhere program and may not contain all information available regarding this patient. 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 Gender Identity Not on file Sexual Orientation [...] patient's age to complete this topic Insurance [facility] SELF PAY NO INSURANCE Member Subscriber Plan / Payer (Ef fective for All Dates) Name:Geovanny Goodman Member ID:Not on file Relation to Subscriber:Not on file Name:GEOVANNY GOODMAN Subscriber ID:Not on file (Home) Address: [address] [place] [address] Payer ID:Not on file Group ID:Not on file Type:Self Pay Address: [place], [place] [facility] [place] [facility] Care Teams Plaster Helper Relationship Specialty Start Date End Date Darcie English PA-C [address] [place] [address] PCP - General 12/24/22
--- OUTSIDE RECORDS SUMMARY | 2025-02-09 01:57 | XMS_ITS | Patient Health Record ---
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) 10/05/19 14 Active confirmed ([facility] ) Added By: Una Honeycutt Plan Of Treatment No Information Insurance Providers Payer Name Payer Address Payer Phone Subscriber Number Group Number Insured Name Patient Relationship to Insured Coverage Start Date Coverage End Date Medicaid [facility] [address] [place] [id number] Anu Moss Self - patient is the insured 5 Medicaid Nonbillable [address] [place], [place] [id number] Yuliya Macias Parent 3 Medical (General) History Medical History History ICD Code Med_System: Psychiatric; Disease: ADD/AD HD Surgical History Surgery Date(Month/Year) PET placement 2001 Hospitalization History Reason Date(Month/Year)
--- OUTSIDE RECORDS SUMMARY | 2025-02-09 01:57 | XMS_ITS | Clinical Summary ---
Author Organization [facility] Address [address] [place] [address] Care Team Providers Care Licensed Psychologist Director Name Role Phone Unavailable Primary Care Provider [...]
--- OUTSIDE RECORDS SUMMARY | 2025-02-09 01:57 | XMS_ITS | Data Portability ---
Author Organization 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 Plan of Treatment [...] salpingec joseline, laparosco pic (SURG) [address], [facility]0 [facility] [address], [place], [address], 12/31/2024 09:56:58 hysterosc opy, with endometri al ablation (SURG) [address], [facility], [place], [address], 12/30/2024 11:31:56 Imaging US, transvagi nal 2024 025 [email or web address] [place], [address], [address], [place], [address], 10/28/2024 20:26:16 Medication Orders Depo-Prov era 150 mg/mL intramusc ular syringe 2024 025 Not available 10/29/2024 17:34:13 Mirena 21 mcg/24 hr (up to 8 years) 52 mg intrauter ine device 2024 025 [email or web address] Not available 10/29/2024 17:52:09 Patient TargetsNo targets recorded. Patient InstructionsNo instructions recorded. Reason for Referral None Reported. Results Created Date Observation Date Name Description Value Unit Range Abnormal Flag Note LastModifiedBy Organization Detail LastModifiedTime 10/01/1910/01/2024 CT/GC AND TRICH OMONA S VAGIN ADORE (RRNA ), URINE chlamydia trachomatis, PCR Negati ve negati ve Not Available [facility] (Lab) [address], [place], [address], 10/02/2024 12:04:22 10/01/19 25 10/01/2024 CT/GC AND TRICH OMONA S VAGIN ADORE (RRNA ), URINE neisseria gonorrhoeae, PCR Negati ve negati ve Not Available [facility] (Lab) [address], [place], [address], 10/02/2024 12:04:22 10/01/19 25 10/01/2024 CT/GC AND TRICH OMONA S VAGIN ADORE (RRNA ), URINE trichomonas vaginalis ribosomal RNA (rrna) Negati ve negati ve Not Available [facility] (Lab) [address] [place], [address], 10/02/2024 12:04:22 10/01/19 25 10/01/2024 pregn meliton test, urine HCG negati ve Not Available [place] [address], [place], [address], 10/01/2024 09:57:39 10/29/1910/28/2024 US, trans vagin al No observ ation record ed. [email or web address] [place] [address], [place], [address], 10/28/2024 15:31:04 10/29/19 25 10/28/2024 US, trans vagin al No observ ation record ed. [email or web address] [address] [address], [place], [address], 10/28/2024 20:13:15 Result Notes None recorded. Problems Name Problem SNOMED Code Status Onset Date Resolution Date Notes Provider Name and Address Organization Details Recorded Time Pregnanc y 81840977 Completed 202112/16/2022 Phyllis Torres null, [facility] 5 19:04:31 Mixed anxiety and depressi ve disorder 594657731 Active no meds for 3 years. prozac. Cristo Dang null, [facility] 3 16:05:30 Asthma 358629428 Completed albutero l rarely Cristo Dang [facility], [facility] 3 16:05:30 Mixed anxiety and depressi ve disorder 136504947 Completed no meds for 3 years. prozac. Cristo Dang null, [facility] 3 16:05:29 Subchori onic hematoma 121211801 Completed Cristo Dang null, [facility] 3 16:05:29 Asthma 482428117 Active albutero l rarely Phyllis Torres null, [facility] 5 10:18:28 Nausea and vomiting 48307543 Completed zofran Cristo Dang null, [facility] 3 16:05:30 Uterine size for dates discrepa ncy 787698974 Completed 2022 Yaima Lopez MD [address], [place], [address], [place] [facility] 3 10:46:18 growth restrict ion 22449525 Completed IUGR 7% AC 4% at 34w, MFM 11% Cristo Dang null, [facility] 3 16:05:29 Pregnanc y 29639532 Completed 202308/31/2024 Phyllis Torres null, [facility] 5 19:04:31 Anxiety disorder 639334418 Completed no meds Phyllis Torres null, [facility] 5 10:18:28 History of growth retardat ion 0542832641 9108 Completed pregnanc y in 2022 plan antenata l testing at 32 weeks Phyllis Torres [facility], [facility] 5 10:18:28 Asthma 013423459 Completed albutero l rarely Phyllis Torres [facility], [facility] 5 10:18:28 Problem Notes None recorded. Procedures Surgical History Date Name Laterality Status Provider Name and Address Organization Details Recorded Time 5 IUD Removal completed Jin Nichole MD [address], [place], [address], [facility] 10/29/2024 17:03:11 5 IUD Removal completed Jin Nichole MD [address], [place], [address], [facility] 10/28/2024 14:55:02 5 IUD Insertion completed Jin Nichole MD [address], [place], [address], [facility] 10/28/2024 14:54:51 5 IUD Insertion completed Zahraa Barton CNM [address], [place], [address], [facility] 10/01/2024 10:21:29 4 Control Implant Removal completed Elizabeth Lamb [facility]- [address], [place], [address], [facility] 09/16/2023 16:36:58 3 Control Implant Insertion completed Yaima Lopez MD [address], [place], [address], [facility] 05/09/2023 13:18:32 3 Date of Last Pap Smear completed Merly Fontana [facility] 06/04/2023 17:19:25 3 procedure on ear completed Phyllis Torres [facility] 03/24/2024 10:32:42 Imaging Results None recorded. [...] Updated DateTime 10/28/2024 154.94 cm 20 kg/m2 47806.79 g [facility] 10/28/2024 11:47:33 Date Recorded Body height Body mass index (BMI) Body weight Systolic blood pressure Diastolic blood pressure Provider Name and Address Organization Details Last Updated DateTime 10/29/2024 154.94 cm 19.8 kg/m2 22093.2 g 120 mm[Hg] 82 mm[Hg] [facility] 16:37:55 Date Recorded Body height Body mass index (BMI) Body weight Systolic blood pressure Diastolic blood pressure Provider Name and Address Organization Details Last Updated DateTime 12/27/2024 154.94 cm 21 kg/m2 58186.75 g 109 mm[Hg] 71 mm[Hg] [facility] 12:07:34 Date Recorded Body height Body mass index (BMI) Body weight Systolic blood pressure Diastolic blood pressure Provider Name and Address Organization Details Last Updated DateTime 02/02/2025 154.94 cm 20.4 kg/m2 04021.98 g 114 mm[Hg] 76 mm[Hg] Merly Addi [facility] 15:36:06 Social History Question Answer Notes LastModified by Organizat ion Details LastModified Time Tobacco Smoking Status Never Smoker Tyesha Lyons aristides, [facility] 09/16/2023 16:16:09 Do You Have An Advance Directive? No [email or web address] Information n ot available 10/02/2022 If You Are , What Was Your Level Of Alcohol Consumption Prior To ? Occasional [email or web address] Information not available 04/21/2024 How Many Years Have You Consumed Alcohol? 0 [email or web address] Information not available 04/21/2024 Are You Blind Or Do You Have Difficulty Seeing? No Information n ot available 10/02/2022 What Is Your Level Of Caffeine Consumption? Moderate [email or web address] Information not available 04/21/2024 In The 14 Days Before Symptom Onset, Have You Had Close Contact With A Laboratory-confirm ed COVID-19 While That Case Was Ill? No Information n ot available 10/02/2022 In The 14 Days Before Symptom Onset, Have You Had Close Contact With A Person Who Is Under Investigation For COVID-19 While That Person Was Ill? No [email or web address] Information not available 10/02/2022 Have You Been To An Area Known To Be High Risk For COVID-19? No [email or web address] Information not available 10/02/2022 Are You Deaf Or Do You Have Serious Difficulty Hearing? No [email or web address] Information not available 10/02/2022 What Type Of Diet Are You Following? REGULAR [email or web address] Information n ot available 10/02/2022 What Is The Highest Grade Or Level Of School You Have Completed Or The Highest Degree You Have Received? [id number] Information not available 10/02/2022 Are There Any Guns Present In Your Home? No [email or web address] Information not available 10/02/2022 Do You Use Protection During Sex? No [email or web address] Information not available 10/02/2022 Do You Use Your Seat Belt Or Car Seat Routinely? Yes [email or web address] Information not available 10/02/2022 Do You Have Smoke And Carbon Monoxide Detectors In Your Home? Yes Information not available 04/21/2024 How Much Tobacco Do You Smoke? No [email or web address] Information not available 10/02/2022 Do You Use Sunscreen Routinely? No [email or web address] Information not available 10/02/2022 Has Tobacco Cessation Counseling Been Provided? No [email or web address] Information not available 09/16/2023 Have You Used IV Drugs? No [email or web address] Information not available 10/02/2022 Do You Have Difficulty Walking Or Climbing Stairs? No [email or web address] Information not available 09/16/2023 Sex: Unknown Functional Status Question Answer Note LastModified by Organizat ion Details LastModified Time Do you use any illicit or recreational drugs? No Information not available 04/19/2022 Do you or have you ever used any other forms of tobacco or nicotine? No [email or web address] Information not available 09/16/2023 What is your level of alcohol consumption? None Information not available 04/19/2022 Are you able to walk? YESWOREST [email or web address] Information not available 10/02/2022 Are you able to care for yourself? Yes [email or web address] Information n ot available 09/16/2023 Do you have difficulty dressing or bathing? No [email or web address] Information not available 09/16/2023 What is your exercise level? Occasional Information not available 04/21/2024 Mental Status Question Answer Note LastModified by Organization D etails LastModified Time Do you feel stressed (tense, restless, nervous, or anxious, or unable to sleep at night)? [id number] [email or web address] Information not available 04/21/2024 Family History Relationship Description Onset Age of this Age Resolved Age Notes LastModified by Organization Details LastModified Time Father Depressive disorder [email or web address] Not available 2021 10:16:43 Mother Depressive disorder [email or web address] Not available 2021 10:16:43 Mother Asthma [email or web address] Not available 10:16:54 Mother Anxiety disorder [email or web address] Not available 2021 10:17:04 Sister Depressive disorder [email or web address] Not available 10/02 17:02:38 Maternal Aunt Depressive disorder [email or web address] Not available 10/02 17:02:38 Medical History Condition [...] of Flow (days) 7 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 03/17/2021 Are cycles [...] SNOMED-CT Code Diagnosis ICD10 Code Diagnosis Note [id number] MD Sam Low [address] [address] 04/18/2022 12:20:20 04/18/2022 13:03:22 Uncertain viability of 768236065 O36.80X0 Z3A.01 [id number] MD Sam Low [address],[place] [address] 04/19/2022 10:01:17 04/19/2022 17:23:28 Uncertain viability of 595992087 O36.80X0 Z3A.01 Mixed anxi ety and depressive disorder 858961477 F41.8 Asthma 031800564 J45.90 9 test positive 500968390 Z32.01 Venereal d isease screening 457805074 Z11.3 [id number] MD Sam Low [address],[place] [address] 04/30/2022 13:39:26 05/01/2022 15:21:11 Uncertain viability of 839301953 O36.80X0 Z3A.01 [id number] Yaima Lopez MD [place] [address],[place] [address] 05/01/2022 13:51:54 07/20/2022 20:54:20 [id number] Yaima Lopez MD [place] [address],[place] [address] 06/04/2022 10:37:58 06/04/2022 14:09:16 screening 995344854 Z36.82 [id number] Yaima Lopez MD [place] [address],[place] [address] 06/04/2022 10:39:16 06/05/2022 16:15:38 Routine care 192907276 Z34.91 Mixed anxi ety and depressive disorder 699296106 F41.8 [id number] MD Sam Low [address],[place] [address] 07/05/2022 14:12:50 07/06/2022 09:41:43 Nausea and vomiting 04542962 R11.2 Depressive disorder 3548 9007 F32.A Mixed anxi ety and depressive disorder 332839505 F41.8 [id number] Yaima Lopez MD [place] [address],[place] [address] 07/31/2022 11:23:13 07/31/2022 12:24:53 screening for malformation 855646692 Z36.3 [id number] Yaima Lopez MD [place] [address],[place] [address] 07/31/2022 11:23:50 07/31/2022 14:27:56 Mixed anxiety and depressive disorder 576288982 F41.8 Routine an tenatal care 532412173 Z34.91 screening 2437 04014 Z36.89 [id number] Yaima Lopez MD [place] [address],[place] [address] 09/02/2022 09:57:33 09/02/2022 10:32:37 screening 269962262 Z36.2 [id number] MD Maria E [place] [address],[place] [address] 09/02/2022 09:59:34 09/02/2022 13:23:54 Routine care 343536732 Z34.91 Mixed anxi ety and depressive disorder 101998037 F41.8 Nausea and vomiting 1693 2000 R11.2 [id number] Yaima Lopez MD [place] [address],[place] [address] 09/24/2022 10:53:35 09/24/2022 11:57:17 Routine care 803837331 Z34.91 Uterine si ze for dates discrepancy 359398332 O26.849 [id number] Jin Nichole MD [place] [address],[place] [address] 10/02/2022 15:45:17 10/02/2022 16:53:54 Uterine size for dates discrepancy 649705750 O26.849 Z3A.29 [id number] [facility] [address],[place] [address] 10/02/2022 15:45:38 10/02/2022 18:01:11 Routine care 623645502 Z34.93 [id number] Yaima Lopez MD [place] [address],[place] [address] 10/22/2022 11:40:27 10/22/2022 12:37:41 Routine care 149717581 Z34.91 [id number] MD Sam Low [address],[place] [address] 11/05/2022 09:58:38 11/05/2022 11:05:20 Small for gestational age fetus 662501135 O36.5999 [id number] MD Sam Low [address],[place] [address] 11/05/2022 09:59:01 11/05/2022 11:20:09 growth restriction 13752063 O36.5999 [id number] MD Sam Low [address],[place] [address] 11/05/2022 11:05:30 11/05/2022 12:09:51 growth restriction 58565079 O36.5999 [id number] MD Sam Low [address],[place] [address] 11/12/2022 09:23:06 11/12/2022 10:18:18 condition affecting obstetrical care of mother 281914304 O36.5999 Z3A.35 [id number] MD Sam Low [address],[place] [address] 11/12/2022 09:23:35 11/12/2022 10:39:55 growth restriction 09728043 O36.5999 [id number] MD Sam Low [address],[place] [address] 11/12/2022 09:23:49 11/14/2022 10:58:12 growth restriction 79789984 O36.5999 Routine an tenatal care 541937202 Z34.91 [id number] MD Sam Low [address],[place] [address] 11/19/2022 09:31:11 11/19/2022 10:30:17 growth restriction 11296611 O36.5999 [id number] MD Sam Low [address],[place] [address] 11/19/2022 09:32:09 11/21/2022 13:11:59 growth restriction 19585474 O36.5999 [id number] MD Sam Low [address],[place] [address] 11/19/2022 10:13:58 11/19/2022 11:02:48 Poor growth affecting management 131329083 O36.5930 Z3A.36 [id number] MD Sam Low [address],[place] [address] 11/26/2022 09:47:00 11/26/2022 15:07:11 condition affecting obstetrical care of mother 426358580 O36.93X0 Z3A.37 [id number] MD Maria E [place] [address],[place] [address] 11/26/2022 10:01:50 11/26/2022 11:18:54 growth restriction 98685759 O36.5999 [id number] Yaima Lopez MD [place] [address],[place] [address] 11/26/2022 10:53:45 11/26/2022 11:34:32 growth restriction 96866942 O36.5999 Mixed anxi ety and depressive disorder 616056115 F41.8 [id number] MD Sam Low [address],[place] [address] 12/03/2022 09:21:22 12/03/2022 10:18:51 Poor growth affecting management 499340875 O36.5930 Z3A.38 [id number] MD Sam Low [address],[place] [address] 12/03/2022 09:22:17 12/03/2022 11:20:08 growth restriction 63483976 O36.5999 Uterine si ze for dates discrepancy 319410728 O26.849 Z3A.29 [id number] MD Sam Low [address],[place] [address] 12/03/2022 09:22:30 12/04/2022 18:36:35 growth restriction 97851532 O36.5999 [id number] Yaima Lopez MD [place] [address],[place] [address] 01/06/2023 10:23:12 01/06/2023 11:49:03 care 944257801 Z39.2 [id number] Yaima Lopez MD [place] [address],[place] [address] 04/22/2023 14:15:07 04/23/2023 10:37:28 Gynecologic examination 89066303 Z01.419 Z11.3 Z11.8 Contracept ion care management 841678213 Z30.9 [id number] Yaima Lopez MD [place] [address],[place] [address] 05/09/2023 11:51:46 05/09/2023 13:20:23 Contraception care management 904169702 Z30.9 Implantati on of subcutaneous contraceptive 216913175 Z30.9 [id number] Elizabeth Lamb [facility] [address],[place] [address] 06/04/2023 17:08:13 06/04/2023 17:35:21 Urinary symptoms 903959249 R39.9 Urine culture sentVERY Prominent urinary sx'sRx [...] counseling and review of plan of care. [id number] Elizabeth Lamb [facility] [address],[place] [address] 09/16/2023 16:15:37 09/16/2023 16:51:14 Contraception care management 280032281 Z30.9 Discussed all control options in great [...] SPENT ON PROCEDURE. Removal of subcutaneous contraceptive 513193966 Z30.46 Removal site was cleansed with betadine and 3cc of lidocaine used for anesthesia . Device was removed in normal fashion without difficulty . Steri stips and pressure bandage placed. External hemorrhoids 239 16829 K64.4 Small pea size ext hemorrhoid seen on exam.Likel y the pink tinge she is having with wipe on days she had BM and did not take stool softners.U se softners dailyIncre ase fiber and water [id number] Jin Nichole MD [place] [address],[place] [address] 01/08/2024 14:18:16 01/08/2024 14:40:19 screening 456764957 Z36.87 O36.80X0 Z3A.01 [id number] Jin Nichole MD [place] [address],[place] [address] 01/15/2024 14:50:04 01/15/2024 15:46:53 Uncertain viability of 263248854 O36.80X0 Z3A.01 [id number] Jin Nichole MD [place] [address],[place] [address] 02/02/2024 14:47:55 02/02/2024 15:40:06 test positive 859777661 Z32.01 [id number] Jin Nichole MD [place] [address],[place] [address] 02/02/2024 14:48:22 02/03/2024 02:40:43 Amenorrhea 08189043 N91.2 this patient is a 23year-old female [...] begin routine care at her next visit. [id number] Zahraa Barton CNM [place] [address],[place] [address] 02/27/2024 09:05:39 02/27/2024 10:07:31 Gestation period, 12 weeks 61548293 Z3A.12 [id number] Jin Nichole MD [place] [address],[place] [address] 02/27/2024 09:04:50 02/27/2024 09:42:41 screening 046476301 Z3A.01 Z36.82 Z3A.12 [facility] [address],[place] [address] 03/24/2024 10:19:22 03/24/2024 10:49:25 Gestation period, 15 weeks 0884977 Z3A.15 continue vitamin [id number] Jin Nichole MD [place] [address],[place] [address] 04/21/2024 09:37:15 04/21/2024 10:39:26 screening for malformation 399388503 Z36.3 Z3A.19 [id number] Zahraa Barton CNM [place] [address],[place] [address] 04/21/2024 09:37:33 04/21/2024 11:40:48 Gestation period, 19 weeks 49169431 Z3A.19 continue vitamin [id number] [facility] [address],[place] [address] 05/19/2024 09:40:07 05/19/2024 10:58:07 Routine care 193059879 Z34.93 continue vitamin Pruritic rash 87291061 L 28.2 [id number] Jin Nichole MD [place] [address],[place] [address] 06/23/2024 09:26:27 06/23/2024 10:08:07 History of growth retardation 9649217952 9108 Z87.59 Z3A.28 [id number] [facility] [address],[place] [address] 06/23/2024 09:26:45 06/23/2024 10:30:55 Gestation period, 28 weeks 77740218 Z3A.28 continue vitamin [id number] [facility] [address],[place] [address] 07/07/2024 09:42:33 07/07/2024 10:21:19 Routine care 460437286 Z34.93 continue vitamin [id number] Zahraa Barton CNM [place] [address],[place] [address] 07/21/2024 10:45:03 07/21/2024 12:08:57 Gestation period, 32 weeks 5510277 Z3A.32 continue vitamin [id number] Jin Nichole MD [place] [address],[place] [address] 07/28/2024 09:02:55 07/28/2024 09:35:18 Past history of small for gestational age baby 039905090 Z87.59 Z3A.33 [id number] Jin Nichole MD [place] [address],[place] [address] 07/28/2024 09:05:04 07/29/2024 15:23:22 growth restriction 32576281 O36.5999 [id number] [facility] [address],[place] [address] 07/28/2024 09:05:27 07/28/2024 10:33:08 Gestation period, 33 weeks 32596236 Z3A.33 continue vitamin [id number] Jin Nichole MD [place] [address],[place] [address] 08/04/2024 09:52:28 08/04/2024 14:04:12 61208099 Z33.1 grow th restriction 57879668 O36.5999 Z3A.34 [id number] MD Maria E [place] [address],[place] [address] 08/04/2024 09:52:43 08/04/2024 11:08:20 Past history of small for gestational age baby 154307287 Z87.59 Z3A.34 [id number] [facility] [address],[place] [address] 08/04/2024 09:53:10 08/04/2024 11:42:47 Gestation period, 34 weeks 43829792 Z3A.34 continue vitamin Vulval irritation 039969 003 N90.89 [id number] Jin Nichole MD [place] [address],[place] [address] 08/11/2024 11:58:44 08/11/2024 12:34:40 Past history of small for gestational age baby 477844549 Z87.59 Z3A.35 [id number] BING FARAH MD [place] [address] [place] [address] 08/11/2024 11:58:58 08/12/2024 10:57:10 growth restriction 46759825 O36.5999 [id number] [facility] [address] [place] [address] 08/13/2024 09:54:41 08/13/2024 10:51:29 Gestation period, 36 weeks 81992728 Z3A.36 Small for gestational age fetus 517419698 O36.5999 [id number] Zahraa Barton [facility] [address],[place] [address] 09/17/2024 10:00:43 09/17/2024 11:19:42 care 039983703 Z39.2 f/u 2 weeks iud placement, abstain until placement [id number] Zahraa Barton [facility] [address],[place] [address] 10/01/2024 09:40:29 10/01/2024 10:55:09 Insertion of intrauterine contraceptive device 09089993 Z30.430 [id number] Jin Nichole MD [place] [address],[place] [address] 10/28/2024 10:43:33 10/28/2024 11:45:19 Mechanical complication of intrauterine contraceptive device 548710643 T83.39XA [id number] Jin Nichole MD [place] [address],[place] [address] 10/28/2024 11:37:07 10/28/2024 14:58:51 Insertion of intrauterine contraceptive device 83396874 Z30.430 Contracept ion care management 524159274 Z30.9 IUD was removed and replaced without complicati ons. She will have a ultrasound to confirm placement. [id number] MD Sam Condon [address],[place] [address] 10/29/2024 15:49:59 11/01/2024 09:53:07 Contraception care management 178086040 Z30.9 IUD was removed without complicati ons. She tollerated it well [id number] MD Sam [place] [address],[place] [address] 12/27/2024 11:28:29 12/27/2024 13:49:53 Sterilization education 483859970 Z30.09 Menorrhagia 075573574 N9 2.0 This patient is a 24-year-ol [...] l ablation with laparoscop ic bilateral salpingect coelman. I spent over 40 minutes on her [...] there is risk of hemorrhage and infection. [id number] Jin Nichole MD [place] [address] [address] 02/02/2025 14:41:56 02/02/2025 16:06:16 Menometrorrhagia 348830845 N92.1 Unwanted fertility 79148 5005 Z30.09 this patient is a 24-year-ol d female with severe menorrhagi a and unwanted fertility. We have agreed to perform laparoscop ic bilateral salpingect colemna and endometria l ablation with hysterosco py. [...] Serrato Member ID Guarantor Name 02/06/2025 1 [facility] - DOS ON OR AFTER 21 (MEDICAID REPLACEMENT - HMO) Anu Rivera [id number] Anu Rivera Notes Date Note Type Note [...] proceed. Jin Nichole MD [address], [place], [address], [facility] 10/28/2024 14:55:58 10/29/2024 text/html 24 yo female presents for IUD removal. The procedure was explained to the patient in detail. She understands the procedure. She understands the risks, benefits, and alternatives. She has completed the informed consent process and is ready to proceed. Merly irving, [facility] 10/29/2024 17:27:02 12/27/2024 text/html This patient [...] infection. Jin Nichole MD [address], [place], [address], [facility] 12/27/2024 13:31:09 02/02/2025 text/html this [...] infection. Jin Nichole MD [address], [place], [address], [facility] 02/02/2025 16:02:20 OBGyn Episode Ob Episode Information Episode Created Date Number of Fetuses Patient Bloodtype Patient rh Status Prepregnancy Weight lbs Domestic Partner Domestic Partner Phone Father Name Engraver Hand Soft Metals Status 06/04/20 22 1 O Positive 98 CLOSED Fetus Data First Name Last Name Admitted to NICU Weight (g) Sex Living Outcome Pediatric Complications Fetus ID Race Codes Race Delivery Type 2806.60 05 F true Full Term IUGR 32524 Vaginal Delivery Problems Problem Notes Jessica ptMFM 11/08 145P u/s a nd NST Problem Name Start Date End Date Resolution Snomed Code Not e growth restriction 39433062 IUGR 7% AC 4% a t 34w, MFM 11% Asthma 459791255 albuterol rarely Mixed anxiety and depressive disorder 047578092 no meds for 3 years. prozac. Subchorionic hematoma 47041406 4 Nausea and vomiting 60141040 zofran Tuan Calculation Initial Tuan Date Initial [...] Date Ultra Sound Latest Days Gestation 0 [id number] 06/04/2022 12/16/19 23 0 Pre- Flowsheet Flowsheet [...] Weight in lbs Pre/Post Dialysis Refused Weight 105.888420001553 BP Diastolic BP Location Tested BP Systolic [...] Weight in lbs Pre/Post Dialysis Refused Weight 108.293713546007 BP Diastolic BP Location Tested BP Systolic [...] Weight in lbs Pre/Post Dialysis Refused Weight 114.301177285216 BP Diastolic BP Location Tested BP Systolic [...] Weight in lbs Pre/Post Dialysis Refused Weight 115.119290405664 BP Diastolic BP Location Tested BP Systolic [...] Weight in lbs Pre/Post Dialysis Refused Weight 119.651012006628 BP Diastolic BP Location Tested BP Systolic [...] Weight in lbs Pre/Post Dialysis Refused Weight 118.027848876056 BP Diastolic BP Location Tested BP Systolic [...] Weight in lbs Pre/Post Dialysis Refused Weight 126.80252757414 BP Diastolic BP Location Tested BP Systolic [...] Weight in lbs Pre/Post Dialysis Refused Weight 127.811967864342 BP Diastolic BP Location Tested BP Systolic [...] Weight in lbs Pre/Post Dialysis Refused Weight 127.326306416816 BP Diastolic BP Location Tested BP Systolic [...] Weight in lbs Pre/Post Dialysis Refused Weight 130.172474550396 BP Diastolic BP Location Tested BP Systolic [...] Weight in lbs Pre/Post Dialysis Refused Weight 130.398497204600 BP Diastolic BP Location Tested BP Systolic [...] Weight in lbs Pre/Post Dialysis Refused Weight 128.154122527573 BP Diastolic BP Location Tested BP Systolic [...] Estim ated Date of Delivery false Thalassemia (Arabic, Maltese, Mediterranean, Or Background): MCV < 80 false Neural Tube Defect (Meningomyelocele, Spina Bifi da, Or Anencephaly) false Congenital Heart Defect false Down Syndrome false Álvaro-Sachs (eg, Gnosticist, Cajun, Spanish-Surinamese) f alse Pasquale Disease false Sickle Cell Disease Or Trait () false Hemophilia Or Other Blood Disorders false Muscular Dystrophy false Cystic Fibrosis false [place]'s Chorea false Intellectual Disability/Autism false If Yes, [...] Domestic Partner Domestic Partner Phone Father Name Engraver Hand Soft Metals Status 02/24/20 24 1 O Positive 100 Shemar Ashleigh CLOSED Fetus Data First Name Last Name Admitted to NICU Weight (g) Sex Living Outcome Pediatric Complications Fetus ID Race Codes Race Delivery Type 2976.69 75 F [place] [address] Vaginal Delivery Problems Problem Notes considering tubal ligation a fter - make sure pt signs consent Problem Name Start Date End Date Resolution Snomed Code Not e Anxiety disorder 739576404 no meds History of growth retardation [id number] pregnan cy in lan testing at 32 weeks Asthma 308572209 albuterol rarely Tuan Calculation Initial Tuan Date [...] Weight in lbs Pre/Post Dialysis Refused Weight 101.287160513291 BP Diastolic BP Location Tested BP Systolic [...] Type Weight in lbs Pre/Post Dialysis Refused 101.123812469923 BP Diastolic BP Location Tested BP Systolic [...] Type Weight in lbs Pre/Post Dialysis Refused 109.473997173377 BP Diastolic BP Location Tested BP Systolic [...] Type Weight in lbs Pre/Post Dialysis Refused 113.953423678213 BP Diastolic BP Location Tested BP Systolic [...] Type Weight in lbs Pre/Post Dialysis Refused 115.425678529940 BP Diastolic BP Location Tested BP Systolic [...] Type Weight in lbs Pre/Post Dialysis Refused 120.267729237584 BP Diastolic BP Location Tested BP Systolic [...] Weight in lbs Pre/Post Dialysis Refused Weight 117.747454610680 BP Diastolic BP Location Tested BP Systolic [...] Weight in lbs Pre/Post Dialysis Refused Weight 122.708991240720 BP Diastolic BP Location Tested BP Systolic BP Type 65 100 Fetus Heart Rate Present Fetus Movement Comments Flowsheet Date 07/28/2024 Langston Score Blood Edema Fundus Height Fundus Units Glucose Ketones Leukocytes Nitrite Labor Signs Protein Cervic Dilation Cervic Effacement Cervic Station none Type Weight in lbs Pre/Post Dialysis Refused 122.374448993349 BP Diastolic BP Location Tested BP Systolic [...] Type Weight in lbs Pre/Post Dialysis Refused 119.212554871815 BP Diastolic BP Location Tested BP Systolic [...] Weight in lbs Pre/Post Dialysis Refused Weight 121.667959552744 BP Diastolic BP Location Tested BP Systolic BP Type 61 98 Fetus Heart Rate Present Fetus Movement Comments Flowsheet Date 08/13/2024 Langston Score Blood Edema Fundus Height Fundus Units Glucose Ketones Leukocytes Nitrite Labor Signs Protein Cervic Dilation Cervic Effacement Cervic Station 3cm 80% -2 Type Weight in lbs Pre/Post Dialysis Refused Weight 119.839643149490 BP Diastolic BP Location Tested BP Systolic [...] Weight in lbs Pre/Post Dialysis Refused Weight 106.152045366308 BP Diastolic BP Location Tested BP Systolic [...] true Jin Nichole MD labor and delivery [id number] Discharge Information Feeding Method Contraceptive Method Maternal HG B and HCT Levels
[2025-02-09 06:55] LABS: BEDSIDEPREGUCG Negative (Negative)
[2025-02-09] MEDS: ACETAMINOPHEN 500 MG TABLET 1000 MG PO (07:12)
[2025-02-09] MEDS: LACTATED RINGERS 1,000 ML 30 ML IV CONT (07:20)
[2025-02-09] MEDS: KETOROLAC 15 MG/ML VIAL (*BKC) IV PUSH (07:21)
[2025-02-09] MEDS: SCOPOLAMINE 1 MG PATCH 1 PATCH TRANSDERM (07:36)
--- NOTE | 2025-02-09 08:24 | WPDHPUPDATE1 ---
History and Physical Update Update Date/Time: 02/09/25 08:24 History and Physical has been reviewed, including an updated exam of the patient. There are NO changes in the patient's condition. Risks, benefits, and alternatives have been discussed and questions answered. Patient agrees to proceed with procedure.
--- NOTE | 2025-02-09 09:24 | S_PTH ---
PATIENT: Anu Moss LOC: [facility] U#:[id number] AGE/SX: 24/F ROOM: RE02/09/[address]: Jin Nichole MD : 2000 BED: DIS: 02/09/2025 SPEC #: [id number] RECD: 02/09/25 11:26 STATUS: NOEL REHeath #: [id number] RADHA: 02/09/25 09:[address]: Jin Nichole DEPT: [facility] RECD BY: Deidre Coppola ENTERED: 02/09/25 11:26 SP TYPE: Surgical OTHR DR: SPORTING GOODS SALESPERSON PHYSICIAN Tissues: A - Fallopian Tube Bilateral B - Endometrial Curettings Procedures: Gross and Microscopic Level 2 Hematoxylin and Eosin Stain Gross and Microscopic Level 4
--- NOTE | 2025-02-09 09:41 | P.OP_ITS ---
Procedure Note - Detailed Date of Procedure 02/09/25 Pre-op Diagnosis Menorrhagia with reg cycle, desire Sterilization Post-op Diagnosis Same Procedure Performed Laparoscopic bilateral salpingectomy with endometrial ablation and hysteroscopy. Surgeon Jin Nichole MD Anesthesia General Indications Menorrhagia, female sterilization Findings normal anatomy, hemoperitoneum Description of Procedure Patient was taken the operating room. She has prepped draped in the dorsal lithotomy position after induction of general anesthesia. A 5 mm abdominal incision was made in left upper quadrant of the abdomen with scalpel. A 5 mm trocars inserted the intra-abdominal cavity under direct visualization of the scope. Pneumoperitoneum was achieved. A 5 mm periumbilical incision was made using a scalpel on the abdominal scan. A 5 mm trocar was inserted the intra- abdominal cavity under visualization of the scope. A 5 mm incision made left lower quadrant of the abdomen. A 5 mm trocar was inserted the intra-abdominal cavity and direct visualization of the scope. The bilateral fallopian tubes were removed. The paratubal tissue in the area of the uterus was grasped with the LigaSure cautery and transected after being cauterized. The paratubal tissue from the ovary to the uterine cornu was cauterized and transected with LigaSure cautery. This was all done in a bilateral fashion. The tube was transected at the area of the uterine cornua and the tubes was removed through the 5 mm trocar site. The pneumoperitoneum was reduced. The trocars were removed. The skin was closed with subcuticular 4 Monocryl and covered with Dermabond. Our attention was then turned to the endometrial ablation portion of the procedure. A speculum was placed in the vagina. The cervix was grasped with a tenaculum. The cervix was dilated to approximately 8 mm with Benitez dilators. The hysteroscope was inserted. And the below findings were noted. All of the intrauterine surfaces were curettaged with a medium-size curette and the specimens were collected. Measurements of the cervix were taken using the uterine sound and the hysteroscope. The intrauterine cavity measurements were entered into the handpiece. The device was inserted into the intrauterine cavity and the array was expanded. The balloon cuff was inflated. When an adequate seal was formed the safety and energy cycles were initiated and co mpleted. The array was collapsed, the balloon was deflated. The insert was withdrawn. The hysteroscope was reinserted and a well desiccated intrauterine cavity was observed. The patient was taken recovery room stable condition. Sponge lap and needle counts were correct x2. She tolerated the procedure well. Pathology Yes Complications No immediate complications Condition Stable Disposition PACU
[2025-02-09] MEDS: oxyCODONE HCL (*CRX) 5 MG TAB IR PO (10:58)
--- NOTE | 2025-02-09 10:58 | SUR.OPER ---
fluid deficit 90
== END 2025-02-09 11:42 | disposition home or self-care (01) ==
PROVIDERS: Visit Provider Obstetrics & Gynecology
PROC: 0UDB8ZZ Extraction of Endometrium, Via Natural or Artificial Opening Endoscopic (ICD-10-PCS; CPT 58558; principal; 2025-02-09 08:30)
DX: Z30.2 Encounter for sterilization (principal); G89.18 Other acute postprocedural pain; D64.9 Anemia, unspecified; J45.909 Unspecified asthma, uncomplicated; F41.8 Other specified anxiety disorders; F98.8 Other specified behavioral and emotional disorders with onset usually occurring in childhood and adolescence; M41.9 Scoliosis, unspecified; F17.290 Nicotine dependence, other tobacco product, uncomplicated
CPT/HCPCS: 58661; 58563; 88302; 88305; A9270; J1100; J1885; J2003; J2250; J2405; J2704; J3010; J7030; J7120

== ENCOUNTER 2025-06-30 12:40 | Emergency (ER) | payer OTHER, SELFPAY ==
[2025-06-30 12:46] VITALS: BP 100/65; PULSE 85; RESP 16; TEMP 36.8; O2SAT 99
--- NOTE | 2025-06-30 14:16 | ED.SKABFB ---
HPI - Skin/Abscess/Foreign Bdy General Chief complaint: Skin/Abscess/Foreign Body Stated complaint: bumps on buttocks Time Seen by Provider: 06/30/25 13:00 Source: patient and RN notes reviewed Mode of arrival: ambulatory Limitations: no limitations History of Present Illness HPI narrative: 25-year-old female presents Express Care with family member complain of rash to tailbone. Patient noticed it 2 days ago. Patient reports the thompson in its pruritic. Patient says it is primarily on the right side of her tailbone. Patient denies any other suspicious lesions or rashes to her genitals or anus. Patient denies any concerns STIs. Patient is using topical cream without relief. Patient has any fevers antibiotics, drainage, chills, nausea vomiting, or any other symptoms. Related Data Home Medications ?Medication ?Instructions ?Recorded ?Confirmed ?Last Taken ?Type ferrous sulfate 325 mg (65 mg 325 mg PO DAILY 08/05/24 02/09/25 02/08/25 History iron) tablet Allergies Allergy/AdvReac Type Severity Reaction Status Date / Time No Known Allergies Allergy Mild Verified 06/30/25 12:41 Review of Systems Review of Systems: CONSTITUTIONAL: Denies fever, chills, or sweats. EYES: Denies visual changes, redness, or discharge. ENT: Denies rhinorrhea, congestion, sore throat, or otalgia. CARDIOVASCULAR: Denies chest pain, palpitations, or edema. RESPIRATORY: Denies cough or dyspnea. GASTROINTESTINAL: Denies abdominal pain, nausea, vomiting, or diarrhea. GENITOURINARY: Denies dysuria or hematuria. SKIN: Positive for rash or itching. MUSCULOSKELETAL: Denies back pain, joint pain, or myalgia. NEUROLOGIC: Denies headache, numbness, or weakness. PSYCHIATRIC: Denies anxiety or depression. All other systems reviewed are negative, except as documented in HPI. [facility] Past Medical History Medical History Multiple sclerosis (Unknown) ADD (attention deficit disorder) Scoliosis Asthma Anxiety and depression Migraine Migraine Family History Family History Mother Hypertension Bipolar 1 disorder Grandparent High cholesterol Bipolar 1 disorder Father Bipolar 1 disorder Social History Social History (Reviewed 06/30/25 @ 14:17 by TIM Patten Tobacco type: e-cigarettes/vaping Additional smoking assessment comments: pt states she vapes 3-4 times a day Substance use: current Do You Feel Safe in your Home?: Yes Lack of Transportation: No Lack of Food: Never True Current Housing: I Have Housing Concerned About Future Housing: No Difficulty Paying Gas/Electric Bills: No Difficulty Paying for Meds: No Currently Unemployed: No Education: High School Diploma/GED Difficulty w/ Childcare or Family Care: No Living arrangements: with family Gender identity (if verbalized by the patient): Female Spiritual care concerns: No Comments At the time of my signature, I reviewed and agree with the nursing past medical, surgical, social, and family history. There is no relevant family history pertinent to the patient complaint. Exam Narrative: GENERAL: This is a well-nourished, well-developed adult, in no apparent distress. They are non ill-appearing, nontoxic appearing. HEAD: normocephalic, atraumatic. EYES: Sclera clear/white. Conjunctiva normal. Vision is grossly intact. Extraocular movements intact EARS: External ears normaHearing grossly intact. NOSE: External nose normal THROAT: Mucous membranes moist, NECK: Neck supple, CARDIOVASCULAR: Regular rate and rhythm RESPIRATORY: Respiratory rate normal, respiratory effort nonlabored, no respiratory distress SKIN: Coccyx: Tailbone is erythematous with erythematous vesicular lesions to the right lateral tailbone/upper right buttocks. Mildly tender to palpate. No other suspicious lesions or rashes to rectum. NEURO: awake, alert, and oriented to person, place and time. There were no obvious focal neurologic abnormalities. EXTREMITIES: No joint tenderness, effusion, or edema noted. Course Course Emergency Course: Portions of this record may have been created with voice recognition software Level of Care: Express Care Visit Vital Signs Vital signs: Vital Signs Temperature 98.3 F 06/30/25 12:46 Pulse Rate 85 06/30/25 12:46 Respiratory Rate 16 06/30/25 12:46 Blood Pressure 100/65 06/30/25 12:46 Pulse Oximetry 99 06/30/25 12:46 Oxygen Delivery Room Air 06/30/25 12:46 Temperature 98.3 F 06/30/25 12:46 Pulse Rate 85 06/30/25 12:46 Respiratory Rate 16 06/30/25 12:46 Blood Pressure 100/65 06/30/25 12:46 Pulse Oximetry 99 06/30/25 12:46 Oxygen Delivery Room Air 06/30/25 12:46 Reviewed MDM - Skin/Abscess/Foreign Bdy MDM Narrative Medical decision making narrative: Yumiko MILTON is present in room as communications representative during skin exam. There is concern for herpes. Herpes culture pending. Will presumptively treat with valacyclovir. Discussed physical exam findings. Advised supportive measures and signs/symptoms to go to the ER. Pt is appropriate for outpt treatment and f/u. Differential Diagnosis Differential diagnosis: Likely abscess of skin or subcutaneous tissue, cellulitis, contact dermatitis and other (Pilonidal cyst, herpes simplex) Lab Data Attestation: I reviewed the patient's lab results. Labs: Lab Results 06/30/25 Range/Units 13:10 HSV I DNA PCR Pending HSV II DNA PCR Pending Critical Care Time Critical Care Time Critical Care Time: No Discharge Plan Discharge Clinical Impression: Herpes simplex Patient Disposition: Home Condition: Stable Instructions: Antibiotic Form, Genital Herpes Infection (ED) Additional Instructions: You will be notified of the results of your herpes swab this may take up to week to come back. We will go ahead presumptively treat you for herpes. Take valacyclovir as directed. Lesions should heal within 10 days of treatment. You are most contagious with active open wounds. However it and may still be spread without sores or open wounds. Avoid scratching at the area. Follow-up PCP in 3-5 weeks. Return to ER if you developed worsening redness, pain, fevers, body aches, chills, green/yellow drainage, or any serious concerns. Patient Language: Icelandic Prescriptions: New valacyclovir 1 gram tablet 1,000 mg PO Q12H 10 Days Qty: 20 0RF No Action ferrous sulfate 325 mg (65 mg iron) tablet 325 mg PO DAILY Follow-up/Referrals: PHYSICIAN,GAS ENGINE OPERATOR [employer] [Primary Care Provider, Internal Medicine] Stand Alone Forms: Work/School Release IP Time of Disposition: 13:20
[2025-07-03 16:08] LABS: HSV-1 DNA Positive (Negative); HSV-2 DNA Negative (Negative)
== END 2025-06-30 13:24 | disposition home or self-care (01) ==
DX: B00.9 Herpesviral infection, unspecified (principal); F17.290 Nicotine dependence, other tobacco product, uncomplicated
CPT/HCPCS: 86615; 87529; 99213; G0463

== ENCOUNTER 2025-07-29 11:19 | Emergency (ER) | payer OTHER, SELFPAY ==
[2025-07-29 11:30] VITALS: BP 113/71; PULSE 82; RESP 18; TEMP 37.1; O2SAT 100
--- NOTE | 2025-07-29 11:51 | ED.DENTAL ---
HPI - Dental/Oral General Chief complaint: Dental/Oral Stated complaint: Dental Pain/Swollen Right Side Face Time Seen by Provider: 07/29/25 11:51 Source: patient, RN notes reviewed and old records reviewed Mode of arrival: ambulatory Limitations: no limitations History of Present Illness HPI Narrative: 25-year-old female presents to the [facility] with right lower dental pain, swelling that started yesterday. States that she has taken Tylenol. Has very poor dentition. Treatment prior to arrival: other ( Tylenol) Related Data Allergies Allergy/AdvReac Type Severity Reaction Status Date / Time No Known Allergies Allergy Mild Verified 07/29/25 11:26 Review of Systems Review of Systems: All systems reviewed & are unremarkable except as noted in HPI and below Constitutional: Constitutional: Reports no additional constitutional complaints ENT: Reports as per HPI and Reports dental pain Cardiovascular: Cardiovascular: Reports no additional cardiovascular complaints, Denies chest pain and Denies dyspnea Respiratory: Respiratory: Reports no additional respiratory complaints, Denies chest congestion, Denies cough and Denies dyspnea Musculoskeletal: Musculoskeletal: Reports no additional musculoskeletal complaints Integumentary/Breasts: Skin/Breast: Reports system reviewed and no additional complaints, except as docu PMFSH Past Medical History Medical History Multiple sclerosis (Unknown) ADD (attention deficit disorder) Scoliosis Asthma Anxiety and depression Migraine Migraine Family History Family History Mother Hypertension Bipolar 1 disorder Grandparent High cholesterol Bipolar 1 disorder Father Bipolar 1 disorder Social History Social History Smoking status: Current every day smoker Tobacco type: e-cigarettes/vaping Additional smoking assessment comments: pt states she vapes 3-4 times a day Substance use: current Lack of Transportation: No Lack of Food: Never True Current Housing: I Have Housing Concerned About Future Housing: No Difficulty Paying Gas/Electric Bills: No Difficulty Paying for Meds: No Currently Unemployed: No Education: High School Diploma/GED Difficulty w/ Childcare or Family Care: No Living arrangements: with family Gender identity (if verbalized by the patient): Female Spiritual care concerns: No Comments At the time of my signature, I reviewed and agree with the nursing past medical, surgical, social, and family history. There is no relevant family history pertinent to the patient complaint. Exam Const: General: cooperative, healthy appearing, comfortable, no acute distress, well developed, alert and well nourished Nutritional Appearance: well nourished Orientation/consciousness: patient oriented x3 Limitations: no limitations HENMT: Head: normal to inspection Ears: hearing grossly normal bilaterally, external ears normal, TM's normal bilaterally, EAC's normal, mastoids normal and no periauricular adenopathy Face and sinus: normal facial exam and sinuses nontender Mouth: Yes Normal oral and palatal mucosa present, Yes lip normal, Yes tongue normal and Yes moist mucous membranes Teeth image:  1. decay With surrounding erythema and edema Eyes: General: appearance normal, both eyes and all related structures Alignment and Position: alignment normal Neck: Neck: normal visual inspection, full ROM, no lymphadenopathy and no meningeal signs Chest: Chest palpation & inspection: normal inspection of the chest Resp: Effort & Inspection: normal respiratory effort and able to speak in complete sentences Auscultation: clear to auscultation bilaterally, no crackles, no rales, no rhonchi and no wheezes Cardio: Rate: regular rate Skin: General skin exam: normal color and no rashes or lesions noted Neuro: General: patient oriented x3, gait normal, moves all extremities and no meningeal signs Cognition (Neuro): normal cognition Speech: normal speech Gait exam (Neuro): Normal gait present Extrem: General: normal to inspection, full ROM, capillary refill normal and normal gait Psych: Appearance: grossly normal and well kempt Mental Status: mental status grossly normal Speech and movement: Normal speech and movement present and Clear speech present Affect: normal affect Attitude: cooperative Course Course Level of Care: Express Care Visit Vital Signs Vital signs: Vital Signs Temperature 98.8 F 07/29/25 11:30 Pulse Rate 82 07/29/25 11:30 Respiratory Rate 18 07/29/25 11:30 Blood Pressure 113/71 07/29/25 11:30 Pulse Oximetry 100 07/29/25 11:30 Oxygen Delivery Room Air 07/29/25 11:30 Temperature 98.8 F 07/29/25 11:30 Pulse Rate 82 07/29/25 11:30 Respiratory Rate 18 07/29/25 11:30 Blood Pressure 113/71 07/29/25 11:30 Pulse Oximetry 100 07/29/25 11:30 Oxygen Delivery Room Air 07/29/25 11:30 reviewed MDM MDM Narrative Medical decision making narrative: patient sitting comfortably in exam room. Patient is nontoxic, vitals stable. Patient presents with right lower dental discomfort, swelling. Poor dentition noted. Concern for infection in tooth 31 or 30 to surrounding erythema, swelling. Patient is appropriate for outpatient treatment with close follow-up. Encouraged them to find dental provider. Discharge instructions reviewed with patient, as well as provided in writing per nursing staff. The instructions also include specific and strict return/GO TO THE ER as well as f/u information. All questions have been answered, and the patient deny any further questions with discharge and discharge plan. Some parts of this dictation were generated by voice recognition software and may contain typographical and/or grammatical inaccuracies. Differential Diagnosis Differential Diagnosis: Differential diagnostic considerations for dental issues include gingival abscess, dental caries, toothache, dental abscess, fracture of tooth, aphthous ulcer, TMJ. Discharge Plan Discharge Clinical Impression: Dental caries, Dental abscess Patient Disposition: Home Condition: Stable Instructions: Antibiotic Form, Dental Abscess (ED) Additional Instructions: Finish the entire course of antibiotics [place] teeth twice daily and use a good mouthwash After every time you eat be sure to use salt water rinses. Apply ice to face to help with pain. Take Tylenol alternating with Motrin as needed for pain. You can alternate every 4 hours You need to follow-up with a dental provider as soon as possible for further evaluation and treatment. A list of dental providers has been given to you Follow up with a Primary Care Provider (PCP) about medical needs. A PCP can help keep you healthy by preventive medicine and screening. Go to the ER for New or worsening symptoms. Patient Language: Italian Prescriptions: New penicillin V potassium 500 mg tablet 500 mg PO QID 7 Days Qty: 28 0RF Follow-up/Referrals: PHYSICIAN,GRAPHIC PRODUCTION ARTIST [Primary Care Provider, Internal Medicine] Stand Alone Forms: Work/School Release IP Time of Disposition: 11:59
== END 2025-07-29 12:05 | disposition home or self-care (01) ==
PROVIDERS: Emergency Provider Nurse Practitioner
DX: K02.9 Dental caries, unspecified (principal); K04.7 Periapical abscess without sinus; F17.290 Nicotine dependence, other tobacco product, uncomplicated; J45.909 Unspecified asthma, uncomplicated; M41.9 Scoliosis, unspecified
CPT/HCPCS: 99213; G0463